=== PATIENT | female | born 1935 | race Caucasian/White ===

== ENCOUNTER 2017-10-18 13:00 | Inpatient (IN) | payer MEDICARE, OTHER ==
[2017-10-18 13:44] LABS: CHLORIDE,CL 96 mEq/L (98-106); SODIUM,NA 136 mEq/L (136-145)
[2017-10-18] MEDS ORDERED: Acetaminophen 325 MG Tab PO ONE (13:50)
--- NOTE | 2017-10-18 14:17 | EDM.PDOC ---
ED HPI GENERAL MEDICAL PROBLEM - General Chief Complaint: Respiratory Problem Stated Complaint: cough, chills Time Seen by Provider: 10/18/17 13:40 Source of Information: Reports: Patient, Family History Limitations: Reports: No Limitations - History of Present Illness INITIAL COMMENTS - FREE TEXT/NARRATIVE: Nathalia is a 81 yo female who presents to the ER, accompanied by her daughter, with concerns of not feeling well. States she had a cold this last week along with her . She states her and her both were started on Zpacks and she gradually got worse. States she became really weak today and has been running a fever. Admits to an acute cough that is nonproductive. States she has body aches as well. Admits to having both pneumococcal vaccines in the past and yearly influenza vaccines. She states she has not taken anything for the fevers. She has been having a hard time getting around due to the weakness. States she does currently smoke and has a 50+ year history. Duration: Getting Worse Location: Reports: Chest Chest Pain Score (Numeric/FACES): 7 - Related Data Allergies Allergy/AdvReac Type Severity Reaction Status Date / Time codeine Allergy Hives Verified 10/18/17 13:14 diazepam [From Valium] Allergy Hallucinati Verified 10/18/17 13:14 ons regadenoson [From Lexiscan] Allergy Syncope Verified 10/18/17 13:14 tramadol Allergy Difficulty Verified 10/18/17 13:14 Breathing Home Meds: Home Meds Aspirin [Ecotrin] 325 mg PO BID 02/01/15 [History] Cholecalciferol (Vitamin D3) [Vitamin D3] 5,000 unit PO DAILY 02/01/15 [History] Docusate Sodium [Colace] 100 mg PO BEDTIME 02/01/15 [History] Lutein 20 mg PO DAILY 02/01/15 [History] Magnesium 250 mg PO DAILY 02/01/15 [History] Vitamin B Complex [B Complex] 1 each PO DAILY 02/01/15 [History] Vitamin E 400 unit PO DAILY 02/01/15 [History] atorvaSTATin [Lipitor] 20 mg PO WITHLUNCH 02/01/15 [History] Denosumab [Prolia] 60 mg SUBCUT Q6M 02/13/15 [History] Meclizine HCl 25 mg PO Q8HR PRN 08/14/16 [History] Calcium Carbonate [Calcium] 600 mg PO DAILY 10/18/17 [History] Past Medical History HEENT History: Reports: Allergic Rhinitis Cardiovascular History: Reports: High Cholesterol Gastrointestinal History: Reports: Chronic Constipation, GERD Musculoskeletal History: Reports: Osteoporosis Neurological History: Reports: Vertigo - Past Surgical History Female Surgical History: Reports: Other (See Below) Neurological Surgical History: Reports: Lumbar Spine Musculoskeletal Surgical History: Reports: Other (See Below) Social & Family History - Family History Family Medical History: Noncontributory - Tobacco Use Smoking Status *Q: Current Every Day Smoker Years of Tobacco use: 50 Packs/Tins Daily: 0.5 - Caffeine Use Caffeine Use: Reports: Coffee, Tea - Recreational Drug Use Recreational Drug Use: No ED ROS GENERAL - Review of Systems Review Of Systems: See Below Constitutional: Reports: Fever, Chills, Weakness, Fatigue HEENT: Reports: Sinus Problem Respiratory: Reports: Shortness of Breath, Wheezing, Cough. Denies: Sputum Cardiovascular: Reports: Lightheadedness. Denies: Chest Pain, Palpitations, Syncope GI/Abdominal: Denies: Abdominal Pain, Constipation, Diarrhea, Nausea, Vomiting : Reports: No Symptoms Musculoskeletal: Reports: Other (generalized achiness) Neurological: Reports: No Symptoms Psychiatric: Reports: No Symptoms ED EXAM, GENERAL - Physical Exam Exam: See Below Exam Limited By: No Limitations General Appearance: Alert, Mild Distress, Moderate Distress Eye Exam: Bilateral Eye: Normal Inspection Ears: Normal External Exam, Normal Canal, Hearing Grossly Normal, Normal TMs Nose: No Blood, Clear Rhinorrhea. No: Nasal Tenderness, Nasal Swelling Throat/Mouth: Normal Inspection, Normal Lips, Normal Oropharynx, Normal Voice, No Airway Compromise Head: Atraumatic, Normocephalic Neck: Normal Inspection, Supple, Non-Tender. No: Lymphadenopathy (L), Lymphadenopathy (R) Respiratory/Chest: Decreased Breath Sounds, Rhonchi, Wheezing (left lower lobe) Cardiovascular: Regular Rate, Rhythm, No Edema, No Murmur GI/Abdominal: Normal Bowel Sounds, Soft, Non-Tender, No Organomegaly, No Distention, No Abnormal Bruit, No Mass Extremities: Non-Tender, No Pedal Edema, Slow Capillary Refill Neurological: Alert, Oriented, Normal Cognition Psychiatric: Normal Affect, Normal Mood Skin Exam: Dry, Intact, Normal Color, No Rash, Increased Warmth Course - Vital Signs Last Recorded V/S: Last Vital Signs Temp 99.9 F 10/18/17 13:17 Pulse 86 10/18/17 13:17 Resp 20 10/18/17 13:17 BP 137/79 10/18/17 13:17 Pulse Ox 94 L 10/18/17 13:17 - Orders/Labs/Meds Orders: Active Orders 24 hr Category Date Time Status Patient Status Manage Transfer [TRANSFER] Routine ADT 10/18/17 14:06 Ordered Chest 2V [CR] Stat Exams 10/18/17 13:10 Ordered CULTURE BLOOD [BC] Stat Lab 10/18/17 13:20 Received CULTURE BLOOD [BC] Stat Lab 10/18/17 13:20 Received Blood Culture x2 Reflex Set [OM.PC] Stat Oth 10/18/17 13:10 Ordered Resuscitation Status Routine Resus Stat 10/18/17 14:07 Ordered Labs: Laboratory Tests 10/18/17 10/18/17 Range/Units 13:20 13:20 WBC 11.8 H (5.0-10.0) 10^3/uL RBC 4.21 (4.00-5.50) 10^6/uL Hgb 13.8 (12.0-16.0) g/dL Hct 41.0 (37.0-47.0) % MCV 97.4 H (82.0-94.0) fL MCH 32.8 H (27.0-32.0) pg MCHC 33.7 (33.0-38.0) g/dL RDW Coeff of Zan 13.5 (11.0-15.0) % Plt Count 139 L (150-400) 10^3/uL Add Manual Diff Yes Neutrophils % (Manual) 77 (35-85) % Band Neutrophils % 14 H (0-5) % Lymphocytes % (Manual) 4 L (21-55) % Monocytes % (Manual) 5 (2-12) % Absolute Neutrophils 10.74 H (1.80-7.00) 10^3/uL Lymphocytes # (Manual) 0.47 L (1.00-4.80) 10^3/uL Monocytes # (Manual) 0.59 (0.00-0.80) 10^3/uL Sodium 136 (136-145) mEq/L Potassium 4.1 (3.5-5.0) mEq/L Chloride 96 L (98-106) mEq/L Carbon Dioxide 29 (21-32) mmol/L BUN 15 (7-18) mg/dL Creatinine 1.0 (0.6-1.0) mg/dL Est Cr Clr Drug Dosing 36.08 mL/min Estimated GFR (MDRD) 53 L (>=60) mL/min Glucose 104 H (75-99) mg/dL Calcium 9.8 (8.4-10.1) mg/dL C-Reactive Protein < 0.2 L (0.2-0.8) mg/dL Meds: Medications Discontinued Medications Generic Name Dose Route Start Last Admin Trade Name Freq PRN Reason Stop Dose Admin Acetaminophen 650 mg 10/18/17 13:50 10/18/17 13:52 Tylenol PO 10/18/17 13:51 650 mg NOW ONE Administration Departure - Departure Time of Disposition: 14:18 Disposition: Admitted As Inpatient 68 Clinical Impression: Pneumonia Qualifiers: Pneumonia type: due to unspecified organism Laterality: unspecified laterality Lung location: unspecified part of lung Qualified Code(s): J18.9 - Pneumonia, unspecified organism - Discharge Information Referrals: Rodolfo Rodrigues MD [Primary Care Provider] - Forms: ED Department Discharge - Problem List & Annotations (1) Pneumonia SNOMED Code(s): 296237959 Code(s): J18.9 - PNEUMONIA, UNSPECIFIED ORGANISM Status: Acute Current Visit: Yes Qualifiers: Pneumonia type: due to unspecified organism Laterality: unspecified laterality Lung location: unspecified part of lung Qualified Code(s): J18.9 - Pneumonia, unspecified organism - Problem List Review Problem List Initiated/Reviewed/Updated: Yes - My Orders Last 24 Hours: My Active Orders 10/18/17 13:10 Chest 2V [CR] Stat Blood Culture x2 Reflex Set [OM.PC] Stat 10/18/17 13:20 CULTURE BLOOD [BC] Stat CULTURE BLOOD [BC] Stat 10/18/17 14:06 Patient Status Manage Transfer [TRANSFER] Routine 10/18/17 14:07 Resuscitation Status Routine - Assessment/Plan Admission H&P: Please use this note as an admission H&P Last 24 Hours: My Active Orders 10/18/17 13:10 Chest 2V [CR] Stat Blood Culture x2 Reflex Set [OM.PC] Stat 10/18/17 13:20 CULTURE BLOOD [BC] Stat CULTURE BLOOD [BC] Stat 10/18/17 14:06 Patient Status Manage Transfer [TRANSFER] Routine 10/18/17 14:07 Resuscitation Status Routine Plan: Nathalia's laboratory work was stable with mild leukocytosis. CRP was within normal assay range. Will admit to Dr. Lundy's services under acute care. Chest showed possible infiltrate in the left lower lobe. Will start IV antibiotics, neb treatments, etc... blood cultures are pending. Dr. Lundy alerted of admission.
[2017-10-18] MEDS ORDERED: Meclizine 12.5 MG Tab PO PRN (14:47)
[2017-10-18] MEDS ORDERED: Levofloxacin/Dextrose 5%-Water 500 MG in Premix Bag 1 BAG IV SCH (15:00)
[2017-10-18] MEDS: Ibuprofen 200 MG Tab PO PRN (15:06)
[2017-10-18] MEDS: Enoxaparin 40 MG/0.4 ML Syringe SUBCUT SCH (15:07)
[2017-10-18] MEDS: Albuterol/Ipratropium 3.0-0.5 MG/3 ML Neb Soln NEB SCH ×2 (15:07→19:22)
[2017-10-18] MEDS: Sodium Chloride 0.9% 1,000 ML IV SCH (15:11)
[2017-10-18] MEDS: Aspirin 325 MG Tab.EC PO SCH (19:22)
[2017-10-18] MEDS: Docusate Sodium 100 MG Cap PO SCH (19:22)
[2017-10-19] MEDS: Ondansetron 4 MG/2 ML SDV IVPUSH PRN ×2 (01:02→15:36)
[2017-10-19] MEDS: Acetaminophen 325 MG Tab PO PRN ×2 (03:32→15:44)
[2017-10-19] MEDS: Sodium Chloride 0.9% 1,000 ML IV SCH ×3 (04:49→20:34)
[2017-10-19] MEDS: Albuterol/Ipratropium 3.0-0.5 MG/3 ML Neb Soln NEB SCH ×4 (08:03→20:34)
[2017-10-19] MEDS: Calcium Carbonate 500 MG Tab.Chew PO SCH (08:05)
[2017-10-19] MEDS: Aspirin 325 MG Tab.EC PO SCH ×2 (08:05→20:34)
[2017-10-19] MEDS: atorvaSTATin 20 MG Tab PO SCH (11:11)
[2017-10-19] MEDS: Enoxaparin 40 MG/0.4 ML Syringe SUBCUT SCH (15:35)
[2017-10-19] MEDS: Levofloxacin/Dextrose 5%-Water 250 MG in Premix Bag 1 BAG IV SCH (15:36)
[2017-10-19] MEDS: Ibuprofen 200 MG Tab PO PRN (20:34)
[2017-10-19] MEDS: guaiFENesin 200 MG Tab PO SCH (20:34)
[2017-10-19] MEDS: Docusate Sodium 100 MG Cap PO SCH (20:34)
--- NOTE | 2017-10-19 21:45 | PCM.PN ---
- General Info Date of Service: 10/19/17 Admission Dx/Problem (Free Text): Pneumonia Functional Status: Reports: Pain Controlled, Tolerating Diet, Ambulating - Review of Systems General: Reports: Fever, Weakness, Fatigue HEENT: Reports: Sinus Congestion, Rhinitis. Denies: Ear Pain, Sore Throat Pulmonary: Reports: Shortness of Breath, Cough, Sputum Cardiovascular: Denies: Chest Pain, Edema, Lightheadedness Gastrointestinal: Denies: Abdominal Pain, Decreased Appetite, Nausea, Vomiting Genitourinary: Reports: No Symptoms Musculoskeletal: Reports: No Symptoms Skin: Reports: No Symptoms Neurological: Reports: Weakness Psychiatric: Reports: No Symptoms - Patient Data Vitals - Most Recent: Last Vital Signs Temp 98.7 F 10/19/17 20:34 Pulse 86 10/19/17 20:00 Resp 20 10/19/17 20:00 BP 106/35 L 10/19/17 20:00 Pulse Ox 98 10/19/17 20:00 Weight - Most Recent: 121 lb 12.8 oz I&O - Last 24 Hours: Intake & Output 10/19/17 10/19/17 10/19/17 06:59 14:59 22:59 Intake Total 1180 Balance 1180 Lab Results Last 24 Hours: Laboratory Results - last 24 hr 10/19/17 10/19/17 Range/Units 07:16 07:16 WBC 12.0 H (5.0-10.0) 10^3/uL RBC 3.36 L (4.00-5.50) 10^6/uL Hgb 11.0 L (12.0-16.0) g/dL Hct 32.6 L (37.0-47.0) % MCV 97.0 H (82.0-94.0) fL MCH 32.7 H (27.0-32.0) pg MCHC 33.7 (33.0-38.0) g/dL RDW Coeff of Zan 13.0 (11.0-15.0) % Plt Count 102 L (150-400) 10^3/uL Neut % (Auto) 88.3 H (35-85) % Lymph % (Auto) 4.0 L (10-55) % [place] % (Auto) 7.6 (0-16) % Eos % (Auto) 0 (0-5) % Baso % (Auto) 0.1 (0-3) % Neut # (Auto) 10.60 H (1.80-7.00) 10^3/uL Lymph # (Auto) 0.48 L (1.00-4.80) 10^3/uL [place] # (Auto) 0.91 H (0.00-0.80) 10^3/uL Eos # (Auto) 0.00 (0.00-0.45) 10^3/uL Baso # (Auto) 0.01 10^3/uL Sodium 133 L (136-145) mEq/L Potassium 4.0 (3.5-5.0) mEq/L Chloride 101 (98-106) mEq/L Carbon Dioxide 25 (21-32) mmol/L BUN 15 (7-18) mg/dL Creatinine 1.2 H (0.6-1.0) mg/dL Est Cr Clr Drug Dosing 30.07 mL/min Estimated GFR (MDRD) 43 L (>=60) mL/min Glucose 92 (75-99) mg/dL Calcium 8.0 L (8.4-10.1) mg/dL C-Reactive Protein 3.9 H (0.2-0.8) mg/dL Med Orders - Current: Current Medications Acetaminophen (Tylenol) 650 mg PO Q4H PRN PRN Reason: Pain (Mild 1-3)/fever Last Admin: 10/19/17 15:44 Dose: 650 mg Albuterol/Ipratropium (Duoneb 3.0-0.5 Mg/3 Ml) 3 ml NEB QIDRT [facility] Last Admin: 10/19/17 20:34 Dose: 3 ml Aspirin (Ecotrin) 325 mg PO BID [facility] Last Admin: 10/19/17 20:34 Dose: 325 mg Atorvastatin Calcium (Lipitor) 20 mg PO WITHLUNCH [facility] Last Admin: 10/19/17 11:11 Dose: 20 mg Calcium Carbonate/Glycine (Tums) 500 mg PO DAILY [facility] Last Admin: 10/19/17 08:05 Dose: 500 mg Docusate Sodium (Colace) 100 mg PO BEDTIME [facility] Last Admin: 10/19/17 20:34 Dose: 100 mg Enoxaparin Sodium (Lovenox) 40 mg SUBCUT Q24H [facility] Last Admin: 01/08/18 15:35 Dose: 40 mg Guaifenesin (Organ-I Nr) 200 mg PO TID [facility] Last Admin: 10/19/17 20:34 Dose: 200 mg Sodium Chloride (Normal Saline) 1,000 mls @ 75 mls/hr IV ASDIRECTED [facility] Last Admin: 10/19/17 20:34 Dose: 75 mls/hr Levofloxacin/Dextrose 250 mg/ (Premix) 50 mls @ 50 mls/hr IV Q24H [facility] Last Admin: 10/19/17 15:36 Dose: 50 mls/hr Ibuprofen (Motrin) 400 mg PO Q6H PRN PRN Reason: Pain (mild 1-3) Last Admin: 10/19/17 20:34 Dose: 400 mg Magnesium Oxide (Magnesium Oxide) 250 mg PO DAILY [facility] Last Admin: 10/19/17 08:05 Dose: 250 mg Meclizine HCl (Antivert) 25 mg PO Q8H PRN PRN Reason: Dizziness Ondansetron HCl (Zofran) 4 mg IVPUSH Q6H PRN PRN Reason: Nausea/Vomiting Last Admin: 10/19/17 15:36 Dose: 4 mg Discontinued Medications Acetaminophen (Tylenol) 650 mg PO NOW ONE Stop: 10/18/17 13:51 Last Admin: 10/18/17 13:52 Dose: 650 mg Levofloxacin/Dextrose 500 mg/ (Premix) 100 mls @ 100 mls/hr IV Q24H [facility] Last Admin: 10/18/17 15:07 Dose: 100 mls/hr - Exam General: Alert, Oriented HEENT: Mucous Membr. Moist/[place] Neck: Supple Lungs: Decreased Breath Sounds, Crackles Cardiovascular: Regular Rate, Regular Rhythm GI/Abdominal Exam: Normal Bowel Sounds, Soft, Non-Tender Extremities: Normal Inspection, No Pedal Edema Skin: Warm, Dry Neurological: No New Focal Deficit - Problem List & Annotations (1) Pneumonia SNOMED Code(s): 138663619 Code(s): J18.9 - PNEUMONIA, UNSPECIFIED ORGANISM Status: Acute Priority: High Current Visit: Yes Qualifiers: Pneumonia type: due to unspecified organism Laterality: unspecified laterality Lung location: unspecified part of lung Qualified Code(s): J18.9 - Pneumonia, unspecified organism - Problem List Review Problem List Initiated/Reviewed/Updated: Yes - My Orders Last 24 Hours: My Active Orders 10/19/17 00:43 Ondansetron [Zofran] 4 mg IVPUSH Q6H PRN - Assessment Assessment:: Pneumonia - Plan Plan:: Patient relates continues to not feel well today. Ongoing wet cough but unable to expectorate. Feels short of breath. Oxygen sats are stable. Does continue to run fevers at times. Up to bathroom with standby assist, feels weak with exertion. WBC noted @ 12 today. CRP elevated at 3.9. Will continue with IV Levaquin, nebs. Add Mucinex. Encourage ambulation as tolerable. Inappropriate for transfer at this time due to weakness/cough/fever.
[2017-10-20] MEDS: Aspirin 325 MG Tab.EC PO SCH ×2 (07:38→20:44)
[2017-10-20] MEDS: Calcium Carbonate 500 MG Tab.Chew PO SCH (07:38)
[2017-10-20] MEDS: guaiFENesin 200 MG Tab PO SCH ×3 (07:38→20:44)
[2017-10-20] MEDS: Albuterol/Ipratropium 3.0-0.5 MG/3 ML Neb Soln NEB SCH ×4 (07:38→20:44)
[2017-10-20] MEDS ORDERED: Codeine/Promethazine 10-6.25 MG/5 ML Syrup 5 ML UD Cup PO PRN (08:59)
[2017-10-20] MEDS: atorvaSTATin 20 MG Tab PO SCH (11:42)
[2017-10-20] MEDS: Enoxaparin 40 MG/0.4 ML Syringe SUBCUT SCH (14:14)
[2017-10-20] MEDS: Levofloxacin/Dextrose 5%-Water 250 MG in Premix Bag 1 BAG IV SCH (14:14)
--- NOTE | 2017-10-20 15:08 | PCM.PN ---
- General Info Date of Service: 10/20/17 Admission Dx/Problem (Free Text): Pneumonia Functional Status: Reports: Pain Controlled, Tolerating Diet. Denies: Ambulating - Review of Systems General: Reports: Fever, Weakness, Fatigue HEENT: Reports: Sinus Congestion, Rhinitis. Denies: Sore Throat Pulmonary: Reports: Cough, Sputum. Denies: Shortness of Breath Cardiovascular: Denies: Chest Pain, Edema, Lightheadedness Gastrointestinal: Denies: Abdominal Pain, Nausea, Vomiting Genitourinary: Denies: Dysuria, Frequency Musculoskeletal: Reports: No Symptoms Skin: Reports: No Symptoms Neurological: Reports: No Symptoms - Patient Data Vitals - Most Recent: Last Vital Signs Temp 97.4 F 10/20/17 08:00 Pulse 72 10/20/17 08:00 Resp 16 10/20/17 08:00 BP 114/56 L 10/20/17 08:00 Pulse Ox 99 10/20/17 08:00 Weight - Most Recent: 121 lb 12.8 oz Lab Results Last 24 Hours: Laboratory Results - last 24 hr 10/20/17 10/20/17 Range/Units 07:25 07:25 WBC 6.8 (5.0-10.0) 10^3/uL RBC 3.25 L (4.00-5.50) 10^6/uL Hgb 10.7 L (12.0-16.0) g/dL Hct 32.2 L (37.0-47.0) % MCV 99.1 H (82.0-94.0) fL MCH 32.9 H (27.0-32.0) pg MCHC 33.2 (33.0-38.0) g/dL RDW Coeff of Zan 13.6 (11.0-15.0) % Plt Count 89 L (150-400) 10^3/uL Neut % (Auto) 73.0 (35-85) % Lymph % (Auto) 14.1 (10-55) % Iron % (Auto) 12.8 (0-16) % Eos % (Auto) 0 (0-5) % Baso % (Auto) 0.1 (0-3) % Neut # (Auto) 4.95 (1.80-7.00) 10^3/uL Lymph # (Auto) 0.96 L (1.00-4.80) 10^3/uL Iron # (Auto) 0.87 H (0.00-0.80) 10^3/uL Eos # (Auto) 0.00 (0.00-0.45) 10^3/uL Baso # (Auto) 0.01 10^3/uL Sodium 138 (136-145) mEq/L Potassium 4.0 (3.5-5.0) mEq/L Chloride 106 (98-106) mEq/L Carbon Dioxide 25 (21-32) mmol/L BUN 10 (7-18) mg/dL Creatinine 1.1 H (0.6-1.0) mg/dL Est Cr Clr Drug Dosing 32.80 mL/min Estimated GFR (MDRD) 48 L (>=60) mL/min Glucose 87 (75-99) mg/dL Calcium 8.0 L (8.4-10.1) mg/dL C-Reactive Protein 2.1 H (0.2-0.8) mg/dL Med Orders - Current: Current Medications Acetaminophen (Tylenol) 650 mg PO Q4H PRN PRN Reason: Pain (Mild 1-3)/fever Last Admin: 10/19/17 15:44 Dose: 650 mg Albuterol/Ipratropium (Duoneb 3.0-0.5 Mg/3 Ml) 3 ml NEB QIDRT [facility] Last Admin: 10/20/17 11:42 Dose: 3 ml Aspirin (Ecotrin) 325 mg PO BID [facility] Last Admin: 10/20/17 07:38 Dose: 325 mg Atorvastatin Calcium (Lipitor) 20 mg PO WITHLUNCH [facility] Last Admin: 10/20/17 11:42 Dose: 20 mg Calcium Carbonate/Glycine (Tums) 500 mg PO DAILY [facility] Last Admin: 10/20/17 07:38 Dose: 500 mg Docusate Sodium (Colace) 100 mg PO BEDTIME [facility] Last Admin: 10/19/17 20:34 Dose: 100 mg Enoxaparin Sodium (Lovenox) 40 mg SUBCUT Q24H [facility] Last Admin: 10/20/17 14:14 Dose: 40 mg Guaifenesin (Organ-I Nr) 200 mg PO TID [facility] Last Admin: 10/20/17 14:14 Dose: 200 mg Levofloxacin/Dextrose 250 mg/ (Premix) 50 mls @ 50 mls/hr IV Q24H [facility] Last Admin: 10/20/17 14:14 Dose: 50 mls/hr Ibuprofen (Motrin) 400 mg PO Q6H PRN PRN Reason: Pain (mild 1-3) Last Admin: 10/19/17 20:34 Dose: 400 mg Magnesium Oxide (Magnesium Oxide) 250 mg PO DAILY [facility] Last Admin: 10/20/17 07:38 Dose: 250 mg Meclizine HCl (Antivert) 25 mg PO Q8H PRN PRN Reason: Dizziness Ondansetron HCl (Zofran) 4 mg IVPUSH Q6H PRN PRN Reason: Nausea/Vomiting Last Admin: 10/19/17 15:36 Dose: 4 mg Discontinued Medications Acetaminophen (Tylenol) 650 mg PO NOW ONE Stop: 10/18/17 13:51 Last Admin: 10/18/17 13:52 Dose: 650 mg Levofloxacin/Dextrose 500 mg/ (Premix) 100 mls @ 100 mls/hr IV Q24H [facility] Last Admin: 10/18/17 15:07 Dose: 100 mls/hr Sodium Chloride (Normal Saline) 1,000 mls @ 75 mls/hr IV ASDIRECTED [facility] Last Admin: 10/19/17 20:34 Dose: 75 mls/hr - Exam General: Alert, Oriented HEENT: Mucous Membr. Moist/[place] Neck: Supple Lungs: Crackles Cardiovascular: Regular Rate, Regular Rhythm GI/Abdominal Exam: Normal Bowel Sounds, Soft, Non-Tender Back Exam: Normal Inspection Extremities: Normal Inspection, No Pedal Edema Skin: Warm, Dry Neurological: No New Focal Deficit - Problem List & Annotations (1) Pneumonia SNOMED Code(s): 251518711 Code(s): J18.9 - PNEUMONIA, UNSPECIFIED ORGANISM Status: Acute Priority: High Current Visit: Yes Qualifiers: Pneumonia type: due to unspecified organism Laterality: unspecified laterality Lung location: unspecified part of lung Qualified Code(s): J18.9 - Pneumonia, unspecified organism - Problem List Review Problem List Initiated/Reviewed/Updated: Yes - My Orders Last 24 Hours: My Active Orders 10/20/17 09:02 Ambulate [RC] .PRN - Assessment Assessment:: Pneumonia - Plan Plan:: Patient relates continues to not feel well today. Ongoing wet cough but unable to expectorate. Feels short of breath. Oxygen sats are stable. Does continue to run fevers at times. Up to bathroom with standby assist, feels weak with exertion. WBC noted @ 12 today. CRP elevated at 3.9. Will continue with IV Levaquin, nebs. Add Mucinex. Encourage ambulation as tolerable. Inappropriate for transfer at this time due to weakness/cough/fever. 10-19-2017 Patient starting to feel somewhat better. Does admit that didn't sleep well last night due to the cough but feels less discomfort and burning in her chest, no shortness of breath. Oxygen sats remain stable. Fever last evening. Tolerating diet well. Continue with IV antibiotics, nebs. Mucinex. Up and ambulating. Probable discharge tomorrow.
[2017-10-20] MEDS: Docusate Sodium 100 MG Cap PO SCH (20:44)
[2017-10-21] MEDS: Calcium Carbonate 500 MG Tab.Chew PO SCH (07:50)
[2017-10-21] MEDS: Aspirin 325 MG Tab.EC PO SCH (07:50)
[2017-10-21] MEDS: guaiFENesin 200 MG Tab PO SCH (07:50)
[2017-10-21] MEDS: Albuterol/Ipratropium 3.0-0.5 MG/3 ML Neb Soln NEB SCH (07:50)
[2017-10-21 08:51] VITALS: BP 139/57
--- NOTE | 2017-10-21 21:03 | PCM.DCSUM1 ---
Discharge Summary - Hospital Course Free Text/Narrative:: Patient presented to ER with a one week history of cough, weakness and sinus congestion. Patient had previously been treated with a course of zithromax but status was worsening. Not eating or drinking well as she wasn't getting around due to weakness. Patient running fevers at home. ADmitted for pneumonia, started on IV fluids and antibiotics. WBC on admit 11.8 with left shift. CRP negative. Influenza screen negative. - Discharge Data Discharge Date: 10/21/17 Discharge Disposition: Home, Self-Care 01 Condition: Good - Discharge Diagnosis/Problem(s) (1) Pneumonia SNOMED Code(s): 528972458 ICD Code: J18.9 - PNEUMONIA, UNSPECIFIED ORGANISM Status: Acute Priority : High Qualifiers: Pneumonia type: due to unspecified organism Laterality: unspecified laterality Lung location: unspecified part of lung Qualified Code(s): J18.9 - Pneumonia, unspecified organism - Patient Summary/Data Complications: none Hospital Course: Patient has had slow improvement of status over the last 3 days. Lungs sounds did note crackles on admit, have improved with better air exchange and crackles improved. Is up and ambulating now with less shortness of breath. Cough decreasing. Did run low grade temps throughout stay. Labs stable, WBC 4.1, CRP did increase to 3.9 but has stabilized now to 0.6. Discharge home on Levaquin and prednisone. Follow up with Dr. Rodrigues in 10 days. - Patient Instructions Diet: Usual Diet as Tolerated Activity: As Tolerated - Discharge Plan Prescriptions/Med Rec: Levofloxacin [Levaquin] 500 mg PO Q24H #7 tablet predniSONE [Prednisone] 20 mg PO DAILY #5 tablet Home Medications: Home Meds Aspirin [Ecotrin] 325 mg PO BID 02/01/15 [History] Cholecalciferol (Vitamin D3) [Vitamin D3] 5,000 unit PO DAILY 02/01/15 [History] Docusate Sodium [Colace] 100 mg PO BEDTIME 02/01/15 [History] Lutein 20 mg PO DAILY 02/01/15 [History] Magnesium 250 mg PO DAILY 02/01/15 [History] Vitamin B Complex [B Complex] 1 each PO DAILY 02/01/15 [History] Vitamin E 400 unit PO DAILY 02/01/15 [History] atorvaSTATin [Lipitor] 20 mg PO WITHLUNCH 02/01/15 [History] Denosumab [Prolia] 60 mg SUBCUT Q6M 02/13/15 [History] Meclizine HCl 25 mg PO Q8HR PRN 08/14/16 [History] Calcium Carbonate [Calcium] 600 mg PO DAILY 10/18/17 [History] Levofloxacin [Levaquin] 500 mg PO Q24H #7 tablet 10/21/17 [Rx] predniSONE [Prednisone] 20 mg PO DAILY #5 tablet 10/21/17 [Rx] Patient Handouts: Community-Acquired Pneumonia, Adult Forms: ED Department Discharge Referrals: Rodolfo Rodrigues MD [Primary Care Provider] - (Follow up with Dr. Rodrigues in 10 days ) - Discharge Summary/Plan Comment DC Time >30 min.: No Discharge Summary/Plan Comment: Discharge home on Levaquin, prednisone. - General Info Date of Service: 10/21/17 Admission Dx/Problem (Free Text: Pneumonia Functional Status: Reports: Pain Controlled, Tolerating Diet, Ambulating - Review of Systems General: Reports: Fever, Weakness, Fatigue HEENT: Reports: Rhinitis Pulmonary: Reports: Cough. Denies: Shortness of Breath, Sputum Cardiovascular: Denies: Chest Pain, Edema, Lightheadedness Gastrointestinal: Denies: Abdominal Pain, Nausea, Vomiting Genitourinary: Reports: No Symptoms Musculoskeletal: Reports: No Symptoms Skin: Reports: No Symptoms Neurological: Reports: No Symptoms - Patient Data Vitals - Most Recent: Last Vital Signs Temp 98.5 F 10/21/17 08:00 Pulse 66 10/21/17 08:00 Resp 18 10/21/17 08:00 BP 139/57 L 10/21/17 08:00 Pulse Ox 95 10/21/17 08:00 Weight - Most Recent: 121 lb 12.8 oz Lab Results - Last 24 hrs: Laboratory Results - last 24 hr 10/21/17 10/21/17 Range/Units 06:50 06:50 WBC 4.1 L (5.0-10.0) 10^3/uL RBC 3.32 L (4.00-5.50) 10^6/uL Hgb 10.9 L (12.0-16.0) g/dL Hct 32.5 L (37.0-47.0) % MCV 97.9 H (82.0-94.0) fL MCH 32.8 H (27.0-32.0) pg MCHC 33.5 (33.0-38.0) g/dL RDW Coeff of Zan 13.4 (11.0-15.0) % Plt Count 105 L (150-400) 10^3/uL Neut % (Auto) 57.9 (35-85) % Lymph % (Auto) 26.1 (10-55) % [place] % (Auto) 15.6 (0-16) % Eos % (Auto) 0.2 (0-5) % Baso % (Auto) 0.2 (0-3) % Neut # (Auto) 2.37 (1.80-7.00) 10^3/uL Lymph # (Auto) 1.07 (1.00-4.80) 10^3/uL [place] # (Auto) 0.64 (0.00-0.80) 10^3/uL Eos # (Auto) 0.01 (0.00-0.45) 10^3/uL Baso # (Auto) 0.01 10^3/uL Sodium 138 (136-145) mEq/L Potassium 4.1 (3.5-5.0) mEq/L Chloride 105 (98-106) mEq/L Carbon Dioxide 25 (21-32) mmol/L BUN 9 (7-18) mg/dL Creatinine 1.0 (0.6-1.0) mg/dL Est Cr Clr Drug Dosing 36.08 mL/min Estimated GFR (MDRD) 53 L (>=60) mL/min Glucose 87 (75-99) mg/dL Calcium 8.3 L (8.4-10.1) mg/dL C-Reactive Protein 0.6 (0.2-0.8) mg/dL Med Orders - Current: Current Medications Discontinued Medications Acetaminophen (Tylenol) 650 mg PO NOW ONE Stop: 10/18/17 13:51 Last Admin: 10/18/17 13:52 Dose: 650 mg Acetaminophen (Tylenol) 650 mg PO Q4H PRN PRN Reason: Pain (Mild 1-3)/fever Last Admin: 10/19/17 15:44 Dose: 650 mg Albuterol/Ipratropium (Duoneb 3.0-0.5 Mg/3 Ml) 3 ml NEB QIDRT [facility] Last Admin: 10/21/17 07:50 Dose: 3 ml Aspirin (Ecotrin) 325 mg PO BID [facility] Last Admin: 10/21/17 07:50 Dose: 325 mg Atorvastatin Calcium (Lipitor) 20 mg PO WITHLUNCH [facility] Last Admin: 10/20/17 11:42 Dose: 20 mg Calcium Carbonate/Glycine (Tums) 500 mg PO DAILY [facility] Last Admin: 10/21/17 07:50 Dose: 500 mg Docusate Sodium (Colace) 100 mg PO BEDTIME [facility] Last Admin: 10/20/17 20:44 Dose: 100 mg Enoxaparin Sodium (Lovenox) 40 mg SUBCUT Q24H [facility] Last Admin: 10/20/17 14:14 Dose: 40 mg Guaifenesin (Organ-I Nr) 200 mg PO TID [facility] Last Admin: 10/21/17 07:50 Dose: 200 mg Levofloxacin/Dextrose 500 mg/ (Premix) 100 mls @ 100 mls/hr IV Q24H [facility] Last Admin: 10/18/17 15:07 Dose: 100 mls/hr Sodium Chloride (Normal Saline) 1,000 mls @ 75 mls/hr IV ASDIRECTED [facility] Last Admin: 10/19/17 20:34 Dose: 75 mls/hr Levofloxacin/Dextrose 250 mg/ (Premix) 50 mls @ 50 mls/hr IV Q24H [facility] Last Admin: 10/20/17 14:14 Dose: 50 mls/hr Ibuprofen (Motrin) 400 mg PO Q6H PRN PRN Reason: Pain (mild 1-3) Last Admin: 10/19/17 20:34 Dose: 400 mg Magnesium Oxide (Magnesium Oxide) 250 mg PO DAILY [facility] Last Admin: 10/21/17 07:50 Dose: 250 mg Meclizine HCl (Antivert) 25 mg PO Q8H PRN PRN Reason: Dizziness Ondansetron HCl (Zofran) 4 mg IVPUSH Q6H PRN PRN Reason: Nausea/Vomiting Last Admin: 10/19/17 15:36 Dose: 4 mg - Exam General: Reports: Alert, Oriented HEENT: Reports: Mucous Membr. Moist/[place] Neck: Reports: Supple Lungs: Reports: Clear to Auscultation, Normal Respiratory Effort Cardiovascular: Reports: Regular Rate, Regular Rhythm GI/Abdominal Exam: Normal Bowel Sounds, Soft, Non-Tender *Q Meaningful Use (DIS) - VTE *Q VTE Criteria *Q: - Stroke *Q Stroke Criteria *Q: - AMI *Q AMI Criteria *Q:
== END 2017-10-21 10:46 | disposition home or self-care (01) | DRG 195 ==
LOC: CC.ED 13:00 → CC.MS 14:20 → UNDOADMIN 14:20 → CC.MS 14:36
PROVIDERS: ADMIT Physician Assistant Medical; ATTEND Family Medicine
DX: J18.9 Pneumonia, unspecified organism (principal); E78.00 Pure hypercholesterolemia, unspecified; L21.9 Seborrheic dermatitis, unspecified; M81.0 Age-related osteoporosis without current pathological fracture; F17.210 Nicotine dependence, cigarettes, uncomplicated; Z88.8 Allergy status to other drugs, medicaments and biological substances; Z79.82 Long term (current) use of aspirin; Z79.899 Other long term (current) drug therapy
CPT/HCPCS: 36415; 71046; 80048; 85025; 86140; 87040 ×2; 87804 ×2; 99284; A9270; 81001; 94640; J1650; J1956; J2405; J7030

== ENCOUNTER 2019-12-31 00:19 | Inpatient (IN) | payer MEDICARE, OTHER ==
[2019-12-31] MEDS ORDERED: Albuterol/Ipratropium 3.0-0.5 MG/3 ML Neb Soln NEB ONE (00:50)
[2019-12-31] MEDS ORDERED: Acetaminophen 325 MG Tab PO ONE (00:58)
[2019-12-31] MEDS ORDERED: Sodium Chloride 0.9% 1,000 ML IV SCH (01:00)
[2019-12-31] MEDS ORDERED: cefTRIAXone 2 GM Vial IVPUSH ONE (01:12)
[2019-12-31] MEDS ORDERED: Azithromycin 250 MG Tab PO ONE (01:13)
[2019-12-31 01:14] LABS: CHLORIDE,CL 96 mEq/L (98-106); SODIUM,NA 134 mEq/L (136-145)
--- NOTE | 2019-12-31 01:16 | EDM.PDOC ---
ED HPI GENERAL MEDICAL PROBLEM - General Chief Complaint: Respiratory Problem Stated Complaint: SOB Time Seen by Provider: 12/31/19 00:20 Source of Information: Reports: Patient, EMS History Limitations: Reports: No Limitations - History of Present Illness INITIAL COMMENTS - FREE TEXT/NARRATIVE: in with c/o cough and congestion with sob and fever x 1 week, was seen by [facility] and started n zithromax, has not been exposed to anyone with covid 19 and has not been to any area that has a person with covid19. denies any ear, nose or throat sx, no cp, no abd pain, no nvdc, no rash Onset: Gradual Duration: Week(s): (1 week), Getting Worse Severity: Moderate Improves with: Reports: None Worsens with: Reports: None Associated Symptoms: Reports: Cough, cough w sputum, Fever/Chills, Shortness of Breath, Weakness. Denies: Chest Pain, Headaches, Nausea/Vomiting, Rash Treatments [employer]: Reports: Other Medication(s) (zithromax) - Related Data Allergies Allergy/AdvReac Type Severity Reaction Status Date / Time codeine Allergy Hives Verified 12/31/19 00:20 diazepam [From Valium] Allergy Hallucinati Verified 12/31/19 00:20 ons regadenoson [From Lexiscan] Allergy Syncope Verified 12/31/19 00:20 tramadol Allergy Difficulty Verified 12/31/19 00:20 Breathing Home Meds: Home Meds Aspirin [Ecotrin EC] 325 mg PO BID 02/01/15 [History] Cholecalciferol (Vitamin D3) [Vitamin D3] 5,000 unit PO DAILY 02/01/15 [History] Docusate Sodium [Colace] 100 mg PO BEDTIME 02/01/15 [History] Lutein 20 mg PO DAILY 02/01/15 [History] Magnesium 250 mg PO DAILY 02/01/15 [History] Vitamin B Complex [B Complex] 1 each PO DAILY 02/01/15 [History] Vitamin E 400 unit PO DAILY 02/01/15 [History] atorvaSTATin [Lipitor] 20 mg PO WITHLUNCH 02/01/15 [History] Meclizine HCl 25 mg PO Q8HR PRN 08/14/16 [History] Calcium Carbonate [Calcium] 600 mg PO BID 10/18/17 [History] Alendronate [Fosamax] 10 mg PO Q7D 12/31/19 [History] Azithromycin 250 mg PO DAILY 12/31/19 [History] Past Medical History HEENT History: Reports: Allergic Rhinitis Cardiovascular History: Reports: High Cholesterol Respiratory History: Reports: COPD Gastrointestinal History: Reports: Chronic Constipation, GERD Musculoskeletal History: Reports: Osteoporosis Neurological History: Reports: Vertigo - Past Surgical History GI Surgical History: Reports: Cholecystectomy Neurological Surgical History: Reports: Lumbar Spine Social & Family History - Family History Family Medical History: Noncontributory - Tobacco Use Smoking Status *Q: Current Every Day Smoker Years of Tobacco use: 70 Packs/Tins Daily: 0.3 - Caffeine Use Caffeine Use: Reports: Coffee - Recreational Drug Use Recreational Drug Use: No ED ROS GENERAL - Review of Systems Review Of Systems: See Below Constitutional: Reports: Fever, Chills HEENT: Reports: No Symptoms. Denies: Ear Pain, Nose Pain, Throat Pain Respiratory: Reports: Shortness of Breath, Cough, Sputum (yellow). Denies: Wheezing, Pleuritic Chest Pain Cardiovascular: Denies: Chest Pain, Edema GI/Abdominal: Reports: No Symptoms. Denies: Abdominal Pain, Nausea, Vomiting : Reports: No Symptoms Musculoskeletal: Reports: No Symptoms. Denies: Neck Pain, Back Pain Skin: Reports: No Symptoms Neurological: Reports: No Symptoms. Denies: Dizziness, Headache Psychiatric: Reports: No Symptoms Hematologic/Lymphatic: Reports: No Symptoms Immunologic: Reports: No Symptoms ED EXAM, GENERAL - Physical Exam Exam: See Below Exam Limited By: No Limitations General Appearance: Alert, WD/WN, No Apparent Distress Ears: Normal External Exam ( ) Ear Exam: Bilateral Ear: Auricle Normal, Canal Normal, TM normal Nose: Normal Inspection Throat/Mouth: Normal Inspection, Normal Lips, Normal Oropharynx, Normal Voice, No Airway Compromise Head: Atraumatic, Normocephalic Neck: Normal Inspection, Supple, Non-Tender, Full Range of Motion Respiratory/Chest: No Respiratory Distress, Normal Breath Sounds, No Accessory Muscle Use, Chest Non-Tender, Rhonchi (right lung). No: Lungs Clear Cardiovascular: Normal Peripheral Pulses, Regular Rate, Rhythm, No Edema, No Murmur Peripheral Pulses: 2+: Radial (L), Radial (R) GI/Abdominal: Soft, Non-Tender, No Distention Back Exam: Normal Inspection, Full Range of Motion Extremities: Normal Inspection, Normal Range of Motion, Non-Tender, Normal Capillary Refill Neurological: Alert, Oriented, Normal Cognition, No Motor/Sensory Deficits Psychiatric: Normal Affect, Normal Mood Skin Exam: Warm, Dry, Intact, Normal Color, No Rash Lymphatic: No Adenopathy Course - Vital Signs Text/Narrative:: the pt was evaluated in the ED, the pts wbc is elevated with a left shift, overall general chem are neg, lactic acid is normal, Infl A&B are neg, cxr does show increased markings in the RLL compared with previous on this one view cxr, suspect RLL pneumonia, pt given a HHN of duoneb, IV drip, Rocephin 2gm IV as well as Zithromax 500mg IV, the pt was screened for covid 19 and even though she does have fever and cough with sob, she has not been exposed. Therefore is at low risk and will not be tested at this point. will admit the pt for pneumonia and will make changes to the tx plan as needed. Last Recorded V/S: Last Vital Signs Temp 38.4 C H 12/31/19 00:20 Pulse 94 12/31/19 00:20 Resp 20 12/31/19 00:20 BP 148/73 H 12/31/19 00:20 Pulse Ox 99 12/31/19 00:20 - Orders/Labs/Meds Orders: Active Orders 24 hr Category Date Time Status RT Aerosol Therapy [RC] ASDIRECTED Care 12/31/19 00:50 Active Chest 1V Frontal [CR] Stat Exams 12/31/19 00:43 Taken CULTURE BLOOD [BC] Stat Lab 12/31/19 00:30 Received CULTURE BLOOD [BC] Stat Lab 12/31/19 00:35 Received Sodium Chloride 0.9% [Normal Saline] 1,000 ml Med 12/31/19 01:00 Active IV ASDIRECTED Blood Culture x2 Reflex Set [OM.PC] Stat Oth 12/31/19 00:43 Ordered Isolation [COMM] Routine Oth 12/31/19 00:44 Active Medication Orders Sodium Chloride (Normal Saline) 1,000 mls @ 75 mls/hr IV ASDIRECTED JEFFREY Last Admin: 12/31/19 01:05 Dose: 75 mls/hr Labs: Laboratory Tests 12/31/19 12/31/19 12/31/19 Range/Units 00:35 00:46 00:46 WBC 13.8 H (5.0-10.0) 10^3/uL RBC 4.41 (4.00-5.50) 10^6/uL Hgb 14.5 (12.0-16.0) g/dL Hct 42.7 (37.0-47.0) % MCV 96.8 H (82.0-94.0) fL MCH 32.9 H (27.0-32.0) pg MCHC 34.0 (33.0-38.0) g/dL RDW Coeff of Zan 13.5 (11.0-15.0) % Plt Count 141 L (150-400) 10^3/uL Neut % (Auto) 84.6 (35-85) % Lymph % (Auto) 5.1 L (10-55) % [place] % (Auto) 9.9 (0-16) % Eos % (Auto) 0.3 (0-5) % Baso % (Auto) 0.1 (0-3) % Neut # (Auto) 11.65 H (1.80-7.00) 10^3/uL Lymph # (Auto) 0.70 L (1.00-4.80) 10^3/uL [place] # (Auto) 1.37 H (0.00-0.80) 10^3/uL Eos # (Auto) 0.04 (0.00-0.45) 10^3/uL Baso # (Auto) 0.01 10^3/uL Sodium 134 L (136-145) mEq/L Potassium 3.8 (3.5-5.0) mEq/L Chloride 96 L (98-106) mEq/L Carbon Dioxide 28 (21-32) mmol/L BUN 16 (7-18) mg/dL Creatinine 1.3 H (0.6-1.0) mg/dL Est Cr Clr Drug Dosing 27.60 mL/min Estimated GFR (MDRD) 39 L (>=60) mL/min Glucose 126 H D (75-99) mg/dL Lactic Acid 1.5 (0.4-2.0) mmol/L Calcium 9.7 (8.4-10.1) mg/dL Total Bilirubin 0.7 (0.0-1.0) mg/dL AST 24 (15-37) U/L ALT 19 (12-78) U/L Alkaline Phosphatase 85 (46-116) U/L Troponin I < 0.017 (0.00-0.06) ng/mL C-Reactive Protein < 0.2 L (0.2-0.8) mg/dL Total Protein 7.2 (6.4-8.2) g/dL Albumin 3.9 (3.4-5.0) g/dL Urine Color (YELLOW) Urine Appearance (CLEAR) Urine pH (4.5-8.0) Ur Specific [place] (1.003-1.020) Urine Protein (NEGATIVE) mg/dL Urine Glucose (UA) (NEGATIVE) mg/dL Urine Ketones (NEGATIVE) mg/dL Urine Occult Blood (NEGATIVE) Urine Nitrite (NEGATIVE) Urine Bilirubin (NEGATIVE) Urine Urobilinogen (0.2-1.0) EU/dL Ur Leukocyte Esterase (NEGATIVE) Urine RBC (0-5) /HPF Urine WBC (0-5) /HPF Ur Squamous Epith Cells (NOT SEEN) /HPF Urine Bacteria (NOT SEEN) /HPF 12/31/19 Range/Units 00:49 WBC (5.0-10.0) 10^3/uL RBC (4.00-5.50) 10^6/uL Hgb (12.0-16.0) g/dL Hct (37.0-47.0) % MCV (82.0-94.0) fL MCH (27.0-32.0) pg MCHC (33.0-38.0) g/dL RDW Coeff of Zan (11.0-15.0) % Plt Count (150-400) 10^3/uL Neut % (Auto) (35-85) % Lymph % (Auto) (10-55) % [place] % (Auto) (0-16) % Eos % (Auto) (0-5) % Baso % (Auto) (0-3) % Neut # (Auto) (1.80-7.00) 10^3/uL Lymph # (Auto) (1.00-4.80) 10^3/uL [place] # (Auto) (0.00-0.80) 10^3/uL Eos # (Auto) (0.00-0.45) 10^3/uL Baso # (Auto) 10^3/uL Sodium (136-145) mEq/L Potassium (3.5-5.0) mEq/L Chloride (98-106) mEq/L Carbon Dioxide (21-32) mmol/L BUN (7-18) mg/dL Creatinine (0.6-1.0) mg/dL Est Cr Clr Drug Dosing mL/min Estimated GFR (MDRD) (>=60) mL/min Glucose (75-99) mg/dL Lactic Acid (0.4-2.0) mmol/L Calcium (8.4-10.1) mg/dL Total Bilirubin (0.0-1.0) mg/dL AST (15-37) U/L ALT (12-78) U/L Alkaline Phosphatase (46-116) U/L Troponin I (0.00-0.06) ng/mL C-Reactive Protein (0.2-0.8) mg/dL Total Protein (6.4-8.2) g/dL Albumin (3.4-5.0) g/dL Urine Color Yellow (YELLOW) Urine Appearance Clear (CLEAR) Urine pH 8.0 (4.5-8.0) Ur Specific [place] 1.025 H (1.003-1.020) Urine Protein Negative (NEGATIVE) mg/dL Urine Glucose (UA) Negative (NEGATIVE) mg/dL Urine Ketones Negative (NEGATIVE) mg/dL Urine Occult Blood Trace-intact H (NEGATIVE) Urine Nitrite Negative (NEGATIVE) Urine Bilirubin Negative (NEGATIVE) Urine Urobilinogen 0.2 (0.2-1.0) EU/dL Ur Leukocyte Esterase Trace H (NEGATIVE) Urine RBC 0-5 (0-5) /HPF Urine WBC 0-5 (0-5) /HPF Ur Squamous Epith Cells Few H (NOT SEEN) /HPF Urine Bacteria Occasional H (NOT SEEN) /HPF Meds: Medications Generic Name Dose Route Start Last Admin Trade Name Freq PRN Reason Stop Dose Admin Sodium Chloride 1,000 mls @ 75 mls/hr 12/31/19 01:00 12/31/19 01:05 Normal Saline IV 75 mls/hr ASDIRECTED JEFFREY Administration Discontinued Medications Generic Name Dose Route Start Last Admin Trade Name Freq PRN Reason Stop Dose Admin Acetaminophen 650 mg 12/31/19 00:58 Tylenol PO 12/31/19 00:59 NOW ONE Albuterol/Ipratropium 3 ml 12/31/19 00:50 12/31/19 01:05 Duoneb 3.0-0.5 Mg/3 Ml NEB 12/31/19 00:51 3 ml ONETIME ONE Administration Azithromycin 500 mg 12/31/19 01:13 Zithromax PO 12/31/19 01:14 ONETIME ONE Ceftriaxone Sodium 2 gm 12/31/19 01:12 Rocephin IVPUSH 12/31/19 01:13 ONETIME ONE Departure - Departure Time of Disposition: 01:23 Disposition: Admitted As Inpatient 68 Condition: Good Clinical Impression: RLL pneumonia, Fever, SOB (shortness of breath) - Discharge Information *PRESCRIPTION DRUG MONITORING PROGRAM REVIEWED*: Not Applicable *COPY OF PRESCRIPTION DRUG MONITORING REPORT IN PATIENT JULIA: Not Applicable Referrals: Edna Koehler PA [Primary Care Provider] - Forms: ED Department Discharge Sepsis Event Note - Evaluation Sepsis Screening Result: Possible Sepsis Risk - Focused Exam Vital Signs: Vital Signs Temp Pulse Resp BP Pulse Ox 12/31/19 00:20 38.4 C H 94 20 148/73 H 99 Date Exam was Performed: 12/31/19 Time Exam was Performed: 01:19 - Problem List & Annotations (1) Fever SNOMED Code(s): 426416556 Code(s): R50.9 - FEVER, UNSPECIFIED Status: Acute Priority: Medium Current Visit: Yes Qualifiers: Fever type: unspecified Qualified Code(s): R50.9 - Fever, unspecified (2) RLL pneumonia SNOMED Code(s): 223542702 Code(s): J18.9 - PNEUMONIA, UNSPECIFIED ORGANISM Status: Acute Priority: High Current Visit: Yes Qualifiers: Pneumonia type: due to unspecified organism Qualified Code(s): J18.9 - Pneumonia, unspecified organism (3) SOB (shortness of breath) SNOMED Code(s): 120351598 Code(s): R06.02 - SHORTNESS OF BREATH Status: Acute Priority: High Current Visit: Yes - Problem List Review Problem List Initiated/Reviewed/Updated: Yes - My Orders Last 24 Hours: My Active Orders 12/31/19 00:30 CULTURE BLOOD [BC] Stat 12/31/19 00:35 CULTURE BLOOD [BC] Stat 12/31/19 00:43 Chest 1V Frontal [CR] Stat Blood Culture x2 Reflex Set [OM.PC] Stat 12/31/19 00:44 Isolation [COMM] Routine 12/31/19 00:50 RT Aerosol Therapy [RC] ASDIRECTED 12/31/19 01:00 Sodium Chloride 0.9% [Normal Saline] 1,000 ml IV ASDIRECTED - Assessment/Plan Admission H&P: Please use this note as an admission H&P Last 24 Hours: My Active Orders 12/31/19 00:30 CULTURE BLOOD [BC] Stat 12/31/19 00:35 CULTURE BLOOD [BC] Stat 12/31/19 00:43 Chest 1V Frontal [CR] Stat Blood Culture x2 Reflex Set [OM.PC] Stat 12/31/19 00:44 Isolation [COMM] Routine 12/31/19 00:50 RT Aerosol Therapy [RC] ASDIRECTED 12/31/19 01:00 Sodium Chloride 0.9% [Normal Saline] 1,000 ml IV ASDIRECTED Plan: as above
[2019-12-31] MEDS ORDERED: Azithromycin 500 MG in Sodium Chloride 0.9% 250 ML IV ONE (01:37)
[2019-12-31] MEDS ORDERED: ALENDRONATE 10 MG PO SCH (02:01)
[2019-12-31] MEDS ORDERED: Meclizine 12.5 MG Tab PO PRN (02:15)
[2019-12-31] MEDS: Enoxaparin 30 MG/0.3 ML Syringe SUBCUT SCH ×2 (02:35→19:33)
[2019-12-31] MEDS ORDERED: Vitamin B Complex Cap PO SCH (08:00)
[2019-12-31] MEDS ORDERED: Non-Formulary Medication 1 Each (Lutein [Lutein] 20 MG) PO SCH (08:00)
[2019-12-31] MEDS ORDERED: CALCIUM CARBONATE 600 MG PO SCH (08:00)
[2019-12-31] MEDS ORDERED: Vitamin E (dl-alpha-tocopherol acetate) 400 Unit Cap PO SCH (08:00)
[2019-12-31] MEDS ORDERED: Cholecalciferol (Vitamin D3) 25 MCG Tab PO SCH (08:00)
[2019-12-31] MEDS: Albuterol/Ipratropium 3.0-0.5 MG/3 ML Neb Soln NEB SCH ×4 (08:14→19:32)
[2019-12-31] MEDS: Aspirin 325 MG Tab.EC PO SCH ×2 (08:15→19:33)
[2019-12-31] MEDS: Calcium Carbonate 500 MG Tab.Chew PO SCH ×2 (08:15→19:33)
[2019-12-31] MEDS: Acetaminophen 325 MG Tab PO PRN ×3 (08:15→19:32)
[2019-12-31] MEDS: Sodium Chloride 0.9% 1,000 ML IV SCH ×2 (11:49→15:27)
--- NOTE | 2019-12-31 12:25 | PCM.PN ---
- General Info Date of Service: 12/31/19 Admission Dx/Problem (Free Text): RLL pneumonia, sob, fever and leukocytosis Functional Status: Reports: Tolerating Diet - Review of Systems General: Reports: Fever, Weakness HEENT: Reports: No Symptoms. Denies: Sinus Congestion, Sore Throat, Rhinitis Pulmonary: Reports: Cough, Wheezing. Denies: Shortness of Breath Cardiovascular: Reports: No Symptoms. Denies: Chest Pain Gastrointestinal: Reports: No Symptoms. Denies: Abdominal Pain, Nausea, Vomiting Genitourinary: Reports: No Symptoms Musculoskeletal: Reports: No Symptoms Skin: Reports: No Symptoms. Denies: Bruising, Rash Neurological: Reports: No Symptoms Psychiatric: Reports: No Symptoms - Patient Data Vitals - Most Recent: Last Vital Signs Temp 37.4 C 12/31/19 11:44 Pulse 78 12/31/19 11:44 Resp 16 12/31/19 11:44 BP 102/42 L 12/31/19 11:44 Pulse Ox 94 L 12/31/19 11:44 Weight - Most Recent: 57.425 kg Lab Results Last 24 Hours: Laboratory Results - last 24 hr 12/31/19 12/31/19 12/31/19 Range/Units 00:35 00:46 00:46 WBC 13.8 H (5.0-10.0) 10^3/uL RBC 4.41 (4.00-5.50) 10^6/uL Hgb 14.5 (12.0-16.0) g/dL Hct 42.7 (37.0-47.0) % MCV 96.8 H (82.0-94.0) fL MCH 32.9 H (27.0-32.0) pg MCHC 34.0 (33.0-38.0) g/dL RDW Coeff of Zan 13.5 (11.0-15.0) % Plt Count 141 L (150-400) 10^3/uL Neut % (Auto) 84.6 (35-85) % Lymph % (Auto) 5.1 L (10-55) % [place] % (Auto) 9.9 (0-16) % Eos % (Auto) 0.3 (0-5) % Baso % (Auto) 0.1 (0-3) % Neut # (Auto) 11.65 H (1.80-7.00) 10^3/uL Lymph # (Auto) 0.70 L (1.00-4.80) 10^3/uL [place] # (Auto) 1.37 H (0.00-0.80) 10^3/uL Eos # (Auto) 0.04 (0.00-0.45) 10^3/uL Baso # (Auto) 0.01 10^3/uL Sodium 134 L (136-145) mEq/L Potassium 3.8 (3.5-5.0) mEq/L Chloride 96 L (98-106) mEq/L Carbon Dioxide 28 (21-32) mmol/L BUN 16 (7-18) mg/dL Creatinine 1.3 H (0.6-1.0) mg/dL Est Cr Clr Drug Dosing 27.60 mL/min Estimated GFR (MDRD) 39 L (>=60) mL/min Glucose 126 H D (75-99) mg/dL Lactic Acid 1.5 (0.4-2.0) mmol/L Calcium 9.7 (8.4-10.1) mg/dL Magnesium (1.8-2.4) mg/dL Total Bilirubin 0.7 (0.0-1.0) mg/dL AST 24 (15-37) U/L ALT 19 (12-78) U/L Alkaline Phosphatase 85 (46-116) U/L Troponin I < 0.017 (0.00-0.06) ng/mL C-Reactive Protein < 0.2 L (0.2-0.8) mg/dL Total Protein 7.2 (6.4-8.2) g/dL Albumin 3.9 (3.4-5.0) g/dL Urine Color (YELLOW) Urine Appearance (CLEAR) Urine pH (4.5-8.0) Ur Specific [place] (1.003-1.020) Urine Protein (NEGATIVE) mg/dL Urine Glucose (UA) (NEGATIVE) mg/dL Urine Ketones (NEGATIVE) mg/dL Urine Occult Blood (NEGATIVE) Urine Nitrite (NEGATIVE) Urine Bilirubin (NEGATIVE) Urine Urobilinogen (0.2-1.0) EU/dL Ur Leukocyte Esterase (NEGATIVE) Urine RBC (0-5) /HPF Urine WBC (0-5) /HPF Ur Squamous Epith Cells (NOT SEEN) /HPF Urine Bacteria (NOT SEEN) /HPF 12/31/19 12/31/19 12/31/19 Range/Units 00:49 07:30 07:30 WBC 12.4 H (5.0-10.0) 10^3/uL RBC 3.89 L (4.00-5.50) 10^6/uL Hgb 12.7 (12.0-16.0) g/dL Hct 37.9 (37.0-47.0) % MCV 97.4 H (82.0-94.0) fL MCH 32.6 H (27.0-32.0) pg MCHC 33.5 (33.0-38.0) g/dL RDW Coeff of Zan 13.5 (11.0-15.0) % Plt Count 122 L (150-400) 10^3/uL Neut % (Auto) 84.3 (35-85) % Lymph % (Auto) 8.5 L (10-55) % [place] % (Auto) 7.0 (0-16) % Eos % (Auto) 0.1 (0-5) % Baso % (Auto) 0.1 (0-3) % Neut # (Auto) 10.41 H (1.80-7.00) 10^3/uL Lymph # (Auto) 1.05 (1.00-4.80) 10^3/uL [place] # (Auto) 0.87 H (0.00-0.80) 10^3/uL Eos # (Auto) 0.01 (0.00-0.45) 10^3/uL Baso # (Auto) 0.01 10^3/uL Sodium 134 L (136-145) mEq/L Potassium 3.8 (3.5-5.0) mEq/L Chloride 99 (98-106) mEq/L Carbon Dioxide 27 (21-32) mmol/L BUN 16 (7-18) mg/dL Creatinine 1.3 H (0.6-1.0) mg/dL Est Cr Clr Drug Dosing 27.60 mL/min Estimated GFR (MDRD) 39 L (>=60) mL/min Glucose 99 (75-99) mg/dL Lactic Acid (0.4-2.0) mmol/L Calcium 8.6 (8.4-10.1) mg/dL Magnesium 1.9 (1.8-2.4) mg/dL Total Bilirubin (0.0-1.0) mg/dL AST (15-37) U/L ALT (12-78) U/L Alkaline Phosphatase (46-116) U/L Troponin I (0.00-0.06) ng/mL C-Reactive Protein 1.2 H (0.2-0.8) mg/dL Total Protein (6.4-8.2) g/dL Albumin (3.4-5.0) g/dL Urine Color Yellow (YELLOW) Urine Appearance Clear (CLEAR) Urine pH 8.0 (4.5-8.0) Ur Specific [place] 1.025 H (1.003-1.020) Urine Protein Negative (NEGATIVE) mg/dL Urine Glucose (UA) Negative (NEGATIVE) mg/dL Urine Ketones Negative (NEGATIVE) mg/dL Urine Occult Blood Trace-intact H (NEGATIVE) Urine Nitrite Negative (NEGATIVE) Urine Bilirubin Negative (NEGATIVE) Urine Urobilinogen 0.2 (0.2-1.0) EU/dL Ur Leukocyte Esterase Trace H (NEGATIVE) Urine RBC 0-5 (0-5) /HPF Urine WBC 0-5 (0-5) /HPF Ur Squamous Epith Cells Few H (NOT SEEN) /HPF Urine Bacteria Occasional H (NOT SEEN) /HPF 12/31/19 Range/Units 07:30 WBC (5.0-10.0) 10^3/uL RBC (4.00-5.50) 10^6/uL Hgb (12.0-16.0) g/dL Hct (37.0-47.0) % MCV (82.0-94.0) fL MCH (27.0-32.0) pg MCHC (33.0-38.0) g/dL RDW Coeff of Zan (11.0-15.0) % Plt Count (150-400) 10^3/uL Neut % (Auto) (35-85) % Lymph % (Auto) (10-55) % [place] % (Auto) (0-16) % Eos % (Auto) (0-5) % Baso % (Auto) (0-3) % Neut # (Auto) (1.80-7.00) 10^3/uL Lymph # (Auto) (1.00-4.80) 10^3/uL [place] # (Auto) (0.00-0.80) 10^3/uL Eos # (Auto) (0.00-0.45) 10^3/uL Baso # (Auto) 10^3/uL Sodium (136-145) mEq/L Potassium (3.5-5.0) mEq/L Chloride (98-106) mEq/L Carbon Dioxide (21-32) mmol/L BUN (7-18) mg/dL Creatinine (0.6-1.0) mg/dL Est Cr Clr Drug Dosing mL/min Estimated GFR (MDRD) (>=60) mL/min Glucose (75-99) mg/dL Lactic Acid (0.4-2.0) mmol/L Calcium (8.4-10.1) mg/dL Magnesium (1.8-2.4) mg/dL Total Bilirubin (0.0-1.0) mg/dL AST (15-37) U/L ALT (12-78) U/L Alkaline Phosphatase (46-116) U/L Troponin I 0.019 (0.00-0.06) ng/mL C-Reactive Protein (0.2-0.8) mg/dL Total Protein (6.4-8.2) g/dL Albumin (3.4-5.0) g/dL Urine Color (YELLOW) Urine Appearance (CLEAR) Urine pH (4.5-8.0) Ur Specific [place] (1.003-1.020) Urine Protein (NEGATIVE) mg/dL Urine Glucose (UA) (NEGATIVE) mg/dL Urine Ketones (NEGATIVE) mg/dL Urine Occult Blood (NEGATIVE) Urine Nitrite (NEGATIVE) Urine Bilirubin (NEGATIVE) Urine Urobilinogen (0.2-1.0) EU/dL Ur Leukocyte Esterase (NEGATIVE) Urine RBC (0-5) /HPF Urine WBC (0-5) /HPF Ur Squamous Epith Cells (NOT SEEN) /HPF Urine Bacteria (NOT SEEN) /HPF Shravan Results Last 24 Hours: Microbiology 12/31/19 00:40 Influenza Type A Antigen Screen - Final Nasal, Unspecified NEGATIVE INFLUENZA A VIRUS AG REFERENCE RANGE: NEGATIVE Influenza Type B Antigen Screen - Final NEGATIVE INFLUENZA B VIRUS AG REFERENCE RANGE: NEGATIVE Med Orders - Current: Current Medications Acetaminophen (Tylenol) 650 mg PO Q4H PRN PRN Reason: Pain (Mild 1-3)/fever Last Admin: 12/31/19 11:49 Dose: 650 mg Albuterol/Ipratropium (Duoneb 3.0-0.5 Mg/3 Ml) 3 ml NEB QIDRT [facility] Last Admin: 12/31/19 11:49 Dose: 3 ml Aspirin (Ecotrin) 325 mg PO BID [facility] Last Admin: 12/31/19 08:15 Dose: 325 mg Atorvastatin Calcium (Lipitor) 20 mg PO BEDTIME [facility] Calcium Carbonate/Glycine (Tums) 500 mg PO BID [facility] Last Admin: 12/31/19 08:15 Dose: 500 mg Ceftriaxone Sodium (Rocephin) 1 gm IVPUSH Q24H [facility] Cholecalciferol (Vitamin D3) 125 mcg PO DAILY [facility] Last Admin: 12/31/19 08:15 Dose: 125 mcg Docusate Sodium (Colace) 100 mg PO BEDTIME [facility] Enoxaparin Sodium (Lovenox) 30 mg SUBCUT BEDTIME [facility] Last Admin: 12/31/19 02:35 Dose: 30 mg Sodium Chloride (Normal Saline) 1,000 mls @ 75 mls/hr IV ASDIRECTED [facility] Last Admin: 12/31/19 11:49 Dose: 75 mls/hr Azithromycin 500 mg/ Sodium (Chloride) 250 mls @ 250 mls/hr IV Q24H [facility] Magnesium Oxide (Magnesium Oxide) 250 mg PO DAILY [facility] Last Admin: 12/31/19 08:15 Dose: 250 mg Meclizine HCl (Antivert) 25 mg PO Q8H PRN PRN Reason: DIZZINESS Vitamin B Complex (Vitamin B Complex) 1 each PO DAILY [facility] Last Admin: 12/31/19 08:15 Dose: 1 each Vitamin E (Vitamin E) 400 units PO DAILY [facility] Last Admin: 12/31/19 08:15 Dose: 400 units Discontinued Medications Acetaminophen (Tylenol) 650 mg PO NOW ONE Stop: 12/31/19 00:59 Last Admin: 12/31/19 01:49 Dose: 650 mg Albuterol/Ipratropium (Duoneb 3.0-0.5 Mg/3 Ml) 3 ml NEB ONETIME ONE Stop: 12/31/19 00:51 Last Admin: 12/31/19 01:05 Dose: 3 ml Azithromycin (Zithromax) 500 mg PO ONETIME ONE Stop: 12/31/19 01:14 Last Admin: 12/31/19 02:28 Dose: Not Given Ceftriaxone Sodium (Rocephin) 2 gm IVPUSH ONETIME ONE Stop: 12/31/19 01:13 Last Admin: 12/31/19 01:49 Dose: 2 gm Sodium Chloride (Normal Saline) 1,000 mls @ 75 mls/hr IV ASDIRECTED [facility] Last Admin: 12/31/19 01:05 Dose: 75 mls/hr Azithromycin 500 mg/ Sodium (Chloride) 250 mls @ 250 mls/hr IV STAT ONE Stop: 12/31/19 02:36 Last Admin: 12/31/19 01:49 Dose: 250 mls/hr Non-Formulary Medication (Alendronate [Fosamax]) 10 mg PO Q7D [facility] Last Admin: 12/31/19 11:00 Dose: Not Given Non-Formulary Medication (Lutein [Lutein]) 20 mg PO DAILY [facility] Last Admin: 12/31/19 11:50 Dose: Not Given - Exam Quality Assessment: No: Supplemental Oxygen General: Alert, Oriented, Cooperative Neck: Supple, Trachea Midline Lungs: Normal Respiratory Effort, Rhonchi Cardiovascular: Regular Rate, Regular Rhythm GI/Abdominal Exam: Normal Bowel Sounds, Soft, Non-Tender Back Exam: Normal Inspection, Full Range of Motion Extremities: Normal Inspection, Normal Range of Motion, Non-Tender, No Pedal Edema, Normal Capillary Refill Peripheral Pulses: 2+: Radial (L) Skin: Warm, Dry, Intact Wound/Incisions: Healing Well Neurological: No New Focal Deficit Psy/Mental Status: Alert, Normal Affect, Normal Mood Sepsis Event Note - Evaluation Sepsis Screening Result: No Definite Risk - Focused Exam Vital Signs: Vital Signs Temp Pulse Resp BP Pulse Ox 12/31/19 11:44 37.4 C 78 16 102/42 L 94 L 12/31/19 09:36 37.2 C 12/31/19 08:00 38.0 C 76 18 107/47 L 95 12/31/19 04:00 37.2 C 18 92 L 12/31/19 03:00 36.7 C 12/31/19 02:01 38.7 C H 20 111/44 L 94 L 12/31/19 00:20 38.4 C H 94 20 148/73 H 99 Date Exam was Performed: 12/31/19 Time Exam was Performed: 12:19 - Problem List & Annotations (1) Fever SNOMED Code(s): 778162175 Code(s): R50.9 - FEVER, UNSPECIFIED Status: Acute Priority: Medium Current Visit: Yes Qualifiers: Fever type: unspecified Qualified Code(s): R50.9 - Fever, unspecified (2) RLL pneumonia SNOMED Code(s): 226062630 Code(s): J18.9 - PNEUMONIA, UNSPECIFIED ORGANISM Status: Acute Priority: High Current Visit: Yes Qualifiers: Pneumonia type: due to unspecified organism Qualified Code(s): J18.9 - Pneumonia, unspecified organism (3) SOB (shortness of breath) SNOMED Code(s): 502879258 Code(s): R06.02 - SHORTNESS OF BREATH Status: Acute Priority: High Current Visit: Yes - Problem List Review Problem List Initiated/Reviewed/Updated: Yes - My Orders Last 24 Hours: My Active Orders 12/31/19 00:30 CULTURE BLOOD [BC] Stat 12/31/19 00:35 CULTURE BLOOD [BC] Stat 12/31/19 00:43 Chest 1V Frontal [CR] Stat 12/31/19 00:50 RT Aerosol Therapy [RC] ASDIRECTED 12/31/19 01:29 Resuscitation Status Routine 12/31/19 02:01 Patient Status [ADT] Routine Cardiac Monitoring [RC] 0800,2000 Height and Weight [RC] .PRN Oxygen Therapy [RC] .PRN Pulse Oximetry [RC] .PRN RT Aerosol Therapy [RC] 0800,1200,1600,2000 Up With Assistance [RC] .PRN Vital Signs [RC] 0000,0400,0800,1200,1600,2000 Acetaminophen [Tylenol] 650 mg PO Q4H PRN Enoxaparin [Lovenox] 30 mg SUBCUT BEDTIME Sodium Chloride 0.9% [Normal Saline] 1,000 ml IV ASDIRECTED 12/31/19 02:15 Meclizine [Antivert] 25 mg PO Q8H PRN 12/31/19 02:40 Antiembolic Devices [RC] 1000,2200 YOVANY Hose [Antiembolic Hose] [OM.PC] Routine 12/31/19 08:00 Albuterol/Ipratropium [DuoNeb 3.0-0.5 MG/3 ML] 3 ml NEB QIDRT Aspirin [Ecotrin] 325 mg PO BID Calcium Carbonate [Tums] 500 mg PO BID Cholecalciferol (Vitamin D3) [Vitamin D3] 125 mcg PO DAILY Magnesium Oxide 250 mg PO DAILY Vitamin B Complex 1 each PO DAILY Vitamin E (dl, acetate) [Vitamin E] 400 units PO DAILY 12/31/19 20:00 Docusate Sodium [Colace] 100 mg PO BEDTIME atorvaSTATin [Lipitor] 20 mg PO BEDTIME 12/31/19 Breakfast 2 Gram Sodium Diet [DIET] 01/01/20 08:00 Azithromycin [Zithromax] 500 mg Sodium Chloride 0.9% [Normal Saline] 250 ml IV Q24H cefTRIAXone [Rocephin] 1 gm IVPUSH Q24H - Plan Plan:: 12/31/2019 1220 the opt is starting to feel better, still has a cough, has scattered rhonchi on the right, no cp or sob, her temp has been 99 through low 100, cxr was read by the radiologist and suggest granulomatis vs pneumonia. correlating pts sx with film and comparing to previous, I am still concerned for underling pneumonia, will continue current tx plan and will reassess tomorrow and possible DC home in am
[2019-12-31] MEDS ORDERED: Docusate Sodium 100 MG Cap PO SCH (20:00)
[2019-12-31] MEDS ORDERED: atorvaSTATin 20 MG Tab PO SCH (20:00)
[2019-12-31 20:05] VITALS: PULSE 94
[2019-12-31] MEDS ORDERED: Diltiazem 25 MG/5 ML SDV IVPUSH ONE (20:42)
[2019-12-31] MEDS ORDERED: Aspirin 81 MG Tab.Chew PO ONE (20:43)
[2019-12-31] MEDS ORDERED: Diltiazem 25 MG/5 ML SDV ONE (20:44)
[2019-12-31] MEDS ORDERED: Heparin Sodium/D5W 25,000 UNITS/500 ML BAG IV SCH (20:45)
[2019-12-31] MEDS ORDERED: Diltiazem 100 MG in Sodium Chloride 0.9% 100 ML IV SCH (20:45)
[2019-12-31] MEDS ORDERED: Heparin Sodium 10,000 Units/1 ML MDV IVPUSH ONE (20:45)
[2019-12-31] MEDS ORDERED: Heparin Sodium/D5W 500 ML ONE (20:46)
[2019-12-31] MEDS ORDERED: Diltiazem 100 MG AdvVial ONE (20:53)
[2019-12-31] MEDS ORDERED: Sodium Chloride 0.9% 100 ML ONE (20:54)
[2019-12-31] MEDS ORDERED: Heparin Sodium 10,000 Units/1 ML MDV ONE (21:15)
[2019-12-31 21:16] LABS: PTT,PARTIAL THROMBOPLSTIN TIME 35.2 SEC (23.2-32.3)
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
[2019-12-31 21:52] VITALS: BP 114/48
[2020-01-01] MEDS ORDERED: cefTRIAXone 1 GM Vial IVPUSH SCH ×2 (02:00→08:00)
[2020-01-01] MEDS ORDERED: Azithromycin 500 MG in Sodium Chloride 0.9% 250 ML IV SCH ×2 (02:00→08:00)
[2020-01-01] MEDS ORDERED: atorvaSTATin 20 MG Tab PO SCH (12:00)
== END 2019-12-31 22:15 | DRG 193 ==
LOC: CC.ED 00:19 → CC.MS 01:25 → UNDOADMIN 01:32 → UNDODISIN 22:15
PROVIDERS: ADMIT Nurse Practitioner; ATTEND Family Medicine
DX: J18.9 Pneumonia, unspecified organism (principal); I21.9 Acute myocardial infarction, unspecified; I24.9 Acute ischemic heart disease, unspecified; J44.0 Chronic obstructive pulmonary disease with (acute) lower respiratory infection; I48.91 Unspecified atrial fibrillation; E78.00 Pure hypercholesterolemia, unspecified; J44.9 Chronic obstructive pulmonary disease, unspecified; K59.09 Other constipation; K21.9 Gastro-esophageal reflux disease without esophagitis; M81.0 Age-related osteoporosis without current pathological fracture; Z90.49 Acquired absence of other specified parts of digestive tract; F17.200 Nicotine dependence, unspecified, uncomplicated; R42 Dizziness and giddiness; Z79.82 Long term (current) use of aspirin; Z79.899 Other long term (current) drug therapy; Z88.6 Allergy status to analgesic agent; Z88.5 Allergy status to narcotic agent; Z88.8 Allergy status to other drugs, medicaments and biological substances
CPT/HCPCS: 36415; 71045; 80053; 81001; 83605; 84484; 85025; 86140; 87040 ×2; 87804 ×2; 94640; J7030; 51702; 80048; 83735; 85610; 85730; 93005; 93010; 99285-25; A9270-GY; J0456; J0696; J1644; J1650; J3490; J7050; J7620-GY

== ENCOUNTER 2020-07-31 21:10 | Inpatient (IN) | payer MEDICARE, OTHER ==
[2020-07-31 21:55] LABS: PTT,PARTIAL THROMBOPLSTIN TIME 28.5 SEC (23.2-32.3)
[2020-07-31 21:58] LABS: CHLORIDE,CL 95 mEq/L (98-106); SODIUM,NA 131 mEq/L (136-145)
--- NOTE | 2020-07-31 23:11 | EDM.PDOC ---
ED HPI GENERAL MEDICAL PROBLEM - General Chief Complaint: Chest Pain Stated Complaint: chest pain Time Seen by Provider: 07/31/20 21:30 Source of Information: Reports: Patient History Limitations: Reports: No Limitations - History of Present Illness INITIAL COMMENTS - FREE TEXT/NARRATIVE: Nathalia is an 84 yo female who presents to the ED via [facility]. She states she has been having some bilateral chest pain the last few days which seemed to worsen tonight. States she has developed a cough with it as well. States it has been productive at times, admitting it is usually a yellowish phlegm. States she does have atrial fibrillation and last time her heart was racing she had similar symptoms as well. She denies any known COVID exposure. States she has been nauseated today and this evening when she layed down she didn't feel well and felt she needed to come into the ED. Location: Reports: Chest Chest Pain Score (Numeric/FACES): 3 - Related Data Allergies Allergy/AdvReac Type Severity Reaction Status Date / Time codeine Allergy Hives Verified 07/31/20 22:04 diazepam [From Valium] Allergy Hallucinati Verified 07/31/20 22:04 ons regadenoson [From Lexiscan] Allergy Syncope Verified 07/31/20 22:04 tramadol Allergy Difficulty Verified 07/31/20 22:04 Breathing Home Meds: Home Meds Cholecalciferol (Vitamin D3) [Vitamin D3] 5,000 unit PO DAILY 02/01/15 [History] Docusate Sodium [Colace] 100 mg PO BEDTIME 02/01/15 [History] Lutein 20 mg PO DAILY 02/01/15 [History] Magnesium 250 mg PO DAILY 02/01/15 [History] Vitamin B Complex [B Complex] 1 each PO DAILY 02/01/15 [History] Vitamin E 400 unit PO DAILY 02/01/15 [History] atorvaSTATin [Lipitor] 20 mg PO WITHLUNCH 02/01/15 [History] Meclizine HCl 25 mg PO Q8HR PRN 08/14/16 [History] Calcium Carbonate [Calcium] 600 mg PO BID 10/18/17 [History] Apixaban [Eliquis] 2.5 mg PO BID 07/31/20 [History] Metoprolol Succinate [Toprol XL] 25 mg PO WITHLUNCH 07/31/20 [History] Past Medical History HEENT History: Reports: Allergic Rhinitis Cardiovascular History: Reports: Afib, High Cholesterol Respiratory History: Reports: COPD Gastrointestinal History: Reports: Chronic Constipation, GERD Musculoskeletal History: Reports: Osteoporosis Neurological History: Reports: Vertigo - Infectious Disease History Infectious Disease History: Reports: None - Past Surgical History GI Surgical History: Reports: Cholecystectomy Female Surgical History: Reports: Other (See Below) Neurological Surgical History: Reports: Lumbar Spine Social & Family History - Family History Family Medical History: Noncontributory - Tobacco Use Tobacco Use Status *Q: Former Tobacco User Used Tobacco, but Quit: Yes Month/Year Tobacco Last Used: October 2019 - Caffeine Use Caffeine Use: Reports: Coffee - Recreational Drug Use Recreational Drug Use: No ED ROS GENERAL - Review of Systems Review Of Systems: See Below Constitutional: Reports: Malaise, Fatigue. Denies: Fever, Chills HEENT: Reports: No Symptoms Respiratory: Reports: Shortness of Breath, Pleuritic Chest Pain, Cough, Sputum. Denies: Wheezing Cardiovascular: Reports: Chest Pain, Lightheadedness. Denies: Palpitations, Syncope GI/Abdominal: Reports: No Symptoms : Reports: No Symptoms Musculoskeletal: Reports: No Symptoms Skin: Reports: No Symptoms Neurological: Reports: No Symptoms Psychiatric: Reports: No Symptoms ED EXAM, GENERAL - Physical Exam Exam: See Below Exam Limited By: No Limitations General Appearance: Alert, No Apparent Distress Ears: Normal External Exam, Normal Canal, Hearing Grossly Normal Nose: Normal Inspection, Normal Mucosa, No Blood Throat/Mouth: Normal Inspection, Normal Lips, Normal Oropharynx, Normal Voice, No Airway Compromise Head: Atraumatic, Normocephalic Neck: Normal Inspection, Supple. No: Lymphadenopathy (L), Lymphadenopathy (R) Respiratory/Chest: No Respiratory Distress, Crackles (bilateral midlung) Cardiovascular: No Edema, No Murmur, Irregularly Irregular GI/Abdominal: Normal Bowel Sounds, Soft, Non-Tender Extremities: Normal Inspection, No Pedal Edema Neurological: Alert, Oriented, Normal Cognition, No Motor/Sensory Deficits Psychiatric: Normal Affect, Normal Mood Skin Exam: Warm, Dry, Intact, Normal Color, No Rash #1 Interpretation EKG Date: 07/31/20 Rhythm: A-Fib Course - Vital Signs Last Recorded V/S: Last Vital Signs Temp 97 F 10/20/20 22:15 Pulse 124 H 07/31/20 22:15 Resp 24 H 07/31/20 22:15 BP 121/69 07/31/20 22:15 Pulse Ox 93 L 07/31/20 22:15 - Orders/Labs/Meds Orders: Active Orders 24 hr Category Date Time Status Chest 2V [CR] Stat Exams 07/31/20 21:23 Taken Medication Orders Sodium Chloride (Normal Saline) 1,000 mls @ 70 mls/hr IV ASDIRECTED [facility] Labs: Laboratory Tests 07/31/20 07/31/20 07/31/20 Range/Units 21:25 21:35 21:35 WBC 11.1 H (5.0-10.0) 10^3/uL RBC 3.62 L (4.00-5.50) 10^6/uL Hgb 11.7 L (12.0-16.0) g/dL Hct 34.3 L (37.0-47.0) % MCV 94.8 H (82.0-94.0) fL MCH 32.3 H (27.0-32.0) pg MCHC 34.1 (33.0-38.0) g/dL RDW Coeff of Zan 12.4 (11.0-15.0) % Plt Count 263 (150-400) 10^3/uL Neut % (Auto) 72.7 (35-85) % Lymph % (Auto) 8.7 L (10-55) % [place] % (Auto) 18.0 H (0-16) % Eos % (Auto) 0.4 (0-5) % Baso % (Auto) 0.2 (0-3) % Neut # (Auto) 8.10 H (1.80-7.00) 10^3/uL Lymph # (Auto) 0.97 L (1.00-4.80) 10^3/uL [place] # (Auto) 2.00 H (0.00-0.80) 10^3/uL Eos # (Auto) 0.05 (0.00-0.45) 10^3/uL Baso # (Auto) 0.02 10^3/uL PT 11.8 (9.7-12.3) SEC INR 1.17 (0.92-1.18) APTT 28.5 (23.2-32.3) SEC D-Dimer, Quantitative 0.80 H (0.00-0.50) Sodium (136-145) mEq/L Potassium (3.5-5.0) mEq/L Chloride (98-106) mEq/L Carbon Dioxide (21-32) mmol/L BUN (7-18) mg/dL Creatinine (0.6-1.0) mg/dL Est Cr Clr Drug Dosing Estimated GFR (MDRD) (>=60) mL/min Glucose (75-99) mg/dL Calcium (8.4-10.1) mg/dL Total Bilirubin (0.0-1.0) mg/dL AST (15-37) U/L ALT (12-78) U/L Alkaline Phosphatase (46-116) U/L Creatine Kinase (21-215) U/L Troponin I (0.00-0.06) ng/mL C-Reactive Protein (0.2-0.8) mg/dL Total Protein (6.4-8.2) g/dL Albumin (3.4-5.0) g/dL SARS CoV-2 RNA Rapid MABEL Negative (NEGATIVE) 07/31/20 Range/Units 21:35 WBC (5.0-10.0) 10^3/uL RBC (4.00-5.50) 10^6/uL Hgb (12.0-16.0) g/dL Hct (37.0-47.0) % MCV (82.0-94.0) fL MCH (27.0-32.0) pg MCHC (33.0-38.0) g/dL RDW Coeff of Zan (11.0-15.0) % Plt Count (150-400) 10^3/uL Neut % (Auto) (35-85) % Lymph % (Auto) (10-55) % [place] % (Auto) (0-16) % Eos % (Auto) (0-5) % Baso % (Auto) (0-3) % Neut # (Auto) (1.80-7.00) 10^3/uL Lymph # (Auto) (1.00-4.80) 10^3/uL [place] # (Auto) (0.00-0.80) 10^3/uL Eos # (Auto) (0.00-0.45) 10^3/uL Baso # (Auto) 10^3/uL PT (9.7-12.3) SEC INR (0.92-1.18) APTT (23.2-32.3) SEC D-Dimer, Quantitative (0.00-0.50) Sodium 131 L (136-145) mEq/L Potassium 3.8 (3.5-5.0) mEq/L Chloride 95 L (98-106) mEq/L Carbon Dioxide 28 (21-32) mmol/L BUN 18 (7-18) mg/dL Creatinine 1.5 H (0.6-1.0) mg/dL Est Cr Clr Drug Dosing TNP Estimated GFR (MDRD) 33 L (>=60) mL/min Glucose 118 H (75-99) mg/dL Calcium 9.7 (8.4-10.1) mg/dL Total Bilirubin 0.6 (0.0-1.0) mg/dL AST 20 (15-37) U/L ALT 12 (12-78) U/L Alkaline Phosphatase 72 (46-116) U/L Creatine Kinase 58 (21-215) U/L Troponin I < 0.017 (0.00-0.06) ng/mL C-Reactive Protein 0.7 (0.2-0.8) mg/dL Total Protein 6.3 L (6.4-8.2) g/dL Albumin 2.7 L (3.4-5.0) g/dL SARS CoV-2 RNA Rapid MABEL (NEGATIVE) Meds: Medications Generic Name Dose Route Start Last Admin Trade Name Freq PRN Reason Stop Dose Admin Sodium Chloride 1,000 mls @ 70 mls/hr 07/31/20 23:15 Normal Saline IV ASDIRECTED JEFFREY Departure - Departure Time of Disposition: 22:40 Disposition: Admitted As Inpatient 68 Clinical Impression: Pneumonia Qualifiers: Pneumonia type: due to unspecified organism Laterality: bilateral Lung location: unspecified part of lung Qualified Code(s): J18.9 - Pneumonia, unspecified organism Sepsis Event Note (ED) - Evaluation Sepsis Screening Result: No Definite Risk - Focused Exam Vital Signs: Vital Signs Temp Pulse Resp BP Pulse Ox 07/31/20 22:15 97 F 124 H 24 H 121/69 93 L 07/31/20 22:00 97.8 F 128 H 25 H 121/74 97 07/31/20 21:15 98.4 F 136 H 18 122/73 98 - Problem List & Annotations (1) Atrial fibrillation with rapid ventricular response SNOMED Code(s): 159534550760758 Code(s): I48.91 - UNSPECIFIED ATRIAL FIBRILLATION Status: Acute Priority: High Current Visit: No (2) Pneumonia SNOMED Code(s): 694148686 Code(s): J18.9 - PNEUMONIA, UNSPECIFIED ORGANISM Status: Acute Priority: High Current Visit: Yes Qualifiers: Pneumonia type: due to unspecified organism Laterality: bilateral Lung location: unspecified part of lung Qualified Code(s): J18.9 - Pneumonia, unspecified organism - Problem List Review Problem List Initiated/Reviewed/Updated: Yes - My Orders Last 24 Hours: My Active Orders 07/31/20 21:23 Chest 2V [CR] Stat - Assessment/Plan Admission H&P: Please use this note as an admission H&P Last 24 Hours: My Active Orders 07/31/20 21:23 Chest 2V [CR] Stat Plan: Will admit to Dr. Lundy's services under acute care. Chest x-ray did show bilateral infiltrates in the perihilar region. Will initiate IV antibiotics. Discussed code level into detail with Nathalia and she wishes to be DNR/DNI. Upon arrival to floor pulse had improved to 80. Patient is in agreement with admission at this time. Will closely monitor. Patient to be on continuous telemetry with atrial fibrillation.
[2020-07-31] MEDS ORDERED: Sodium Chloride 0.9% 1,000 ML IV SCH (23:15)
[2020-07-31] MEDS ORDERED: Ibuprofen 200 MG Tab PO PRN (23:28)
[2020-07-31] MEDS ORDERED: Acetaminophen 325 MG Tab PO PRN (23:28)
[2020-07-31] MEDS ORDERED: Sodium Chloride 0.9% 10 ML Syringe FLUSH PRN (23:28)
[2020-08-01] MEDS: cefTRIAXone 1 GM Vial IVPUSH SCH (00:03)
[2020-08-01] MEDS: Azithromycin 500 MG in Sodium Chloride 0.9% 250 ML IV SCH (00:08)
[2020-08-01] MEDS: Calcium Carbonate 500 MG Tab.Chew PO SCH ×2 (07:45→19:17)
[2020-08-01] MEDS: Cholecalciferol (Vitamin D3) 25 MCG Tab PO SCH (07:46)
[2020-08-01] MEDS: Apixaban 5 MG Tab PO SCH ×2 (07:46→19:17)
[2020-08-01] MEDS: Metoprolol Succinate 25 MG Tab.ER PO SCH (12:57)
[2020-08-01] MEDS: atorvaSTATin 20 MG Tab PO SCH (12:58)
[2020-08-01] MEDS: Docusate Sodium 100 MG Cap PO SCH (19:17)
--- NOTE | 2020-08-01 20:27 | PCM.PN ---
- General Info Date of Service: 08/01/20 Admission Dx/Problem (Free Text): Bilateral Pneumonia A Fib with RVR Functional Status: Reports: Pain Controlled, Tolerating Diet, Ambulating - Review of Systems General: Reports: Weakness, Fatigue, Malaise HEENT: Reports: No Symptoms Pulmonary: Reports: Shortness of Breath, Cough Cardiovascular: Denies: Chest Pain, Edema, Lightheadedness Gastrointestinal: Reports: No Symptoms Genitourinary: Reports: No Symptoms Musculoskeletal: Reports: No Symptoms Skin: Reports: No Symptoms Neurological: Reports: Weakness - Patient Data Vitals - Most Recent: Last Vital Signs Temp 97.9 F 08/01/20 16:00 Pulse 62 08/01/20 16:00 Resp 20 08/01/20 16:00 BP 121/49 L 08/01/20 16:00 Pulse Ox 96 08/01/20 16:00 Weight - Most Recent: 133 lb 3.2 oz I&O - Last 24 Hours: Intake & Output 08/01/20 08/01/20 08/01/20 06:59 14:59 22:59 Intake Total 1000 Balance 1000 Lab Results Last 24 Hours: Laboratory Results - last 24 hr 07/31/20 07/31/20 07/31/20 Range/Units 21:25 21:35 21:35 WBC 11.1 H (5.0-10.0) 10^3/uL RBC 3.62 L (4.00-5.50) 10^6/uL Hgb 11.7 L (12.0-16.0) g/dL Hct 34.3 L (37.0-47.0) % MCV 94.8 H (82.0-94.0) fL MCH 32.3 H (27.0-32.0) pg MCHC 34.1 (33.0-38.0) g/dL RDW Coeff of Zan 12.4 (11.0-15.0) % Plt Count 263 (150-400) 10^3/uL Neut % (Auto) 72.7 (35-85) % Lymph % (Auto) 8.7 L (10-55) % [place] % (Auto) 18.0 H (0-16) % Eos % (Auto) 0.4 (0-5) % Baso % (Auto) 0.2 (0-3) % Neut # (Auto) 8.10 H (1.80-7.00) 10^3/uL Lymph # (Auto) 0.97 L (1.00-4.80) 10^3/uL [place] # (Auto) 2.00 H (0.00-0.80) 10^3/uL Eos # (Auto) 0.05 (0.00-0.45) 10^3/uL Baso # (Auto) 0.02 10^3/uL PT 11.8 (9.7-12.3) SEC INR 1.17 (0.92-1.18) APTT 28.5 (23.2-32.3) SEC D-Dimer, Quantitative 0.80 H (0.00-0.50) Sodium (136-145) mEq/L Potassium (3.5-5.0) mEq/L Chloride (98-106) mEq/L Carbon Dioxide (21-32) mmol/L BUN (7-18) mg/dL Creatinine (0.6-1.0) mg/dL Est Cr Clr Drug Dosing Estimated GFR (MDRD) (>=60) mL/min Glucose (75-99) mg/dL Lactic Acid (0.4-2.0) mmol/L Calcium (8.4-10.1) mg/dL Total Bilirubin (0.0-1.0) mg/dL AST (15-37) U/L ALT (12-78) U/L Alkaline Phosphatase (46-116) U/L Creatine Kinase (21-215) U/L Troponin I (0.00-0.06) ng/mL C-Reactive Protein (0.2-0.8) mg/dL Total Protein (6.4-8.2) g/dL Albumin (3.4-5.0) g/dL SARS CoV-2 RNA Rapid MABEL Negative (NEGATIVE) 07/31/20 08/01/20 08/01/20 Range/Units 21:35 07:00 07:00 WBC 7.1 (5.0-10.0) 10^3/uL RBC 3.45 L (4.00-5.50) 10^6/uL Hgb 11.0 L (12.0-16.0) g/dL Hct 33.7 L (37.0-47.0) % MCV 97.7 H (82.0-94.0) fL MCH 31.9 (27.0-32.0) pg MCHC 32.6 L (33.0-38.0) g/dL RDW Coeff of Zan 12.6 (11.0-15.0) % Plt Count 249 (150-400) 10^3/uL Neut % (Auto) 67.5 (35-85) % Lymph % (Auto) 12.8 (10-55) % [place] % (Auto) 17.6 H (0-16) % Eos % (Auto) 1.8 (0-5) % Baso % (Auto) 0.3 (0-3) % Neut # (Auto) 4.80 (1.80-7.00) 10^3/uL Lymph # (Auto) 0.91 L (1.00-4.80) 10^3/uL [place] # (Auto) 1.25 H (0.00-0.80) 10^3/uL Eos # (Auto) 0.13 (0.00-0.45) 10^3/uL Baso # (Auto) 0.02 10^3/uL PT (9.7-12.3) SEC INR (0.92-1.18) APTT (23.2-32.3) SEC D-Dimer, Quantitative (0.00-0.50) Sodium 131 L 137 (136-145) mEq/L Potassium 3.8 4.0 (3.5-5.0) mEq/L Chloride 95 L 101 (98-106) mEq/L Carbon Dioxide 28 28 (21-32) mmol/L BUN 18 15 (7-18) mg/dL Creatinine 1.5 H 1.3 H (0.6-1.0) mg/dL Est Cr Clr Drug Dosing TNP 27.60 Estimated GFR (MDRD) 33 L 39 L (>=60) mL/min Glucose 118 H 86 D (75-99) mg/dL Lactic Acid (0.4-2.0) mmol/L Calcium 9.7 8.5 (8.4-10.1) mg/dL Total Bilirubin 0.6 (0.0-1.0) mg/dL AST 20 (15-37) U/L ALT 12 (12-78) U/L Alkaline Phosphatase 72 (46-116) U/L Creatine Kinase 58 (21-215) U/L Troponin I < 0.017 (0.00-0.06) ng/mL C-Reactive Protein 0.7 1.6 H (0.2-0.8) mg/dL Total Protein 6.3 L (6.4-8.2) g/dL Albumin 2.7 L (3.4-5.0) g/dL SARS CoV-2 RNA Rapid MABEL (NEGATIVE) 08/01/20 Range/Units 07:00 WBC (5.0-10.0) 10^3/uL RBC (4.00-5.50) 10^6/uL Hgb (12.0-16.0) g/dL Hct (37.0-47.0) % MCV (82.0-94.0) fL MCH (27.0-32.0) pg MCHC (33.0-38.0) g/dL RDW Coeff of Zan (11.0-15.0) % Plt Count (150-400) 10^3/uL Neut % (Auto) (35-85) % Lymph % (Auto) (10-55) % [place] % (Auto) (0-16) % Eos % (Auto) (0-5) % Baso % (Auto) (0-3) % Neut # (Auto) (1.80-7.00) 10^3/uL Lymph # (Auto) (1.00-4.80) 10^3/uL [place] # (Auto) (0.00-0.80) 10^3/uL Eos # (Auto) (0.00-0.45) 10^3/uL Baso # (Auto) 10^3/uL PT (9.7-12.3) SEC INR (0.92-1.18) APTT (23.2-32.3) SEC D-Dimer, Quantitative (0.00-0.50) Sodium (136-145) mEq/L Potassium (3.5-5.0) mEq/L Chloride (98-106) mEq/L Carbon Dioxide (21-32) mmol/L BUN (7-18) mg/dL Creatinine (0.6-1.0) mg/dL Est Cr Clr Drug Dosing Estimated GFR (MDRD) (>=60) mL/min Glucose (75-99) mg/dL Lactic Acid 0.8 (0.4-2.0) mmol/L Calcium (8.4-10.1) mg/dL Total Bilirubin (0.0-1.0) mg/dL AST (15-37) U/L ALT (12-78) U/L Alkaline Phosphatase (46-116) U/L Creatine Kinase (21-215) U/L Troponin I (0.00-0.06) ng/mL C-Reactive Protein (0.2-0.8) mg/dL Total Protein (6.4-8.2) g/dL Albumin (3.4-5.0) g/dL SARS CoV-2 RNA Rapid MABEL (NEGATIVE) Shravan Results Last 24 Hours: Microbiology 08/01/20 07:10 Influenza Type A Antigen Screen - Final Nasopharyngeal Swab NEGATIVE INFLUENZA A VIRUS AG REFERENCE RANGE: NEGATIVE Influenza Type B Antigen Screen - Final NEGATIVE INFLUENZA B VIRUS AG REFERENCE RANGE: NEGATIVE Med Orders - Current: Current Medications Acetaminophen (Tylenol) 650 mg PO Q4H PRN PRN Reason: Pain (Mild 1-3)/fever Apixaban (Eliquis) 2.5 mg PO BID [facility] Last Admin: 08/01/20 19:17 Dose: 2.5 mg Documented by: Atorvastatin Calcium (Lipitor) 20 mg PO WITHLUNCH [facility] Last Admin: 08/01/20 12:58 Dose: 20 mg Documented by: Calcium Carbonate/Glycine (Tums) 600 mg PO BID [facility] Last Admin: 08/01/20 19:17 Dose: 600 mg Documented by: Ceftriaxone Sodium (Rocephin) 1 gm IVPUSH Q24H [facility] Last Admin: 08/01/20 00:03 Dose: 1 gm Documented by: Cholecalciferol (Vitamin D3) 125 mcg PO DAILY [facility] Last Admin: 08/01/20 07:46 Dose: 125 mcg Documented by: Docusate Sodium (Colace) 100 mg PO BEDTIME [facility] Last Admin: 08/01/20 19:17 Dose: 100 mg Documented by: Azithromycin 500 mg/ Sodium (Chloride) 250 mls @ 250 mls/hr IV Q24H [facility] Last Admin: 08/01/20 00:08 Dose: 250 mls/hr Documented by: Ibuprofen (Motrin) 400 mg PO Q6H PRN PRN Reason: Pain (mild 1-3) Magnesium Oxide (Magnesium Oxide) 250 mg PO DAILY [facility] Last Admin: 08/01/20 07:45 Dose: 250 mg Documented by: Metoprolol Succinate (Toprol Xl) 25 mg PO WITHLUNCH [facility] Last Admin: 08/01/20 12:57 Dose: 25 mg Documented by: Sodium Chloride (Saline Flush) 10 ml FLUSH ASDIRECTED PRN PRN Reason: Keep Vein Open Discontinued Medications Sodium Chloride (Normal Saline) 1,000 mls @ 70 mls/hr IV ASDIRECTED [facility] Last Infusion: 08/01/20 19:16 Dose: Infused Documented by: - Exam General: Alert, Oriented HEENT: Mucous Membr. Moist/[place] Neck: Supple Lungs: Normal Respiratory Effort, Crackles (bases) Cardiovascular: Regular Rate, Regular Rhythm GI/Abdominal Exam: Normal Bowel Sounds, Soft, Non-Tender Extremities: Normal Inspection, No Pedal Edema Skin: Warm, Dry Neurological: No New Focal Deficit Sepsis Event Note - Evaluation Sepsis Screening Result: No Definite Risk - Focused Exam Vital Signs: Vital Signs Temp Pulse Pulse Resp BP BP Pulse Ox 08/01/20 16:00 97.9 F 62 20 121/49 L 96 08/01/20 12:57 68 103/57 L 08/01/20 12:00 98.1 F 60 18 102/57 L 95 - Problem List & Annotations (1) Pneumonia SNOMED Code(s): 601561930 Code(s): J18.9 - PNEUMONIA, UNSPECIFIED ORGANISM Status: Acute Priority: High Current Visit: Yes Qualifiers: Pneumonia type: due to unspecified organism Laterality: bilateral Lung location: unspecified part of lung Qualified Code(s): J18.9 - Pneumonia, unspecified organism (2) Atrial fibrillation with rapid ventricular response SNOMED Code(s): 575423181289441 Code(s): I48.91 - UNSPECIFIED ATRIAL FIBRILLATION Status: Acute Priority: High Current Visit: Yes - Problem List Review Problem List Initiated/Reviewed/Updated: Yes - Assessment Assessment:: Bilateral Pneumonia Atrial Fib with RVR - Plan Plan:: Patient is feeling better today. States "oxygen makes chest less tight". Rate is controlled in the 60s this am. Denies palpitations. Does continue to have tight cough, nonproductive. Oxygen sat 93-95% on room air. Lung sounds noted to have crackles in the bases. WBC stable at 7.1. CRP 1.6. Will continue with Zithromax and Rocephin IV. Daily labs. Reevaluate in am.
[2020-08-02] MEDS: Azithromycin 500 MG in Sodium Chloride 0.9% 250 ML IV SCH (00:09)
[2020-08-02] MEDS: cefTRIAXone 1 GM Vial IVPUSH SCH (00:09)
[2020-08-02] MEDS: Calcium Carbonate 500 MG Tab.Chew PO SCH ×2 (07:53→19:37)
[2020-08-02] MEDS: Apixaban 5 MG Tab PO SCH ×2 (07:54→19:37)
[2020-08-02] MEDS: Cholecalciferol (Vitamin D3) 25 MCG Tab PO SCH (07:54)
--- NOTE | 2020-08-02 09:00 | PCM.PN ---
- General Info Date of Service: 08/02/20 Admission Dx/Problem (Free Text): Bilateral Pneumonia A Fib with RVR Functional Status: Reports: Pain Controlled, Tolerating Diet, Ambulating - Review of Systems General: Reports: Malaise HEENT: Reports: No Symptoms Pulmonary: Reports: Cough. Denies: Shortness of Breath Cardiovascular: Denies: Chest Pain, Edema, Lightheadedness Gastrointestinal: Denies: Abdominal Pain, Nausea, Vomiting Genitourinary: Reports: No Symptoms Musculoskeletal: Reports: No Symptoms Skin: Reports: No Symptoms Neurological: Reports: Weakness - Patient Data Vitals - Most Recent: Last Vital Signs Temp 97.9 F 08/02/20 04:00 Pulse 56 L 08/02/20 04:00 Resp 20 08/02/20 04:00 BP 120/52 L 08/02/20 04:00 Pulse Ox 92 L 08/02/20 04:00 Weight - Most Recent: 133 lb 3.2 oz I&O - Last 24 Hours: Intake & Output 08/01/20 08/02/20 08/02/20 22:59 06:59 14:59 Intake Total 1000 Balance 1000 Lab Results Last 24 Hours: Laboratory Results - last 24 hr 08/02/20 08/02/20 Range/Units 05:11 05:11 WBC 6.9 (5.0-10.0) 10^3/uL RBC 3.56 L (4.00-5.50) 10^6/uL Hgb 11.4 L (12.0-16.0) g/dL Hct 35.2 L (37.0-47.0) % MCV 98.9 H (82.0-94.0) fL MCH 32.0 (27.0-32.0) pg MCHC 32.4 L (33.0-38.0) g/dL RDW Coeff of Zan 12.7 (11.0-15.0) % Plt Count 263 (150-400) 10^3/uL Neut % (Auto) 64.9 (35-85) % Lymph % (Auto) 15.0 (10-55) % [place] % (Auto) 17.8 H (0-16) % Eos % (Auto) 2.2 (0-5) % Baso % (Auto) 0.1 (0-3) % Neut # (Auto) 4.44 (1.80-7.00) 10^3/uL Lymph # (Auto) 1.03 (1.00-4.80) 10^3/uL [place] # (Auto) 1.22 H (0.00-0.80) 10^3/uL Eos # (Auto) 0.15 (0.00-0.45) 10^3/uL Baso # (Auto) 0.01 10^3/uL Sodium 138 (136-145) mEq/L Potassium 4.0 (3.5-5.0) mEq/L Chloride 103 (98-106) mEq/L Carbon Dioxide 28 (21-32) mmol/L BUN 13 (7-18) mg/dL Creatinine 1.3 H (0.6-1.0) mg/dL Est Cr Clr Drug Dosing 27.60 mL/min Estimated GFR (MDRD) 39 L (>=60) mL/min Glucose 88 (75-99) mg/dL Calcium 8.5 (8.4-10.1) mg/dL C-Reactive Protein 1.7 H (0.2-0.8) mg/dL Shravan Results Last 24 Hours: Microbiology 08/01/20 07:10 Influenza Type A Antigen Screen - Final Nasopharyngeal Swab NEGATIVE INFLUENZA A VIRUS AG REFERENCE RANGE: NEGATIVE Influenza Type B Antigen Screen - Final NEGATIVE INFLUENZA B VIRUS AG REFERENCE RANGE: NEGATIVE Med Orders - Current: Current Medications Acetaminophen (Tylenol) 650 mg PO Q4H PRN PRN Reason: Pain (Mild 1-3)/fever Apixaban (Eliquis) 2.5 mg PO BID [facility] Last Admin: 08/02/20 07:54 Dose: 2.5 mg Documented by: Atorvastatin Calcium (Lipitor) 20 mg PO WITHLUNCH [facility] Last Admin: 08/01/20 12:58 Dose: 20 mg Documented by: Calcium Carbonate/Glycine (Tums) 600 mg PO BID [facility] Last Admin: 08/02/20 07:53 Dose: 600 mg Documented by: Ceftriaxone Sodium (Rocephin) 1 gm IVPUSH Q24H [facility] Last Admin: 08/02/20 00:09 Dose: 1 gm Documented by: Cholecalciferol (Vitamin D3) 125 mcg PO DAILY [facility] Last Admin: 08/02/20 07:54 Dose: 125 mcg Documented by: Docusate Sodium (Colace) 100 mg PO BEDTIME [facility] Last Admin: 08/01/20 19:17 Dose: 100 mg Documented by: Azithromycin 500 mg/ Sodium (Chloride) 250 mls @ 250 mls/hr IV Q24H [facility] Last Admin: 08/02/20 00:09 Dose: 250 mls/hr Documented by: Ibuprofen (Motrin) 400 mg PO Q6H PRN PRN Reason: Pain (mild 1-3) Magnesium Oxide (Magnesium Oxide) 250 mg PO DAILY [facility] Last Admin: 08/02/20 07:54 Dose: 250 mg Documented by: Metoprolol Succinate (Toprol Xl) 25 mg PO WITHLUNCH [facility] Last Admin: 08/01/20 12:57 Dose: 25 mg Documented by: Sodium Chloride (Saline Flush) 10 ml FLUSH ASDIRECTED PRN PRN Reason: Keep Vein Open Discontinued Medications Sodium Chloride (Normal Saline) 1,000 mls @ 70 mls/hr IV ASDIRECTED [facility] Last Infusion: 08/01/20 19:16 Dose: Infused Documented by: - Exam General: Alert, Oriented HEENT: Mucous Membr. Moist/[place] Neck: Supple Lungs: Decreased Breath Sounds Cardiovascular: Regular Rate, Regular Rhythm GI/Abdominal Exam: Normal Bowel Sounds, Soft, Non-Tender Extremities: Normal Inspection, No Pedal Edema Skin: Warm, Dry Neurological: No New Focal Deficit Sepsis Event Note - Evaluation Sepsis Screening Result: No Definite Risk - Focused Exam Vital Signs: Vital Signs Temp Pulse Resp BP Pulse Ox 08/02/20 04:00 97.9 F 56 L 20 120/52 L 92 L 08/02/20 00:00 98.4 F 60 18 100/38 L 92 L - Problem List & Annotations (1) Pneumonia SNOMED Code(s): 929332001 Code(s): J18.9 - PNEUMONIA, UNSPECIFIED ORGANISM Status: Acute Priority: High Current Visit: Yes Qualifiers: Pneumonia type: due to unspecified organism Laterality: bilateral Lung location: unspecified part of lung Qualified Code(s): J18.9 - Pneumonia, unspecified organism (2) Atrial fibrillation with rapid ventricular response SNOMED Code(s): 274813417508875 Code(s): I48.91 - UNSPECIFIED ATRIAL FIBRILLATION Status: Acute Priority: High Current Visit: Yes - Problem List Review Problem List Initiated/Reviewed/Updated: Yes - Assessment Assessment:: Bilateral Pneumonia Atrial Fib with RVR - Plan Plan:: Patient is feeling better today. States "oxygen makes chest less tight". Rate is controlled in the 60s this am. Denies palpitations. Does continue to have tight cough, nonproductive. Oxygen sat 93-95% on room air. Lung sounds noted to have crackles in the bases. WBC stable at 7.1. CRP 1.6. Will continue with Zithromax and Rocephin IV. Daily labs. Reevaluate in am. 08-02-2020 Patient stable, admits to general malaise. Denies shortness of breath. Cough infrequent but "question if loosening up in chest". Nonproductive. Maintaining oxygen sats on room air. Afebrile. WBC remains normal today at 6.9. CRP 1.7. Chest xray repeated, continues to show infiltrates. Continue with IV Zithromax and Rocephin. Possible discharge home in am.
[2020-08-02] MEDS: Metoprolol Succinate 25 MG Tab.ER PO SCH (12:37)
[2020-08-02] MEDS: atorvaSTATin 20 MG Tab PO SCH (12:37)
[2020-08-02] MEDS: Docusate Sodium 100 MG Cap PO SCH (19:36)
[2020-08-02] MEDS ORDERED: Azithromycin 500 MG in Sodium Chloride 0.9% 250 ML IV SCH (20:00)
[2020-08-03] MEDS: cefTRIAXone 1 GM Vial IVPUSH SCH (00:03)
[2020-08-03] MEDS: Calcium Carbonate 500 MG Tab.Chew PO SCH (07:47)
[2020-08-03] MEDS: Cholecalciferol (Vitamin D3) 25 MCG Tab PO SCH (07:47)
[2020-08-03] MEDS: Apixaban 5 MG Tab PO SCH (07:48)
[2020-08-03 07:50] VITALS: BP 134/64; PULSE 56
--- NOTE | 2020-08-03 21:57 | PCM.DCSUM1 ---
Discharge Summary - Hospital Course Free Text/Narrative:: Nathalia is an 84 year old female who presented to the ER per EMS with complaints of bilateral chest discomfort for the last 3 days. Had developed a cough, yellowish production at times. Had felt like her heart was racing. No known COVID exposure. Mild nausea, just not feeling well. WBC 11.1. CRP 0.7. Covid negative. D-dimer 0.8. Electrolytes show normal potassium, sodium low at 131. Chest xray showed bilateral infiltrates. Admitted to inpatient for pneumonia. IV antibiotics of Rocephin and Zithromax ordered. Diagnosis: Stroke: No Modified [place] Scale: No Symptoms at All Modified [place] Scale Score: 0 - Discharge Data Discharge Date: 08/03/20 Discharge Disposition: Home, Self-Care 01 Condition: Fair - Referral to Home Health Primary Care Physician: JAZMINE Castanon - Discharge Diagnosis/Problem(s) (1) Pneumonia SNOMED Code(s): 936921995 ICD Code: J18.9 - PNEUMONIA, UNSPECIFIED ORGANISM Status: Acute Priority: High Qualifiers: Pneumonia type: due to unspecified organism Laterality: bilateral Lung location: unspecified part of lung Qualified Code(s): J18.9 - Pneumonia, unspecified organism (2) Atrial fibrillation with rapid ventricular response SNOMED Code(s): 175110325968849 ICD Code: I48.91 - UNSPECIFIED ATRIAL FIBRILLATION Status: Acute Priority: High - Patient Summary/Data Complications: none Hospital Course: Patient is doing well. Feeling less chest discomfort. No palpitations. Is ambulating without concern. Oxygen sats have remained above 90% on room air. Lung sounds are clear. Labs are stable. WBC is 7.3 today. CRP did peak at 1.3. Creatinine down to 1.2. Sodium stable at 137. will discharge home on Levaquin daily. Follow up with myself in 10 days in for recheck. - Patient Instructions Diet: Usual Diet as Tolerated Activity: As Tolerated - Discharge Plan *PRESCRIPTION DRUG MONITORING PROGRAM REVIEWED*: No *COPY OF PRESCRIPTION DRUG MONITORING REPORT IN PATIENT JULIA: No Prescriptions/Med Rec: Levofloxacin [Levaquin] 500 mg PO DAILY #7 tablet Home Medications: Home Meds Cholecalciferol (Vitamin D3) [Vitamin D3] 5,000 unit PO DAILY 02/01/15 [History] Docusate Sodium [Colace] 100 mg PO BEDTIME 02/01/15 [History] Lutein 20 mg PO DAILY 02/01/15 [History] Magnesium 250 mg PO DAILY 02/01/15 [History] Vitamin B Complex [B Complex] 1 each PO DAILY 02/01/15 [History] Vitamin E 400 unit PO DAILY 02/01/15 [History] atorvaSTATin [Lipitor] 20 mg PO WITHLUNCH 02/01/15 [History] Meclizine HCl 25 mg PO Q8HR PRN 08/14/16 [History] Calcium Carbonate [Calcium] 600 mg PO BID 10/18/17 [History] Apixaban [Eliquis] 2.5 mg PO BID 07/31/20 [History] Metoprolol Succinate [Toprol XL] 25 mg PO WITHLUNCH 07/31/20 [History] Levofloxacin [Levaquin] 500 mg PO DAILY #7 tablet 08/03/20 [Rx] Forms: ED Department Discharge Referrals: Edna Koehler PA [Primary Care Provider] - (Hospital follow up in 10 days with [place] in [place]) - Discharge Summary/Plan Comment DC Time >30 min.: No - General Info Date of Service: 08/05/20 Admission Dx/Problem (Free Text: Bilateral Pneumonia A Fib with RVR Functional Status: Reports: Pain Controlled, Tolerating Diet, Ambulating - Review of Systems General: Reports: Malaise HEENT: Reports: Rhinitis Pulmonary: Reports: Cough. Denies: Shortness of Breath Cardiovascular: Denies: Chest Pain, Edema, Lightheadedness Gastrointestinal: Denies: Abdominal Pain, Nausea, Vomiting Genitourinary: Reports: No Symptoms Musculoskeletal: Reports: No Symptoms Skin: Reports: No Symptoms Neurological: Reports: No Symptoms Psychiatric: Reports: No Symptoms - Patient Data Vitals - Most Recent: Last Vital Signs Temp 97.6 F 08/03/20 07:48 Pulse 56 L 08/03/20 07:48 Resp 18 08/03/20 07:48 BP 134/64 08/03/20 07:48 Pulse Ox 95 08/03/20 07:48 Weight - Most Recent: 133 lb 3.2 oz Lab Results - Last 24 hrs: Laboratory Results - last 24 hr 08/03/20 08/03/20 Range/Units 07:00 07:00 WBC 7.3 (5.0-10.0) 10^3/uL RBC 3.61 L (4.00-5.50) 10^6/uL Hgb 11.5 L (12.0-16.0) g/dL Hct 35.4 L (37.0-47.0) % MCV 98.1 H (82.0-94.0) fL MCH 31.9 (27.0-32.0) pg MCHC 32.5 L (33.0-38.0) g/dL RDW Coeff of Zan 12.4 (11.0-15.0) % Plt Count 259 (150-400) 10^3/uL Add Manual Diff Yes Neutrophils % (Manual) 72 (35-85) % Band Neutrophils % 2 (0-5) % Lymphocytes % (Manual) 18 L (21-55) % Monocytes % (Manual) 6 (2-12) % Eosinophils % (Manual) 2 (0-5) % Absolute Neutrophils 5.40 (1.80-7.00) 10^3/uL Lymphocytes # (Manual) 1.31 (1.00-4.80) 10^3/uL Monocytes # (Manual) 0.44 (0.00-0.80) 10^3/uL Eosinophils # (Manual) 0.15 (0.00-0.45) 10^3/uL Sodium 137 (136-145) mEq/L Potassium 3.9 (3.5-5.0) mEq/L Chloride 102 (98-106) mEq/L Carbon Dioxide 28 (21-32) mmol/L BUN 13 (7-18) mg/dL Creatinine 1.2 H (0.6-1.0) mg/dL Est Cr Clr Drug Dosing 29.90 mL/min Estimated GFR (MDRD) 43 L (>=60) mL/min Glucose 88 (75-99) mg/dL Calcium 8.4 (8.4-10.1) mg/dL C-Reactive Protein 1.3 H (0.2-0.8) mg/dL Med Orders - Current: Current Medications Discontinued Medications Acetaminophen (Tylenol) 650 mg PO Q4H PRN PRN Reason: Pain (Mild 1-3)/fever Apixaban (Eliquis) 2.5 mg PO BID [facility] Last Admin: 08/03/20 07:48 Dose: 2.5 mg Documented by: Atorvastatin Calcium (Lipitor) 20 mg PO WITHLUNCH [facility] Last Admin: 08/02/20 12:37 Dose: 20 mg Documented by: Calcium Carbonate/Glycine (Tums) 600 mg PO BID [facility] Last Admin: 08/03/20 07:47 Dose: 600 mg Documented by: Ceftriaxone Sodium (Rocephin) 1 gm IVPUSH Q24H [facility] Last Admin: 08/03/20 00:03 Dose: 1 gm Documented by: Cholecalciferol (Vitamin D3) 125 mcg PO DAILY [facility] Last Admin: 08/03/20 07:47 Dose: 125 mcg Documented by: Docusate Sodium (Colace) 100 mg PO BEDTIME [facility] Last Admin: 08/02/20 19:36 Dose: 100 mg Documented by: Sodium Chloride (Normal Saline) 1,000 mls @ 70 mls/hr IV ASDIRECTED [facility] Last Infusion: 08/01/20 19:16 Dose: Infused Documented by: Azithromycin 500 mg/ Sodium (Chloride) 250 mls @ 250 mls/hr IV Q24H [facility] Last Admin: 08/02/20 00:09 Dose: 250 mls/hr Documented by: Azithromycin 500 mg/ Sodium (Chloride) 250 mls @ 250 mls/hr IV DAILY@1999 [facility] Last Admin: 08/02/20 19:38 Dose: 250 mls/hr Documented by: Ibuprofen (Motrin) 400 mg PO Q6H PRN PRN Reason: Pain (mild 1-3) Magnesium Oxide (Magnesium Oxide) 250 mg PO DAILY [facility] Last Admin: 08/03/20 07:48 Dose: 250 mg Documented by: Metoprolol Succinate (Toprol Xl) 25 mg PO WITHLUNCH [facility] Last Admin: 08/02/20 12:37 Dose: 25 mg Documented by: Sodium Chloride (Saline Flush) 10 ml FLUSH ASDIRECTED PRN PRN Reason: Keep Vein Open - Exam General: Reports: Alert, Oriented HEENT: Reports: Mucous Membr. Moist/[place] Neck: Reports: Supple Lungs: Reports: Clear to Auscultation, Normal Respiratory Effort Cardiovascular: Reports: Regular Rate, Regular Rhythm GI/Abdominal Exam: Normal Bowel Sounds, Soft, Non-Tender Extremities: Normal Inspection, No Pedal Edema Skin: Reports: Warm, Dry Neurological: Reports: No New Focal Deficit
== END 2020-08-03 12:30 | disposition home or self-care (01) | DRG 195 ==
LOC: CC.ED 21:10 → CC.MS 22:40 → UNDOADMIN 22:40 → CC.MS 22:58 → UNDOADMIN 08-01 00:38 → CC.MS 08-01 00:38
PROVIDERS: ADMIT Physician Assistant Medical; ATTEND Family Medicine
DX: J18.9 Pneumonia, unspecified organism (principal); I48.91 Unspecified atrial fibrillation; J30.9 Allergic rhinitis, unspecified; J44.9 Chronic obstructive pulmonary disease, unspecified; K59.09 Other constipation; K21.9 Gastro-esophageal reflux disease without esophagitis; R42 Dizziness and giddiness; Z20.828 Contact with and (suspected) exposure to other viral communicable diseases; M81.0 Age-related osteoporosis without current pathological fracture; Z66 Do not resuscitate; I10 Essential (primary) hypertension; E78.00 Pure hypercholesterolemia, unspecified; Z88.5 Allergy status to narcotic agent; Z90.49 Acquired absence of other specified parts of digestive tract; Z88.8 Allergy status to other drugs, medicaments and biological substances; Z79.01 Long term (current) use of anticoagulants; Z99.81 Dependence on supplemental oxygen; Z87.891 Personal history of nicotine dependence; Z79.899 Other long term (current) drug therapy
CPT/HCPCS: 36415; 71046; 80048; 80053; 82550; 83605; 84484; 85025; 85379; 85610; 85730; 86140; 87804; 93005; 93010; 99285-25; A9270-GY; J0456; J0696; J7030; J7050; U0002

== ENCOUNTER 2020-09-06 10:40 | Emergency (ER) | payer MEDICARE, OTHER ==
[2020-09-06 11:17] LABS: CHLORIDE,CL 100 mEq/L (98-106); SODIUM,NA 135 mEq/L (136-145)
--- NOTE | 2020-09-06 11:29 | EDM.PDOC ---
ED HPI GENERAL MEDICAL PROBLEM - General Chief Complaint: Syncope Stated Complaint: syncope Time Seen by Provider: 09/06/20 11:10 Source of Information: Reports: Patient, EMS History Limitations: Reports: No Limitations - History of Present Illness INITIAL COMMENTS - FREE TEXT/NARRATIVE: Nathalia is an 84 year old female who presents to ER per EMS after a syncopal episode and fall. She had been up and making her breakfast, was enroute back to her chair to eat when noted "my ears closing off and knew I was going to pass out so I hollered to my ". Did fall to floor, was "out for a bit". Unsure of time of loss of consciousness. States this has happened x2 in the past and have not figured out why. Denies any chest pain, shortness of breath or nausea. Has mild headache. No longer feels dizzy or lightheaded. Does complain of pain to her right ribs and right ankle. States has increased discomfort with weight bearing. Denies covid exposure. Does have a history of dizziness, takes Meclizine. Took a tab at 0700 today. patient has worn holter monitor in past due to syncope. Onset: Today, Sudden Duration: Minutes:, Improving Location: Reports: Head, Chest, Lower Extremity, Right Quality: Reports: Ache Severity: Mild Improves with: Reports: Rest Worsens with: Reports: Movement Context: Reports: Other (fall) Associated Symptoms: Reports: Headaches, Syncope. Denies: Chest Pain, Cough, Fever/Chills, Loss of Appetite, Nausea/Vomiting, Shortness of Breath, Weakness Right Lower Trunk Pain Score (Numeric/FACES): 8 Right Ankle Pain Score (Numeric/FACES): 5 - Related Data Allergies Allergy/AdvReac Type Severity Reaction Status Date / Time codeine Allergy Hives Verified 07/31/20 22:04 diazepam [From Valium] Allergy Hallucinati Verified 07/31/20 22:04 ons regadenoson [From Lexiscan] Allergy Syncope Verified 07/31/20 22:04 tramadol Allergy Difficulty Verified 07/31/20 22:04 Breathing Home Meds: Home Meds Cholecalciferol (Vitamin D3) [Vitamin D3] 5,000 unit PO DAILY 02/01/15 [History] Docusate Sodium [Colace] 100 mg PO BEDTIME 02/01/15 [History] Lutein 20 mg PO DAILY 02/01/15 [History] Magnesium 250 mg PO DAILY 02/01/15 [History] Vitamin B Complex [B Complex] 1 each PO DAILY 02/01/15 [History] Vitamin E 400 unit PO DAILY 02/01/15 [History] atorvaSTATin [Lipitor] 20 mg PO WITHLUNCH 02/01/15 [History] Meclizine HCl 25 mg PO Q8HR PRN 08/14/16 [History] Calcium Carbonate [Calcium] 600 mg PO BID 10/18/17 [History] Apixaban [Eliquis] 2.5 mg PO BID 07/31/20 [History] Metoprolol Succinate [Toprol XL] 25 mg PO WITHLUNCH 07/31/20 [History] Levofloxacin [Levaquin] 500 mg PO DAILY #7 tablet 08/03/20 [Rx] Past Medical History HEENT History: Reports: Allergic Rhinitis Cardiovascular History: Reports: Afib, High Cholesterol Respiratory History: Reports: COPD Gastrointestinal History: Reports: Chronic Constipation, GERD Musculoskeletal History: Reports: Osteoporosis Neurological History: Reports: Vertigo - Infectious Disease History Infectious Disease History: Reports: None - Past Surgical History GI Surgical History: Reports: Cholecystectomy Female Surgical History: Reports: Other (See Below) Other Female Surgeries/Procedures: BLADDER SX Neurological Surgical History: Reports: Lumbar Spine Musculoskeletal Surgical History: Reports: Other (See Below) Other Musculoskeletal Surgeries/Procedures:: SPINE SX 2011 Social & Family History - Family History Family Medical History: No Pertinent Family History - Tobacco Use Tobacco Use Status *Q: Former Tobacco User - Caffeine Use Caffeine Use: Reports: Coffee - Recreational Drug Use Recreational Drug Use: No ED ROS GENERAL - Review of Systems Review Of Systems: See Below Constitutional: Reports: Malaise. Denies: Fever, Chills, Weakness, Fatigue, Decreased Appetite HEENT: Reports: Vertigo. Denies: Ear Pain, Rhinitis, Sinus Problem, Throat Pain Respiratory: Reports: Shortness of Breath (states has not fully recovered from recent occurrence of pneumonia) Cardiovascular: Reports: Lightheadedness. Denies: Chest Pain, Edema Endocrine: Reports: Fatigue GI/Abdominal: Denies: Abdominal Pain, Nausea, Vomiting : Reports: No Symptoms Musculoskeletal: Reports: Joint Pain (right ankle pain) Skin: Reports: No Symptoms Neurological: Reports: Syncope, Weakness. Denies: Confusion Psychiatric: Reports: No Symptoms - Physical Exam Exam: See Below Exam Limited By: No Limitations General Appearance: Alert, WD/WN, No Apparent Distress Eye Exam: Bilateral Eye: EOMI, PERRL Ears: Normal External Exam, Normal TMs Nose: Normal Inspection, Normal Mucosa, No Blood Throat/Mouth: Normal Inspection, Normal Oropharynx Head Exam: Normocephalic Neck: Normal Inspection, Supple, Non-Tender Respiratory/Chest: No Respiratory Distress, Lungs Clear, Normal Breath Sounds, Other (tender to right chest wall) Cardiovascular: Regular Rate, Rhythm GI/Abdominal: Normal Bowel Sounds, Soft, Non-Tender Neuro Exam (Abbreviated): Alert, Oriented, CN II-XII Intact, Normal Cognition, Normal Reflexes, No Motor/Sensory Deficits Extremities: Normal Inspection, No Pedal Edema, Limited Range of Motion (right ankle, no swelling, bruising or deformity noted.) Skin Exam: Warm, Dry Course - Vital Signs Last Recorded V/S: Last Vital Signs Temp 98.5 F 09/06/20 10:48 Pulse 65 09/06/20 12:32 Resp 18 09/06/20 12:32 BP 160/60 H 09/06/20 12:32 Pulse Ox 95 09/06/20 12:32 - Orders/Labs/Meds Orders: Active Orders 24 hr Category Date Time Status Ankle Min 3V Rt [CR] Stat Exams 09/06/20 10:50 Taken Head wo Cont [CT] Stat Exams 09/06/20 11:19 Taken Ribs 2V w Chest Rt [CR] Stat Exams 09/06/20 10:50 Taken EKG 12 Lead [EK] Stat Ther 09/06/20 10:49 Ordered Labs: Laboratory Tests 09/06/20 09/06/20 09/06/20 Range/Units 10:49 10:49 10:49 WBC 8.7 (5.0-10.0) 10^3/uL RBC 4.30 (4.00-5.50) 10^6/uL Hgb 13.8 (12.0-16.0) g/dL Hct 41.5 (37.0-47.0) % MCV 96.5 H (82.0-94.0) fL MCH 32.1 H (27.0-32.0) pg MCHC 33.3 (33.0-38.0) g/dL RDW Coeff of Zan 12.9 (11.0-15.0) % Plt Count 240 (150-400) 10^3/uL Neut % (Auto) 72.5 (35-85) % Lymph % (Auto) 9.9 L (10-55) % [place] % (Auto) 16.0 (0-16) % Eos % (Auto) 1.4 (0-5) % Baso % (Auto) 0.2 (0-3) % Neut # (Auto) 6.33 (1.80-7.00) 10^3/uL Lymph # (Auto) 0.86 L (1.00-4.80) 10^3/uL [place] # (Auto) 1.40 H (0.00-0.80) 10^3/uL Eos # (Auto) 0.12 (0.00-0.45) 10^3/uL Baso # (Auto) 0.02 10^3/uL D-Dimer, Quantitative 3.85 H (0.00-0.50) Sodium (136-145) mEq/L Potassium (3.5-5.0) mEq/L Chloride (98-106) mEq/L Carbon Dioxide (21-32) mmol/L BUN (7-18) mg/dL Creatinine (0.6-1.0) mg/dL Est Cr Clr Drug Dosing mL/min Estimated GFR (MDRD) (>=60) mL/min Glucose (75-99) mg/dL Calcium (8.4-10.1) mg/dL Total Bilirubin (0.0-1.0) mg/dL AST (15-37) U/L ALT (12-78) U/L Alkaline Phosphatase (46-116) U/L Lactate Dehydrogenase (100-190) U/L Creatine Kinase (21-215) U/L Troponin I (0.00-0.06) ng/mL C-Reactive Protein (0.2-0.8) mg/dL Total Protein (6.4-8.2) g/dL Albumin (3.4-5.0) g/dL Urine Color Yellow (YELLOW) Urine Appearance Clear (CLEAR) Urine pH 8.5 H (4.5-8.0) Ur Specific [place] 1.020 (1.003-1.020) Urine Protein Negative (NEGATIVE) mg/dL Urine Glucose (UA) Negative (NEGATIVE) mg/dL Urine Ketones Negative (NEGATIVE) mg/dL Urine Occult Blood Trace-intact H (NEGATIVE) Urine Nitrite Negative (NEGATIVE) Urine Bilirubin Negative (NEGATIVE) Urine Urobilinogen 0.2 (0.2-1.0) EU/dL Ur Leukocyte Esterase Trace H (NEGATIVE) Urine RBC 0-5 (0-5) /HPF Urine WBC 0-5 (0-5) /HPF Ur Epithelial Cells Occasional H (NOT SEEN) /HPF Urine Bacteria Occasional H (NOT SEEN) /HPF SARS CoV-2 RNA Rapid MABEL (NEGATIVE) 09/06/20 09/06/20 Range/Units 10:49 11:17 WBC (5.0-10.0) 10^3/uL RBC (4.00-5.50) 10^6/uL Hgb (12.0-16.0) g/dL Hct (37.0-47.0) % MCV (82.0-94.0) fL MCH (27.0-32.0) pg MCHC (33.0-38.0) g/dL RDW Coeff of Zan (11.0-15.0) % Plt Count (150-400) 10^3/uL Neut % (Auto) (35-85) % Lymph % (Auto) (10-55) % [place] % (Auto) (0-16) % Eos % (Auto) (0-5) % Baso % (Auto) (0-3) % Neut # (Auto) (1.80-7.00) 10^3/uL Lymph # (Auto) (1.00-4.80) 10^3/uL [place] # (Auto) (0.00-0.80) 10^3/uL Eos # (Auto) (0.00-0.45) 10^3/uL Baso # (Auto) 10^3/uL D-Dimer, Quantitative (0.00-0.50) Sodium 135 L (136-145) mEq/L Potassium 3.9 (3.5-5.0) mEq/L Chloride 100 (98-106) mEq/L Carbon Dioxide 30 (21-32) mmol/L BUN 14 (7-18) mg/dL Creatinine 1.2 H (0.6-1.0) mg/dL Est Cr Clr Drug Dosing 29.90 mL/min Estimated GFR (MDRD) 43 L (>=60) mL/min Glucose 94 (75-99) mg/dL Calcium 9.3 (8.4-10.1) mg/dL Total Bilirubin 0.9 (0.0-1.0) mg/dL AST 25 (15-37) U/L ALT 14 (12-78) U/L Alkaline Phosphatase 79 (46-116) U/L Lactate Dehydrogenase 285 H (100-190) U/L Creatine Kinase 61 (21-215) U/L Troponin I < 0.017 (0.00-0.06) ng/mL C-Reactive Protein 0.6 (0.2-0.8) mg/dL Total Protein 6.6 (6.4-8.2) g/dL Albumin 2.8 L (3.4-5.0) g/dL Urine Color (YELLOW) Urine Appearance (CLEAR) Urine pH (4.5-8.0) Ur Specific [place] (1.003-1.020) Urine Protein (NEGATIVE) mg/dL Urine Glucose (UA) (NEGATIVE) mg/dL Urine Ketones (NEGATIVE) mg/dL Urine Occult Blood (NEGATIVE) Urine Nitrite (NEGATIVE) Urine Bilirubin (NEGATIVE) Urine Urobilinogen (0.2-1.0) EU/dL Ur Leukocyte Esterase (NEGATIVE) Urine RBC (0-5) /HPF Urine WBC (0-5) /HPF Ur Epithelial Cells (NOT SEEN) /HPF Urine Bacteria (NOT SEEN) /HPF SARS CoV-2 RNA Rapid MABEL Negative (NEGATIVE) - Re-Assessments/Exams Free Text/Narrative Re-Assessment/Exam: 09/06/20 12:[address] is negative. Xray of right ankle is negative. Chest xray does show opacities but consistent with xray from last 2 months. 09/06/20 12:37 Discussed this with patient. Declines admission. Does feel safe to return home. Advised to limit caffeine, push fluids, rest, take cautious movements. No urinary symptoms, will culture urine. Departure - Departure Time of Disposition: 12:39 Disposition: Home, Self-Care 01 Condition: Fair Clinical Impression: Syncope, Right ankle pain - Discharge Information *PRESCRIPTION DRUG MONITORING PROGRAM REVIEWED*: No *COPY OF PRESCRIPTION DRUG MONITORING REPORT IN PATIENT JULIA: No Instructions: Dehydration, Adult, [id number], Syncope, [id number] Forms: ED Department Discharge Additional Instructions: 1. Rest 2. Push fluids 3. Slow cautious movements 4. Limit caffeine 5. Return if worsening symptoms or concerns. 6. Walker as needed until ankle improved Sepsis Event Note (ED) - Evaluation Sepsis Screening Result: No Definite Risk - Focused Exam Vital Signs: Vital Signs Temp Pulse Resp BP Pulse Ox 09/06/20 12:32 65 18 160/60 H 95 09/06/20 10:48 98.5 F 68 18 166/68 H 95 - My Orders Last 24 Hours: My Active Orders 09/06/20 10:49 EKG 12 Lead [EK] Stat 09/06/20 10:50 Ankle Min 3V Rt [CR] Stat Ribs 2V w Chest Rt [CR] Stat 09/06/20 11:19 Head wo Cont [CT] Stat - Assessment/Plan Last 24 Hours: My Active Orders 09/06/20 10:49 EKG 12 Lead [EK] Stat 09/06/20 10:50 Ankle Min 3V Rt [CR] Stat Ribs 2V w Chest Rt [CR] Stat 09/06/20 11:19 Head wo Cont [CT] Stat
[2020-09-06 12:32] VITALS: BP 160/60; PULSE 65
== END 2020-09-06 12:55 | disposition home or self-care (01) ==
LOC: CC.ED 10:40
DX: R55 Syncope and collapse (principal); M25.571 Pain in right ankle and joints of right foot; I48.91 Unspecified atrial fibrillation; E78.00 Pure hypercholesterolemia, unspecified; J44.9 Chronic obstructive pulmonary disease, unspecified; Z87.891 Personal history of nicotine dependence; Z88.5 Allergy status to narcotic agent; Z88.8 Allergy status to other drugs, medicaments and biological substances; Z79.01 Long term (current) use of anticoagulants; Z79.899 Other long term (current) drug therapy; W19.XXXA Unspecified fall, initial encounter; Z20.828 Contact with and (suspected) exposure to other viral communicable diseases
CPT/HCPCS: 36415; 70450; 71101-RT; 73610-RT; 80053; 81001; 82550; 83615; 84484; 85025; 85379; 86140; 87086; 93005; 93010; 99284; 99284-25; U0002

== ENCOUNTER 2020-09-24 08:26 | Inpatient (IN) | payer MEDICARE, OTHER ==
[2020-09-24] MEDS ORDERED: Aspirin 81 MG Tab.Chew PO ONE (08:46)
[2020-09-24 09:24] LABS: CHLORIDE,CL 100 mEq/L (98-106); SODIUM,NA 136 mEq/L (136-145)
--- NOTE | 2020-09-24 09:33 | EDM.PDOC ---
ED HPI GENERAL MEDICAL PROBLEM - General Chief Complaint: Chest Pain Stated Complaint: dizziness Time Seen by Provider: 09/24/20 09:29 Source of Information: Reports: Patient, RN History Limitations: Reports: No Limitations - History of Present Illness INITIAL COMMENTS - FREE TEXT/NARRATIVE: States that she felt really dizzy and was trying to get to chair. She became dizzy and fell. She hit her head on the right side above the eye. She denies any LOC with it. Has laceration above the right eye. She is also having chest pain midsternal. She states that since she had pneumonia a month ago it continues to feel really heavy. Has continued to have SOB with it. Minimal cough and not productive when she does. She is COVID negative today. She denies any pain to the lower extremities. She becomes very dizzy when up to the commode. Onset: Gradual Duration: Getting Worse Chest Pain Score (Numeric/FACES): 4 Lower Back Pain Score (Numeric/FACES): 6 - Related Data Allergies Allergy/AdvReac Type Severity Reaction Status Date / Time codeine Allergy Hives Verified 09/24/20 10:55 diazepam [From Valium] Allergy Hallucinati Verified 09/24/20 10:55 ons regadenoson [From Lexiscan] Allergy Syncope Verified 09/24/20 10:55 tramadol Allergy Difficulty Verified 09/24/20 10:55 Breathing Home Meds: Home Meds Cholecalciferol (Vitamin D3) [Vitamin D3] 5,000 unit PO DAILY 02/01/15 [History] Docusate Sodium [Colace] 100 mg PO BEDTIME PRN 02/01/15 [History] Lutein 20 mg PO DAILY 02/01/15 [History] Magnesium 250 mg PO DAILY 02/01/15 [History] Vitamin B Complex [B Complex] 1 each PO DAILY 02/01/15 [History] Vitamin E 400 unit PO DAILY 02/01/15 [History] atorvaSTATin [Lipitor] 20 mg PO WITHLUNCH 02/01/15 [History] Meclizine HCl 25 mg PO Q8HR PRN 08/14/16 [History] Calcium Carbonate [Calcium] 600 mg PO BID 10/18/17 [History] Apixaban [Eliquis] 2.5 mg PO BID 07/31/20 [History] Metoprolol Succinate [Toprol XL] 25 mg PO WITHLUNCH 07/31/20 [History] Omeprazole Magnesium [Prilosec Otc] 20 mg PO DAILY PRN 09/24/20 [History] Past Medical History HEENT History: Reports: Allergic Rhinitis Cardiovascular History: Reports: Afib, High Cholesterol Respiratory History: Reports: COPD Gastrointestinal History: Reports: Chronic Constipation, GERD Musculoskeletal History: Reports: Osteoporosis Neurological History: Reports: Vertigo - Infectious Disease History Infectious Disease History: Reports: None - Past Surgical History GI Surgical History: Reports: Cholecystectomy Female Surgical History: Reports: Other (See Below) Other Female Surgeries/Procedures: BLADDER SX Neurological Surgical History: Reports: Lumbar Spine Musculoskeletal Surgical History: Reports: Other (See Below) Other Musculoskeletal Surgeries/Procedures:: SPINE SX 2011 Social & Family History - Family History Family Medical History: No Pertinent Family History - Tobacco Use Tobacco Use Status *Q: Former Tobacco User Used Tobacco, but Quit: Yes Month/Year Tobacco Last Used: 10/2019 - Caffeine Use Caffeine Use: Reports: None - Recreational Drug Use Recreational Drug Use: No - Living Situation & Occupation Living situation: Reports: , with Spouse Occupation: Retired ED ROS GENERAL - Review of Systems Review Of Systems: See Below Constitutional: Denies: Fever, Chills Respiratory: Reports: Shortness of Breath Cardiovascular: Reports: Chest Pain GI/Abdominal: Reports: No Symptoms : Reports: No Symptoms Musculoskeletal: Reports: Back Pain Skin: Reports: No Symptoms Neurological: Reports: Dizziness. Denies: Confusion, Numbness, Tingling ED EXAM, GENERAL - Physical Exam Exam: See Below Exam Limited By: No Limitations General Appearance: Alert, WD/WN, Anxious, Mild Distress Ears: Normal External Exam, Normal Canal, Normal TMs Nose: Normal Inspection Throat/Mouth: Normal Inspection, Normal Oropharynx Head: Atraumatic, Normocephalic Neck: Normal Inspection, Supple, Non-Tender, Full Range of Motion Respiratory/Chest: No Respiratory Distress, Decreased Breath Sounds (to bases.), Rhonchi (to the right mid lung), Other (slightly SOB at rest. No cough in the ER. ) Cardiovascular: Normal Peripheral Pulses, Regular Rate, Rhythm, No Edema GI/Abdominal: Normal Bowel Sounds, Soft, Non-Tender Back Exam: Normal Inspection, Full Range of Motion Extremities: Normal Range of Motion, Non-Tender, Normal Capillary Refill Neurological: Alert, Oriented, CN II-XII Intact Skin Exam: Warm, Dry, Other (laceration above the right eyebrow. It is gapping and trickle of blood. Area is very ecchymotic and swollen from laceration to around the eye.) ED LACERATION PROCEDURES - Laceration/Wound Repair Right Forehead Lac/wound length in cm: 1.3 Appearance: Superficial Distal NVT: Neuro & Vascular Intact Anesthetic Type: Local Local Anesthesia - Lidocaine (Xylocaine): 1% Plain Local Anesthetic Volume: 1cc Skin Prep: Other (sure clens.) Closed with: Sutures Suture Size: 5-0 # of Sutures: 2 Suture Type: Interrupted Sterile Dressing Applied: None Tetanus Status Addressed: Yes Complications: No Course - Vital Signs Last Recorded V/S: Last Vital Signs Temp 98.7 F 09/24/20 16:00 Pulse 59 L 09/24/20 13:50 Resp 16 09/24/20 16:00 BP 133/55 L 09/24/20 16:00 Pulse Ox 95 09/24/20 16:00 - Orders/Labs/Meds Orders: Active Orders 24 hr Category Date Time Status Chest 1V Frontal [CR] Stat Exams 09/24/20 08:49 Taken Chest PE [Ang Chest] [CT] Stat Exams 09/24/20 10:29 Taken Head wo Cont [CT] Stat Exams 09/24/20 09:21 Taken Medication Orders Acetaminophen (Tylenol) 650 mg PO Q4H PRN PRN Reason: Pain Apixaban (Eliquis) 2.5 mg PO BID [facility] Atorvastatin Calcium (Lipitor) 20 mg PO WITHLUNCH [facility] Docusate Sodium (Colace) 100 mg PO BEDTIME PRN PRN Reason: Constipation Dextrose/Sodium Chloride (Dextrose 5%-1/2 Ns) 1,000 mls @ 50 mls/hr IV ASDIRECTED [facility] Last Admin: 09/24/20 14:54 Dose: 50 mls/hr Documented by: SLIME Levofloxacin/Dextrose 500 mg/ (Premix) 100 mls @ 100 mls/hr IV Q24H [facility] Last Admin: 09/24/20 13:52 Dose: 100 mls/hr Documented by: JESSICA Magnesium Oxide (Magnesium Oxide) 250 mg PO DAILY [facility] Methylprednisolone Sodium Succinate (Solu-Medrol) 62.5 mg IVPUSH Q24H [facility] Last Admin: 09/24/20 13:50 Dose: 62.5 mg Documented by: [id number] Metoprolol Succinate (Toprol Xl) 25 mg PO WITHLUNCH [facility] Last Admin: 09/24/20 13:50 Dose: 25 mg Documented by: [id number] Pantoprazole Sodium (Protonix) 40 mg PO DAILY PRN PRN Reason: Heartburn Sodium Chloride (Saline Flush) 10 ml FLUSH ASDIRECTED PRN PRN Reason: Keep Vein Open Labs: Laboratory Tests 09/24/20 09/24/20 09/24/20 Range/Units 09:00 09:00 09:00 WBC 8.3 (5.0-10.0) 10^3/uL RBC 4.38 (4.00-5.50) 10^6/uL Hgb 13.9 (12.0-16.0) g/dL Hct 42.1 (37.0-47.0) % MCV 96.1 H (82.0-94.0) fL MCH 31.7 (27.0-32.0) pg MCHC 33.0 (33.0-38.0) g/dL RDW Coeff of Zan 13.4 (11.0-15.0) % Plt Count 270 (150-400) 10^3/uL Neut % (Auto) 69.9 (35-85) % Lymph % (Auto) 11.8 (10-55) % [place] % (Auto) 16.5 H (0-16) % Eos % (Auto) 1.7 (0-5) % Baso % (Auto) 0.1 (0-3) % Neut # (Auto) 5.81 (1.80-7.00) 10^3/uL Lymph # (Auto) 0.98 L (1.00-4.80) 10^3/uL [place] # (Auto) 1.37 H (0.00-0.80) 10^3/uL Eos # (Auto) 0.14 (0.00-0.45) 10^3/uL Baso # (Auto) 0.01 10^3/uL PT 10.7 (9.7-12.3) SEC INR 1.06 (0.92-1.18) D-Dimer, Quantitative (0.00-0.50) Sodium 136 (136-145) mEq/L Potassium 3.9 (3.5-5.0) mEq/L Chloride 100 (98-106) mEq/L Carbon Dioxide 27 (21-32) mmol/L BUN 15 (7-18) mg/dL Creatinine 1.3 H (0.6-1.0) mg/dL Est Cr Clr Drug Dosing 26.39 mL/min Estimated GFR (MDRD) 39 L (>=60) mL/min Glucose 103 H (75-99) mg/dL Calcium 9.2 (8.4-10.1) mg/dL Total Bilirubin 1.1 H (0.0-1.0) mg/dL AST 25 (15-37) U/L ALT 16 (12-78) U/L Alkaline Phosphatase 99 (46-116) U/L Lactate Dehydrogenase 286 H (100-190) U/L Creatine Kinase 48 (21-215) U/L Troponin I < 0.017 (0.00-0.06) ng/mL Total Protein 6.8 (6.4-8.2) g/dL Albumin 2.9 L (3.4-5.0) g/dL Amylase (25-115) U/L Lipase 168 (73-393) U/L Urine Color (YELLOW) Urine Appearance (CLEAR) Urine pH (4.5-8.0) Ur Specific [place] (1.003-1.020) Urine Protein (NEGATIVE) mg/dL Urine Glucose (UA) (NEGATIVE) mg/dL Urine Ketones (NEGATIVE) mg/dL Urine Occult Blood (NEGATIVE) Urine Nitrite (NEGATIVE) Urine Bilirubin (NEGATIVE) Urine Urobilinogen (0.2-1.0) EU/dL Ur Leukocyte Esterase (NEGATIVE) Urine RBC (0-5) /HPF Urine WBC (0-5) /HPF SARS CoV-2 RNA Rapid MABEL (NEGATIVE) 09/24/20 09/24/20 09/24/20 Range/Units 09:00 09:00 09:00 WBC (5.0-10.0) 10^3/uL RBC (4.00-5.50) 10^6/uL Hgb (12.0-16.0) g/dL Hct (37.0-47.0) % MCV (82.0-94.0) fL MCH (27.0-32.0) pg MCHC (33.0-38.0) g/dL RDW Coeff of Zan (11.0-15.0) % Plt Count (150-400) 10^3/uL Neut % (Auto) (35-85) % Lymph % (Auto) (10-55) % [place] % (Auto) (0-16) % Eos % (Auto) (0-5) % Baso % (Auto) (0-3) % Neut # (Auto) (1.80-7.00) 10^3/uL Lymph # (Auto) (1.00-4.80) 10^3/uL [place] # (Auto) (0.00-0.80) 10^3/uL Eos # (Auto) (0.00-0.45) 10^3/uL Baso # (Auto) 10^3/uL PT (9.7-12.3) SEC INR (0.92-1.18) D-Dimer, Quantitative 6.23 H (0.00-0.50) Sodium (136-145) mEq/L Potassium (3.5-5.0) mEq/L Chloride (98-106) mEq/L Carbon Dioxide (21-32) mmol/L BUN (7-18) mg/dL Creatinine (0.6-1.0) mg/dL Est Cr Clr Drug Dosing mL/min Estimated GFR (MDRD) (>=60) mL/min Glucose (75-99) mg/dL Calcium (8.4-10.1) mg/dL Total Bilirubin (0.0-1.0) mg/dL AST (15-37) U/L ALT (12-78) U/L Alkaline Phosphatase (46-116) U/L Lactate Dehydrogenase (100-190) U/L Creatine Kinase (21-215) U/L Troponin I (0.00-0.06) ng/mL Total Protein (6.4-8.2) g/dL Albumin (3.4-5.0) g/dL Amylase 55 (25-115) U/L Lipase (73-393) U/L Urine Color (YELLOW) Urine Appearance (CLEAR) Urine pH (4.5-8.0) Ur Specific [place] (1.003-1.020) Urine Protein (NEGATIVE) mg/dL Urine Glucose (UA) (NEGATIVE) mg/dL Urine Ketones (NEGATIVE) mg/dL Urine Occult Blood (NEGATIVE) Urine Nitrite (NEGATIVE) Urine Bilirubin (NEGATIVE) Urine Urobilinogen (0.2-1.0) EU/dL Ur Leukocyte Esterase (NEGATIVE) Urine RBC (0-5) /HPF Urine WBC (0-5) /HPF SARS CoV-2 RNA Rapid MABEL Negative (NEGATIVE) 09/24/20 Range/Units 09:31 WBC (5.0-10.0) 10^3/uL RBC (4.00-5.50) 10^6/uL Hgb (12.0-16.0) g/dL Hct (37.0-47.0) % MCV (82.0-94.0) fL MCH (27.0-32.0) pg MCHC (33.0-38.0) g/dL RDW Coeff of Zan (11.0-15.0) % Plt Count (150-400) 10^3/uL Neut % (Auto) (35-85) % Lymph % (Auto) (10-55) % [place] % (Auto) (0-16) % Eos % (Auto) (0-5) % Baso % (Auto) (0-3) % Neut # (Auto) (1.80-7.00) 10^3/uL Lymph # (Auto) (1.00-4.80) 10^3/uL [place] # (Auto) (0.00-0.80) 10^3/uL Eos # (Auto) (0.00-0.45) 10^3/uL Baso # (Auto) 10^3/uL PT (9.7-12.3) SEC INR (0.92-1.18) D-Dimer, Quantitative (0.00-0.50) Sodium (136-145) mEq/L Potassium (3.5-5.0) mEq/L Chloride (98-106) mEq/L Carbon Dioxide (21-32) mmol/L BUN (7-18) mg/dL Creatinine (0.6-1.0) mg/dL Est Cr Clr Drug Dosing mL/min Estimated GFR (MDRD) (>=60) mL/min Glucose (75-99) mg/dL Calcium (8.4-10.1) mg/dL Total Bilirubin (0.0-1.0) mg/dL AST (15-37) U/L ALT (12-78) U/L Alkaline Phosphatase (46-116) U/L Lactate Dehydrogenase (100-190) U/L Creatine Kinase (21-215) U/L Troponin I (0.00-0.06) ng/mL Total Protein (6.4-8.2) g/dL Albumin (3.4-5.0) g/dL Amylase (25-115) U/L Lipase (73-393) U/L Urine Color Yellow (YELLOW) Urine Appearance Clear (CLEAR) Urine pH 7.5 (4.5-8.0) Ur Specific [place] 1.025 H (1.003-1.020) Urine Protein Negative (NEGATIVE) mg/dL Urine Glucose (UA) Negative (NEGATIVE) mg/dL Urine Ketones Negative (NEGATIVE) mg/dL Urine Occult Blood Trace-intact H (NEGATIVE) Urine Nitrite Negative (NEGATIVE) Urine Bilirubin Negative (NEGATIVE) Urine Urobilinogen 0.2 (0.2-1.0) EU/dL Ur Leukocyte Esterase Negative (NEGATIVE) Urine RBC Not seen (0-5) /HPF Urine WBC 0-5 (0-5) /HPF SARS CoV-2 RNA Rapid MABEL (NEGATIVE) Meds: Medications Generic Name Dose Route Start Last Admin Trade Name Freq PRN Reason Stop Dose Admin Acetaminophen 650 mg 09/24/20 13:09 Tylenol PO Q4H PRN Pain Apixaban 2.5 mg 09/24/20 20:00 Eliquis PO BID [facility] Atorvastatin Calcium 20 mg 09/25/20 12:00 Lipitor PO WITHLUNCH [facility] Docusate Sodium 100 mg 09/24/20 13:05 Colace PO BEDTIME PRN Constipation Dextrose/Sodium Chloride 1,000 mls @ 50 mls/hr 09/24/20 13:00 09/24/20 14:54 Dextrose 5%-1/2 Ns IV 50 mls/hr ASDIRECTED JEFFREY Administration Levofloxacin/Dextrose 500 mg/ 100 mls @ 100 mls/hr 09/24/20 13:15 09/24/20 13:52 Premix IV 100 mls/hr Q24H [facility]FF[facility] Administration Magnesium Oxide 250 mg 09/25/20 08:00 Magnesium Oxide PO DAILY [facility] Methylprednisolone Sodium Succinate 62.5 mg 09/24/20 13:15 09/24/20 13:50 Solu-Medrol IVPUSH 62.5 mg Q24H [facility] Administration Metoprolol Succinate 25 mg 09/24/20 13:45 09/24/20 13:50 Toprol Xl PO 25 mg WITHLUNCH JEFF[facility] Administration Pantoprazole Sodium 40 mg 09/24/20 13:29 Protonix PO DAILY PRN Heartburn Sodium Chloride 10 ml 09/24/20 12:56 Saline Flush FLUSH ASDIRECTED PRN Keep Vein Open Discontinued Medications Generic Name Dose Route Start Last Admin Trade Name Freq PRN Reason Stop Dose Admin Aspirin 324 mg 09/24/20 08:46 09/24/20 09:00 Aspirin PO 09/24/20 08:47 324 mg ONETIME ONE Administration Diphtheria/Tetanus/Acell Pertussis 0.5 ml 09/24/20 09:34 09/24/20 10:00 Adacel IM 09/24/20 09:35 0.5 ml .ONCE ONE Administration Iopamidol 100 ml 09/24/20 10:28 09/24/20 10:57 Isovue-370 (76%) IVPUSH 09/24/20 10:29 100 ml ONETIME ONE Administration Lidocaine HCl 5 ml 09/24/20 10:20 09/24/20 10:35 Xylocaine-Mpf 1% INJECT 09/24/20 10:21 5 ml ONETIME ONE Administration Non-Formulary Medication 20 mg 09/25/20 08:00 Lutein [Lutein] PO DAILY JEFF[facility] - Re-Assessments/Exams Free Text/Narrative Re-Assessment/Exam: 09/24/[address] Lundy. Due to the dizziness and pneumonia on CT scan she will be admitted with IV levaquin per his recommendation. She will get mild IV hydration and monitored for improvement and watch for CHF. Will repeat labs daily to monitor for improvement. Departure - Departure Time of Disposition: 11:55 Disposition: Admitted As Inpatient 68 Condition: Fair Clinical Impression: Pneumonia Sepsis Event Note (ED) - Evaluation Sepsis Screening Result: No Definite Risk - Focused Exam Vital Signs: Vital Signs Temp Pulse Resp BP Pulse Ox 09/24/20 11:15 160/71 H 09/24/20 11:00 97.5 F 20 183/63 H 97 09/24/20 08:40 97.3 F 71 20 173/75 H 93 L - Problem List & Annotations (1) Pneumonia SNOMED Code(s): 088326108 Code(s): J18.9 - PNEUMONIA, UNSPECIFIED ORGANISM Status: Acute Priority: High Current Visit: No Qualifiers: Pneumonia type: due to unspecified organism Laterality: bilateral Lung location: unspecified part of lung Qualified Code(s): J18.9 - Pneumonia, unspecified organism (2) Syncope SNOMED Code(s): 600367476 Code(s): R55 - SYNCOPE AND COLLAPSE Status: Acute Priority: High Cu rrent Visit: No (3) Laceration SNOMED Code(s): 833100976 Code(s): DHH5579 - Status: Acute Priority: Low Current Visit: Yes (4) Fall at home SNOMED Code(s): 85828518 Code(s): W19.XXXA - UNSPECIFIED FALL, INITIAL ENCOUNTER; Y92.009 - UNSP PLACE IN UNSP NON-INSTITUT (PRIVATE) RESIDENCE PLACE Status: Acute Priority: Low Current Visit: Yes Qualifiers: Encounter type: initial encounter Qualified Code(s): W19.XXXA - Unspecified fall, initial encounter; Y92.009 - Unspecified place in unspecified non- institutional (private) residence as the place of occurrence of the external cause - Problem List Review Problem List Initiated/Reviewed/Updated: Yes - My Orders Last 24 Hours: My Active Orders 09/24/20 08:49 Chest 1V Frontal [CR] Stat 09/24/20 09:21 Head wo Cont [CT] Stat 09/24/20 10:29 Chest PE [Ang Chest] [CT] Stat - Assessment/Plan Admission H&P: Please use this note as an admission H&P Last 24 Hours: My Active Orders 09/24/20 08:49 Chest 1V Frontal [CR] Stat 09/24/20 09:21 Head wo Cont [CT] Stat 09/24/20 10:29 Chest PE [Ang Chest] [CT] Stat Plan: Will be admitted for IV antibiotics and hydration. FOllow labs daily.
[2020-09-24] MEDS ORDERED: Diphtheria,Pertussis(Acell),Tetanus Vaccine 0.5 ML Syringe IM ONE (09:34)
[2020-09-24] MEDS ORDERED: Iopamidol 755 Mg/ML 100 ML Bottle IVPUSH ONE (10:28)
[2020-09-24] MEDS ORDERED: Sodium Chloride 0.9% 10 ML Syringe FLUSH PRN (12:56)
[2020-09-24] MEDS ORDERED: Dextrose 5%-0.45% NaCl 1,000 ML IV SCH (13:00)
[2020-09-24] MEDS ORDERED: Docusate Sodium 100 MG Cap PO PRN (13:05)
[2020-09-24] MEDS ORDERED: Acetaminophen 325 MG Tab PO PRN (13:09)
[2020-09-24] MEDS ORDERED: Pantoprazole 40 MG Tab.CR PO PRN (13:29)
[2020-09-24] MEDS: Metoprolol Succinate 25 MG Tab.ER PO SCH (13:50)
[2020-09-24] MEDS: methylPREDNISolone Sodium Succinate 125 MG/2 ML SDV IVPUSH SCH (13:50)
[2020-09-24] MEDS: Levofloxacin/Dextrose 5%-Water 500 MG in Premix Bag 1 BAG IV SCH (13:52)
[2020-09-24] MEDS: Apixaban 5 MG Tab PO SCH (19:15)
[2020-09-25] MEDS: Apixaban 5 MG Tab PO SCH ×2 (07:47→19:34)
[2020-09-25] MEDS ORDERED: Non-Formulary Medication 1 Each (Lutein [Lutein] 20 MG) PO SCH (08:00)
--- NOTE | 2020-09-25 11:26 | PCM.PN ---
- General Info Date of Service: 09/25/20 Admission Dx/Problem (Free Text): Bilateral Pneumonia Fall at home Laceration of right eyebrow Syncope Subjective Update: Nathalia is an 84 year old female who was admitted to the hospital yesterday from the ED with bilateral pneumonia. Apparently has been having weakness and syncopal episodes for some time now. Fell and hit eye on table causing laceration and was unable to get up so EMS was called. Was found to have elevated D-dimer. Had chest CTA which revealed bilateral infiltrates. Was admitted and started on IV antibiotics. She reports she feels slightly better this morning. Has not had any further syncopal episodes. Has had previous workup for theses syncopal episodes without significant findings. She reports she has chronic cough and sputum production. Is a smoker, but quit almost 1 year ago. She denies any chest pain, dizziness, syncope. Does report chronic shortness of breath. Is eating and drinking well. Her only complaint at time of rounds is mid back pain. She reports she has been dealing with this for awhile, but it seemed to worsen when she fell a few weeks ago. Functional Status: Reports: Pain Controlled, Tolerating Diet, Ambulating, Urinating. Denies: New Symptoms - Review of Systems General: Reports: Weakness. Denies: Fever, Fatigue, Malaise, Chills HEENT: Reports: No Symptoms Pulmonary: Reports: Shortness of Breath, Cough, Sputum. Denies: Pleuritic Chest Pain, Hemoptysis, Wheezing Cardiovascular: Reports: Dyspnea on Exertion. Denies: Chest Pain, Palpitations, Orthopnea, Edema, Lightheadedness Gastrointestinal: Reports: No Symptoms. Denies: Abdominal Pain, Decreased Appetite, Diarrhea, Nausea, Vomiting Genitourinary: Reports: No Symptoms Musculoskeletal: Reports: Back Pain Skin: Reports: Bruising (right eye) Neurological: Reports: No Symptoms Psychiatric: Reports: No Symptoms - Patient Data Vitals - Most Recent: Last Vital Signs Temp 97.7 F 09/25/20 08:00 Pulse 57 L 09/25/20 08:00 Resp 16 09/25/20 08:00 BP 149/57 H 09/25/20 08:00 Pulse Ox 94 L 09/25/20 08:00 Weight - Most Recent: 125 lb 8 oz Lab Results Last 24 Hours: Laboratory Results - last 24 hr 09/25/20 09/25/20 Range/Units 07:00 07:20 WBC 15.0 H (5.0-10.0) 10^3/uL RBC 4.10 (4.00-5.50) 10^6/uL Hgb 13.2 (12.0-16.0) g/dL Hct 39.3 (37.0-47.0) % MCV 95.9 H (82.0-94.0) fL MCH 32.2 H (27.0-32.0) pg MCHC 33.6 (33.0-38.0) g/dL RDW Coeff of Zan 13.4 (11.0-15.0) % Plt Count 238 (150-400) 10^3/uL Neut % (Auto) 84.8 (35-85) % Lymph % (Auto) 5.9 L (10-55) % [place] % (Auto) 9.2 (0-16) % Eos % (Auto) 0 (0-5) % Baso % (Auto) 0.1 (0-3) % Neut # (Auto) 12.70 H (1.80-7.00) 10^3/uL Lymph # (Auto) 0.88 L (1.00-4.80) 10^3/uL [place] # (Auto) 1.38 H (0.00-0.80) 10^3/uL Eos # (Auto) 0.00 (0.00-0.45) 10^3/uL Baso # (Auto) 0.01 10^3/uL Sodium 136 (136-145) mEq/L Potassium 4.4 (3.5-5.0) mEq/L Chloride 101 (98-106) mEq/L Carbon Dioxide 26 (21-32) mmol/L BUN 17 (7-18) mg/dL Creatinine 1.2 H (0.6-1.0) mg/dL Est Cr Clr Drug Dosing 28.59 mL/min Estimated GFR (MDRD) 43 L (>=60) mL/min Glucose 135 H D (75-99) mg/dL Calcium 8.7 (8.4-10.1) mg/dL C-Reactive Protein 0.5 (0.2-0.8) mg/dL Shravan Results Last 24 Hours: Microbiology 09/24/20 09:00 Influenza Type A Antigen Screen - Final Nasopharyngeal Swab NEGATIVE INFLUENZA A VIRUS AG REFERENCE RANGE: NEGATIVE Influenza Type B Antigen Screen - Final NEGATIVE INFLUENZA B VIRUS AG REFERENCE RANGE: NEGATIVE Med Orders - Current: Current Medications Acetaminophen (Tylenol) 650 mg PO Q4H PRN PRN Reason: Pain Apixaban (Eliquis) 2.5 mg PO BID [facility] Last Admin: 09/25/20 07:47 Dose: 2.5 mg Documented by: Atorvastatin Calcium (Lipitor) 20 mg PO WITHLUNCH [facility] Docusate Sodium (Colace) 100 mg PO BEDTIME PRN PRN Reason: Constipation Levofloxacin/Dextrose 500 mg/ (Premix) 100 mls @ 100 mls/hr IV Q24H [facility] Last Admin: 09/24/20 13:52 Dose: 100 mls/hr Documented by: Magnesium Oxide (Magnesium Oxide) 250 mg PO DAILY [facility] Last Admin: 09/25/20 07:47 Dose: 250 mg Documented by: Methylprednisolone Sodium Succinate (Solu-Medrol) 62.5 mg IVPUSH Q24H [facility] Last Admin: 09/24/20 13:50 Dose: 62.5 mg Documented by: Metoprolol Succinate (Toprol Xl) 25 mg PO WITHLUNCH [facility] Last Admin: 09/24/20 13:50 Dose: 25 mg Documented by: Pantoprazole Sodium (Protonix) 40 mg PO DAILY PRN PRN Reason: Heartburn Sodium Chloride (Saline Flush) 10 ml FLUSH ASDIRECTED PRN PRN Reason: Keep Vein Open Discontinued Medications Aspirin (Aspirin) 324 mg PO ONETIME ONE Stop: 09/24/20 08:47 Last Admin: 09/24/20 09:00 Dose: 324 mg Documented by: Diphtheria/Tetanus/Acell Pertussis (Adacel) 0.5 ml IM .ONCE ONE Stop: 09/24/20 09:35 Last Admin: 09/24/20 10:00 Dose: 0.5 ml Documented by: Dextrose/Sodium Chloride (Dextrose 5%-1/2 Ns) 1,000 mls @ 50 mls/hr IV ASDIRECTED [facility] Last Admin: 09/24/20 14:54 Dose: 50 mls/hr Documented by: Iopamidol (Isovue-370 (76%)) 100 ml IVPUSH ONETIME ONE Stop: 09/24/20 10:29 Last Admin: 09/24/20 10:57 Dose: 100 ml Documented by: Lidocaine HCl (Xylocaine-Mpf 1%) 5 ml INJECT ONETIME ONE Stop: 09/24/20 10:21 Last Admin: 09/24/20 10:35 Dose: 5 ml Documented by: Non-Formulary Medication (Lutein [Lutein]) 20 mg PO DAILY [facility] - Exam Quality Assessment: DVT Prophylaxis. No: Supplemental Oxygen General: Alert, Oriented, No Acute Distress Neck: Supple Lungs: Clear to Auscultation, Normal Respiratory Effort, Decreased Breath Sounds Cardiovascular: Regular Rate, Regular Rhythm GI/Abdominal Exam: Normal Bowel Sounds, Soft, Non-Tender, No Organomegaly, No Distention, No Abnormal Bruit, No Mass, Pelvis Stable Back Exam: Normal Inspection, Full Range of Motion, Paraspinal Tenderness (mid thoracic area). No: Vertebral Tenderness Extremities: Normal Inspection, Normal Range of Motion, Non-Tender, No Pedal Edema, Normal Capillary Refill Peripheral Pulses: 2+: Dorsalis Pedis (L), Dorsalis Pedis (R) Skin: Warm, Dry, Ecchymosis (right eye, BUE), Other (laceration right eyebrow, CDI, skin tear to right forearm) Neurological: No New Focal Deficit Psy/Mental Status: Alert, Normal Affect, Normal Mood Sepsis Event Note - Evaluation Sepsis Screening Result: No Definite Risk - Focused Exam Vital Signs: Vital Signs Temp Pulse Resp BP BP Pulse Ox 09/25/20 08:00 97.7 F 57 L 16 149/57 H 94 L 09/25/20 04:00 98.4 F 66 18 129/59 L 95 09/25/20 00:00 97.8 F 67 18 125/55 L 95 - Problem List & Annotations (1) Pneumonia SNOMED Code(s): 441847376 Code(s): J18.9 - PNEUMONIA, UNSPECIFIED ORGANISM Status: Acute Priority: High Current Visit: Yes Qualifiers: Pneumonia type: due to unspecified organism Laterality: bilateral Lung location: unspecified part of lung Qualified Code(s): J18.9 - Pneumonia, unspecified organism (2) Fall at home SNOMED Code(s): 24476718 Code(s): W19.XXXA - UNSPECIFIED FALL, INITIAL ENCOUNTER; Y92.009 - UNSP PLACE IN UNSP NON-INSTITUT (PRIVATE) RESIDENCE PLACE Status: Acute Priority: Low Current Visit: Yes Qualifiers: Encounter type: initial encounter Qualified Code(s): W19.XXXA - Unspecified fall, initial encounter; Y92.009 - Unspecified place in unspecified non- institutional (private) residence as the place of occurrence of the external cause (3) Laceration SNOMED Code(s): 586560430 Code(s): [id number] - Status: Acute Priority: Low Current Visit: Yes (4) Syncope SNOMED Code(s): 090860706 Code(s): R55 - SYNCOPE AND COLLAPSE Status: Acute Priority: High Current Visit: No - Problem List Review Problem List Initiated/Reviewed/Updated: Yes - My Orders Last 24 Hours: My Active Orders 09/25/20 11:25 CULTURE SPUTUM + SMEAR [RM] Routine - Assessment Assessment:: Bilateral Pneumonia Syncope Fall at Home Laceration - Plan Plan:: Patient doing well this morning. Continues to have loose cough with occasional sputum production. Has chronic SOB, worse with exertion. No chest pain today. VS remain stable. O2 sats 94% on RA. Lungs sounds clear. No near syncope/syncopal episodes since admission. Tele remains NSR. WBc elevated to 15 from 8.3 yesterday. Creatinine 1.2. Labs otherwise stable. Discontinue IVF. Will attempt to obtain sputum culture. Continue with IV Levaquin and SoluMedrol at this time. Repeat labs in am.
[2020-09-25] MEDS: atorvaSTATin 20 MG Tab PO SCH (11:55)
[2020-09-25] MEDS: Metoprolol Succinate 25 MG Tab.ER PO SCH (11:55)
[2020-09-25] MEDS: methylPREDNISolone Sodium Succinate 125 MG/2 ML SDV IVPUSH SCH (12:52)
[2020-09-25] MEDS: Levofloxacin/Dextrose 5%-Water 500 MG in Premix Bag 1 BAG IV SCH (12:52)
[2020-09-26] MEDS: Apixaban 5 MG Tab PO SCH ×2 (07:34→19:45)
[2020-09-26 07:42] LABS: CHLORIDE,CL 103 mEq/L (98-106); SODIUM,NA 137 mEq/L (136-145)
--- NOTE | 2020-09-26 09:03 | PCM.PN ---
- General Info Date of Service: 09/26/20 Admission Dx/Problem (Free Text): Bilateral Pneumonia Fall at home Laceration of right eyebrow Syncope Subjective Update: Nathalia reports she is feeling improved this morning. Less chest tightness and cough. Cough has been less productive. Has been unable to get a sputum sample. VS have remained stable. Has not been very motivated to get out of bed. Has only been ambulating to the bathroom and back to bed. SHe has not had any dizzy spells while here. Telemetry has remained NSR. She offers no other complaints this morning. Functional Status: Reports: Pain Controlled, Tolerating Diet, Ambulating, Urinating. Denies: New Symptoms - Review of Systems General: Reports: Weakness, Fatigue. Denies: Fever, Malaise, Chills HEENT: Reports: No Symptoms Pulmonary: Reports: Shortness of Breath, Cough (rare). Denies: Pleuritic Chest Pain, Sputum, Hemoptysis, Wheezing Cardiovascular: Reports: Dyspnea on Exertion. Denies: Chest Pain, Edema Gastrointestinal: Reports: No Symptoms. Denies: Abdominal Pain, Decreased Appetite, Diarrhea, Nausea, Vomiting Genitourinary: Reports: No Symptoms Musculoskeletal: Reports: Back Pain Skin: Reports: No Symptoms Neurological: Reports: No Symptoms - Patient Data Vitals - Most Recent: Last Vital Signs Temp 97.4 F 09/26/20 08:00 Pulse 58 L 09/26/20 08:00 Resp 16 09/26/20 08:00 BP 139/58 L 09/26/20 08:00 Pulse Ox 96 09/26/20 08:00 Weight - Most Recent: 125 lb 8 oz Lab Results Last 24 Hours: Laboratory Results - last 24 hr 09/26/20 09/26/20 Range/Units 07:00 07:20 WBC 16.9 H (5.0-10.0) 10^3/uL RBC 4.18 (4.00-5.50) 10^6/uL Hgb 13.2 (12.0-16.0) g/dL Hct 40.6 (37.0-47.0) % MCV 97.1 H (82.0-94.0) fL MCH 31.6 (27.0-32.0) pg MCHC 32.5 L (33.0-38.0) g/dL RDW Coeff of Zan 13.8 (11.0-15.0) % Plt Count 250 (150-400) 10^3/uL Neut % (Auto) 85.4 H (35-85) % Lymph % (Auto) 5.1 L (10-55) % [place] % (Auto) 9.4 (0-16) % Eos % (Auto) 0 (0-5) % Baso % (Auto) 0.1 (0-3) % Neut # (Auto) 14.40 H (1.80-7.00) 10^3/uL Lymph # (Auto) 0.86 L (1.00-4.80) 10^3/uL [place] # (Auto) 1.58 H (0.00-0.80) 10^3/uL Eos # (Auto) 0.00 (0.00-0.45) 10^3/uL Baso # (Auto) 0.01 10^3/uL Sodium 137 (136-145) mEq/L Potassium 4.1 (3.5-5.0) mEq/L Chloride 103 (98-106) mEq/L Carbon Dioxide 23 (21-32) mmol/L BUN 20 H (7-18) mg/dL Creatinine 1.1 H (0.6-1.0) mg/dL Est Cr Clr Drug Dosing 31.19 mL/min Estimated GFR (MDRD) 48 L (>=60) mL/min Glucose 103 H (75-99) mg/dL Calcium 8.9 (8.4-10.1) mg/dL C-Reactive Protein < 0.2 L (0.2-0.8) mg/dL Med Orders - Current: Current Medications Acetaminophen (Tylenol) 650 mg PO Q4H PRN PRN Reason: Pain Apixaban (Eliquis) 2.5 mg PO BID [facility] Last Admin: 09/26/20 07:34 Dose: 2.5 mg Documented by: Atorvastatin Calcium (Lipitor) 20 mg PO WITHLUNCH [facility] Last Admin: 09/25/20 11:55 Dose: 20 mg Documented by: Docusate Sodium (Colace) 100 mg PO BEDTIME PRN PRN Reason: Constipation Levofloxacin/Dextrose 500 mg/ (Premix) 100 mls @ 100 mls/hr IV Q24H [facility] Last Admin: 09/25/20 12:52 Dose: 100 mls/hr Documented by: Magnesium Oxide (Magnesium Oxide) 250 mg PO DAILY [facility] Last Admin: 09/26/20 07:34 Dose: 250 mg Documented by: Methylprednisolone Sodium Succinate (Solu-Medrol) 62.5 mg IVPUSH Q24H [facility] Last Admin: 09/25/20 12:52 Dose: 62.5 mg Documented by: Metoprolol Succinate (Toprol Xl) 25 mg PO WITHLUNCH [facility] Last Admin: 09/25/20 11:55 Dose: 25 mg Documented by: Pantoprazole Sodium (Protonix) 40 mg PO DAILY PRN PRN Reason: Heartburn Sodium Chloride (Saline Flush) 10 ml FLUSH ASDIRECTED PRN PRN Reason: Keep Vein Open Discontinued Medications Aspirin (Aspirin) 324 mg PO ONETIME ONE Stop: 09/24/20 08:47 Last Admin: 09/24/20 09:00 Dose: 324 mg Documented by: Diphtheria/Tetanus/Acell Pertussis (Adacel) 0.5 ml IM .ONCE ONE Stop: 09/24/20 09:35 Last Admin: 09/24/20 10:00 Dose: 0.5 ml Documented by: Dextrose/Sodium Chloride (Dextrose 5%-1/2 Ns) 1,000 mls @ 50 mls/hr IV ASDIRECTED [facility] Last Admin: 09/24/20 14:54 Dose: 50 mls/hr Documented by: Iopamidol (Isovue-370 (76%)) 100 ml IVPUSH ONETIME ONE Stop: 09/24/20 10:29 Last Admin: 09/24/20 10:57 Dose: 100 ml Documented by: Lidocaine HCl (Xylocaine-Mpf 1%) 5 ml INJECT ONETIME ONE Stop: 09/24/20 10:21 Last Admin: 09/24/20 10:35 Dose: 5 ml Documented by: Non-Formulary Medication (Lutein [Lutein]) 20 mg PO DAILY [facility] - Exam Quality Assessment: DVT Prophylaxis. No: Supplemental Oxygen General: Alert, Oriented, No Acute Distress Neck: Supple Lungs: Clear to Auscultation, Normal Respiratory Effort, Decreased Breath Sounds Cardiovascular: Regular Rate, Regular Rhythm GI/Abdominal Exam: Normal Bowel Sounds, Soft, Non-Tender, No Organomegaly, No Distention, No Abnormal Bruit, No Mass, Pelvis Stable Back Exam: Normal Inspection, Full Range of Motion Extremities: Normal Inspection, Normal Range of Motion, Non-Tender, No Pedal Edema, Normal Capillary Refill Skin: Other (laceration with sutures to right eyebrow- CDI, scattered ecchymosis, skin tear right forearm) Neurological: No New Focal Deficit Psy/Mental Status: Alert, Normal Affect, Normal Mood Sepsis Event Note - Evaluation Sepsis Screening Result: No Definite Risk - Focused Exam Vital Signs: Vital Signs Temp Pulse Resp BP Pulse Ox 09/26/20 08:00 97.4 F 58 L 16 139/58 L 96 09/26/20 04:00 97.4 F 57 L 18 142/63 H 94 L 09/26/20 00:00 96.2 F L 60 18 131/59 L 94 L - Problem List & Annotations (1) Pneumonia SNOMED Code(s): 958225995 Code(s): J18.9 - PNEUMONIA, UNSPECIFIED ORGANISM Status: Acute Priority: High Current Visit: Yes Qualifiers: Pneumonia type: due to unspecified organism Laterality: bilateral Lung location: unspecified part of lung Qualified Code(s): J18.9 - Pneumonia, unspecified organism (2) Fall at home SNOMED Code(s): 87103826 Code(s): W19.XXXA - UNSPECIFIED FALL, INITIAL ENCOUNTER; Y92.009 - UNSP PLACE IN UNSP NON-INSTITUT (PRIVATE) RESIDENCE PLACE Status: Acute Priority: Low Current Visit: Yes Qualifiers: Encounter type: initial encounter Qualified Code(s): W19.XXXA - Unspecified fall, initial encounter; Y92.009 - Unspecified place in unspecified non- institutional (private) residence as the place of occurrence of the external cause (3) Laceration SNOMED Code(s): 150509646 Code(s): KPH8229 - Status: Acute Priority: Low Current Visit: Yes (4) Syncope SNOMED Code(s): 092895802 Code(s): R55 - SYNCOPE AND COLLAPSE Status: Acute Priority: High Current Visit: No - Problem List Review Problem List Initiated/Reviewed/Updated: Yes - My Orders Last 24 Hours: My Active Orders 09/25/20 11:25 CULTURE SPUTUM + SMEAR [RM] Routine - Assessment Assessment:: Bilateral Pneumonia Syncope Fall at Home Laceration - Plan Plan:: Patient continue to do well. Has rare cough. Has not been productive so have been unable to obtain sputum sample. Has chronic SOB, worse with exertion. No chest pain today. VS remain stable. O2 sats 94% on RA. Lungs sounds clear. No near syncope/syncopal episodes since admission. Has not had any dizzy spells. Tele remains NSR. WBC elevated to 16.9, probably steroid induced leukocytosis. Creatinine 1.1. CRP WNL. Labs otherwise stable. Encourage activity. Has not been motived to ambulate. PT consult for balance assessment. Continue with IV Levaquin and SoluMedrol at this time. Repeat labs in am. Anticipate discharge home tomorrow on oral antibiotics.
[2020-09-26] MEDS: atorvaSTATin 20 MG Tab PO SCH (12:08)
[2020-09-26] MEDS: Metoprolol Succinate 25 MG Tab.ER PO SCH (12:08)
[2020-09-26] MEDS: methylPREDNISolone Sodium Succinate 125 MG/2 ML SDV IVPUSH SCH (13:57)
[2020-09-26] MEDS: Levofloxacin/Dextrose 5%-Water 500 MG in Premix Bag 1 BAG IV SCH (14:03)
[2020-09-27 07:36] LABS: CHLORIDE,CL 103 mEq/L (98-106); SODIUM,NA 137 mEq/L (136-145)
[2020-09-27] MEDS: Apixaban 5 MG Tab PO SCH ×2 (08:03→19:13)
[2020-09-27] MEDS: Metoprolol Succinate 25 MG Tab.ER PO SCH (11:32)
[2020-09-27] MEDS: atorvaSTATin 20 MG Tab PO SCH (11:32)
[2020-09-27] MEDS: Levofloxacin/Dextrose 5%-Water 500 MG in Premix Bag 1 BAG IV SCH (12:30)
[2020-09-27] MEDS: methylPREDNISolone Sodium Succinate 125 MG/2 ML SDV IVPUSH SCH (12:30)
--- NOTE | 2020-09-27 13:10 | PCM.PN ---
- General Info Date of Service: 09/27/20 Admission Dx/Problem (Free Text): Bilateral Pneumonia Fall at home Laceration of right eyebrow Syncope Subjective Update: Nathalia reports she is feeling improved this morning. Less chest tightness and cough. Cough has been less productive. Has been unable to get a sputum sample. VS have remained stable. Has not been very motivated to get out of bed. Has only been ambulating to the bathroom and back to bed. SHe has not had any dizzy spells while here. Telemetry has remained NSR. She offers no other complaints this morning. Nathalia states she is feeling okay this morning. States she feels she is continuously improving daily since admit. Has been up ambulating to the bathroom without difficulty. States she hasn't had any further dizziness or syncope during her stay. No current concerns. - Review of Systems General: Reports: Fatigue. Denies: Fever, Weakness HEENT: Reports: No Symptoms Pulmonary: Reports: Cough, Sputum. Denies: Shortness of Breath Cardiovascular: Reports: Other (chest pressure) Gastrointestinal: Reports: No Symptoms Genitourinary: Reports: No Symptoms Musculoskeletal: Reports: No Symptoms Neurological: Reports: No Symptoms Psychiatric: Reports: No Symptoms - Patient Data Vitals - Most Recent: Last Vital Signs Temp 98.2 F 09/27/20 11:32 Pulse 75 09/27/20 11:32 Resp 18 09/27/20 11:32 BP 112/56 L 09/27/20 11:32 Pulse Ox 95 09/27/20 11:32 Weight - Most Recent: 125 lb 8 oz I&O - Last 24 Hours: Intake & Output 09/26/20 09/27/20 09/27/20 22:59 06:59 14:59 Intake Total 100 Balance 100 Lab Results Last 24 Hours: Laboratory Results - last 24 hr 09/27/20 09/27/20 Range/Units 07:00 07:00 WBC 12.6 H (5.0-10.0) 10^3/uL RBC 4.13 (4.00-5.50) 10^6/uL Hgb 13.1 (12.0-16.0) g/dL Hct 39.9 (37.0-47.0) % MCV 96.6 H (82.0-94.0) fL MCH 31.7 (27.0-32.0) pg MCHC 32.8 L (33.0-38.0) g/dL RDW Coeff of Zan 13.7 (11.0-15.0) % Plt Count 255 (150-400) 10^3/uL Neut % (Auto) 86.3 H (35-85) % Lymph % (Auto) 6.3 L (10-55) % [place] % (Auto) 7.3 (0-16) % Eos % (Auto) 0 (0-5) % Baso % (Auto) 0.1 (0-3) % Neut # (Auto) 10.89 H (1.80-7.00) 10^3/uL Lymph # (Auto) 0.79 L (1.00-4.80) 10^3/uL [place] # (Auto) 0.92 H (0.00-0.80) 10^3/uL Eos # (Auto) 0.00 (0.00-0.45) 10^3/uL Baso # (Auto) 0.01 10^3/uL Sodium 137 (136-145) mEq/L Potassium 4.5 (3.5-5.0) mEq/L Chloride 103 (98-106) mEq/L Carbon Dioxide 26 (21-32) mmol/L BUN 23 H (7-18) mg/dL Creatinine 1.2 H (0.6-1.0) mg/dL Est Cr Clr Drug Dosing 28.59 mL/min Estimated GFR (MDRD) 43 L (>=60) mL/min Glucose 104 H (75-99) mg/dL Calcium 8.7 (8.4-10.1) mg/dL C-Reactive Protein < 0.2 L (0.2-0.8) mg/dL Med Orders - Current: Current Medications Acetaminophen (Tylenol) 650 mg PO Q4H PRN PRN Reason: Pain Apixaban (Eliquis) 2.5 mg PO BID [facility] Last Admin: 09/27/20 08:03 Dose: 2.5 mg Documented by: Atorvastatin Calcium (Lipitor) 20 mg PO WITHLUNCH [facility] Last Admin: 09/27/20 11:32 Dose: 20 mg Documented by: Docusate Sodium (Colace) 100 mg PO BEDTIME PRN PRN Reason: Constipation Levofloxacin/Dextrose 500 mg/ (Premix) 100 mls @ 100 mls/hr IV Q24H [facility] Last Admin: 09/27/20 12:30 Dose: 100 mls/hr Documented by: Magnesium Oxide (Magnesium Oxide) 250 mg PO DAILY [facility] Last Admin: 09/27/20 08:03 Dose: 250 mg Documented by: Methylprednisolone Sodium Succinate (Solu-Medrol) 62.5 mg IVPUSH Q24H [facility] Last Admin: 09/27/20 12:30 Dose: 62.5 mg Documented by: Metoprolol Succinate (Toprol Xl) 25 mg PO WITHLUNCH [facility] Last Admin: 09/27/20 11:32 Dose: 25 mg Documented by: Pantoprazole Sodium (Protonix) 40 mg PO DAILY PRN PRN Reason: Heartburn Sodium Chloride (Saline Flush) 10 ml FLUSH ASDIRECTED PRN PRN Reason: Keep Vein Open Discontinued Medications Aspirin (Aspirin) 324 mg PO ONETIME ONE Stop: 09/24/20 08:47 Last Admin: 09/24/20 09:00 Dose: 324 mg Documented by: Diphtheria/Tetanus/Acell Pertussis (Adacel) 0.5 ml IM .ONCE ONE Stop: 09/24/20 09:35 Last Admin: 09/24/20 10:00 Dose: 0.5 ml Documented by: Dextrose/Sodium Chloride (Dextrose 5%-1/2 Ns) 1,000 mls @ 50 mls/hr IV ASDIRECTED [facility] Last Admin: 09/24/20 14:54 Dose: 50 mls/hr Documented by: Iopamidol (Isovue-370 (76%)) 100 ml IVPUSH ONETIME ONE Stop: 09/24/20 10:29 Last Admin: 09/24/20 10:57 Dose: 100 ml Documented by: Lidocaine HCl (Xylocaine-Mpf 1%) 5 ml INJECT ONETIME ONE Stop: 09/24/20 10:21 Last Admin: 09/24/20 10:35 Dose: 5 ml Documented by: Non-Formulary Medication (Lutein [Lutein]) 20 mg PO DAILY [facility] - Exam General: Alert, Oriented, Cooperative, No Acute Distress Lungs: Clear to Auscultation, Normal Respiratory Effort Cardiovascular: Regular Rate, Murmurs GI/Abdominal Exam: Normal Bowel Sounds, Soft Extremities: Normal Inspection, No Pedal Edema Skin: Warm, Dry, Intact Neurological: No New Focal Deficit Psy/Mental Status: Alert, Normal Affect, Normal Mood Sepsis Event Note - Evaluation Sepsis Screening Result: No Definite Risk - Focused Exam Vital Signs: Vital Signs Temp Pulse Pulse Resp BP BP Pulse Ox 09/27/20 11:32 98.2 F 75 75 18 112/56 L 112/56 L 95 09/27/20 08:00 98 F 94 18 138/68 95 09/27/20 04:00 97.5 F 56 L 18 149/58 H 97 - Problem List & Annotations (1) Fall at home SNOMED Code(s): 92823953 Code(s): W19.XXXA - UNSPECIFIED FALL, INITIAL ENCOUNTER; Y92.009 - UNSP PLACE IN UNSP NON-INSTITUT (PRIVATE) RESIDENCE PLACE Status: Acute Priority: Low Current Visit: Yes Qualifiers: Encounter type: initial encounter Qualified Code(s): W19.XXXA - Unspecified fall, initial encounter; Y92.009 - Unspecified place in unspecified non-insti tutional (private) residence as the place of occurrence of the external cause (2) Laceration SNOMED Code(s): 440805506 Code(s): FWP3913 - Status: Acute Priority: Low Current Visit: Yes (3) Pneumonia SNOMED Code(s): 345758591 Code(s): J18.9 - PNEUMONIA, UNSPECIFIED ORGANISM Status: Acute Priority: High Current Visit: Yes Qualifiers: Pneumonia type: due to unspecified organism Laterality: bilateral Lung location: unspecified part of lung Qualified Code(s): J18.9 - Pneumonia, unspecified organism - Problem List Review Problem List Initiated/Reviewed/Updated: Yes - Assessment Assessment:: Bilateral Pneumonia Syncope Fall at Home Laceration - Plan Plan:: Patient continue to do well. Has rare cough. Has not been productive so have been unable to obtain sputum sample. Has chronic SOB, worse with exertion. No chest pain today. VS remain stable. O2 sats 94% on RA. Lungs sounds clear. No near syncope/syncopal episodes since admission. Has not had any dizzy spells. Tele remains NSR. WBC elevated to 16.9, probably steroid induced leukocytosis. Creatinine 1.1. CRP WNL. Labs otherwise stable. Encourage activity. Has not been motived to ambulate. PT consult for balance assessment. Continue with IV Levaquin and SoluMedrol at this time. Repeat labs in am. Anticipate discharge home tomorrow on oral antibiotics. 09/27/2020 Patient has shown improvement since admission. Laboratory work continues to improve. WBC is 12.9. CRP unremarkable. Creatinine stable at 1.2. Will continue with IV Levaquin today. Will d/c Solumedrol. PT was in to see her yesterday and gave home exercises. Will ambulate today and see how well she is walking. Repeat labs in am and anticipate discharge tomorrow. Vital signs are stable.
[2020-09-28] MEDS: Apixaban 5 MG Tab PO SCH (07:32)
[2020-09-28 07:38] LABS: CHLORIDE,CL 103 mEq/L (98-106); SODIUM,NA 136 mEq/L (136-145)
[2020-09-28] MEDS: atorvaSTATin 20 MG Tab PO SCH (12:03)
[2020-09-28] MEDS: Metoprolol Succinate 25 MG Tab.ER PO SCH (12:04)
--- NOTE | 2020-09-28 12:40 | PCM.DCSUM1 ---
Discharge Summary - Hospital Course HPI Initial Comments: Nathalia is an 84 year old female who was admitted to the hospital from the ED with bilateral pneumonia. Apparently had been having weakness and syncopal episodes for some time now. Fell and hit eye on table causing laceration and was unable to get up so EMS was called. Was found to have elevated D-dimer. Had chest CTA which revealed bilateral infiltrates. Was admitted and started on IV antibiotics. Prior tobacco use, but quit smoking 1 year ago. Has history of Diagnosis: Stroke: No - Discharge Data Discharge Date: 09/28/20 Discharge Disposition: Home, Self-Care 01 Condition: Good - Referral to Home Health Primary Care Physician: Anna Magana PA-C - Discharge Diagnosis/Problem(s) (1) Fall at home SNOMED Code(s): 25795744 ICD Code: W19.XXXA - UNSPECIFIED FALL, INITIAL ENCOUNTER; Y92.009 - UNSP PLACE IN UNSP NON-INSTITUT (PRIVATE) RESIDENCE PLACE Status: Acute Priority: Low Current Visit: Yes Qualifiers: Encounter type: initial encounter Qualified Code(s): W19.XXXA - Unspecified fall, initial encounter; Y92.009 - Unspecified place in unspecified non- institutional (private) residence as the place of occurrence of the external cause (2) Laceration SNOMED Code(s): 101735989 ICD Code: [id number] - Status: Acute Priority: Low Current Visit: Yes (3) Pneumonia SNOMED Code(s): 223700034 ICD Code: J18.9 - PNEUMONIA, UNSPECIFIED ORGANISM Status: Acute Priority: High Current Visit: Yes Qualifiers: Pneumonia type: due to unspecified organism Laterality: bilateral Lung location: unspecified part of lung Qualified Code(s): J18.9 - Pneumonia, unspecified organism - Patient Summary/Data Consults: Consultations 09/26/20 09:08 Consult to Physical Therapy [PT Evaluation and Treatment] [CONS] Routine - Patient Instructions Diet: Usual Diet as Tolerated Activity: As Tolerated Activity, Other: Encourage using walker when ambulating Showering/Bathing: May Shower - Discharge Plan *PRESCRIPTION DRUG MONITORING PROGRAM REVIEWED*: Not Applicable *COPY OF PRESCRIPTION DRUG MONITORING REPORT IN PATIENT JULIA: Not Applicable Prescriptions/Med Rec: Levofloxacin [Levaquin] 500 mg PO DAILY #7 tablet Home Medications: Home Meds Cholecalciferol (Vitamin D3) [Vitamin D3] 5,000 unit PO DAILY 02/01/15 [History] Docusate Sodium [Colace] 100 mg PO BEDTIME PRN 02/01/15 [History] Lutein 20 mg PO DAILY 02/01/15 [History] Magnesium 250 mg PO DAILY 02/01/15 [History] Vitamin B Complex [B Complex] 1 each PO DAILY 02/01/15 [History] Vitamin E 400 unit PO DAILY 02/01/15 [History] atorvaSTATin [Lipitor] 20 mg PO WITHLUNCH 02/01/15 [History] Meclizine HCl 25 mg PO Q8HR PRN 08/14/16 [History] Calcium Carbonate [Calcium] 600 mg PO BID 10/18/17 [History] Apixaban [Eliquis] 2.5 mg PO BID 07/31/20 [History] Metoprolol Succinate [Toprol XL] 25 mg PO WITHLUNCH 07/31/20 [History] Omeprazole Magnesium [Prilosec Otc] 20 mg PO DAILY PRN 09/24/20 [History] Levofloxacin [Levaquin] 500 mg PO DAILY #7 tablet 09/28/20 [Rx] Forms: ED Department Discharge Referrals: Edna Koehler PA [ED Midlevel Provider] - 10/03/20 (Follow up labs and suture removal) - Discharge Summary/Plan Comment DC Time >30 min.: Yes Discharge Summary/Plan Comment: Patient's labs have been stable during her stay. Discussed home health consult, which Nathalia declined at this time. Feels as if she can be independent at home. lives with her and helps her out as well. Discussed into detail orthostatic hypotension, dizziness, meclizine use. Advise slowly getting up from seated and lying positions. Waiting for a few minutes before getting up completely. Patient will be discharged with oral Levaquin. Will need follow up with Madison Koehler, primary provider, next week Thursday for suture removal and follow up labs. Nathalia verbalized understanding. She feels safe at home at this time. - General Info Date of Service: 09/28/20 Subjective Update: Nathalia states she is feeling okay this morning. States she feels she is continuously improving daily since admit. Has been up ambulating to the bathroom without difficulty. States she hasn't had any further dizziness or syncope during her stay. No current concerns. Functional Status: Reports: Tolerating Diet, Ambulating, Urinating - Review of Systems General: Reports: No Symptoms HEENT: Reports: No Symptoms Pulmonary: Reports: Cough, Sputum. Denies: Shortness of Breath, Wheezing Cardiovascular: Reports: No Symptoms. Denies: Chest Pain Gastrointestinal: Reports: No Symptoms Genitourinary: Reports: No Symptoms Musculoskeletal: Reports: No Symptoms Neurological: Reports: No Symptoms - Patient Data Vitals - Most Recent: Last Vital Signs Temp 96.9 F 09/28/20 12:00 Pulse 67 09/28/20 12:04 Resp 20 09/28/20 12:00 BP 129/70 09/28/20 12:04 Pulse Ox 93 L 09/28/20 12:00 Weight - Most Recent: 125 lb 8 oz Lab Results - Last 24 hrs: Laboratory Results - last 24 hr 09/28/20 09/28/20 Range/Units 06:55 06:55 WBC 12.2 H (5.0-10.0) 10^3/uL RBC 4.19 (4.00-5.50) 10^6/uL Hgb 13.4 (12.0-16.0) g/dL Hct 40.4 (37.0-47.0) % MCV 96.4 H (82.0-94.0) fL MCH 32.0 (27.0-32.0) pg MCHC 33.2 (33.0-38.0) g/dL RDW Coeff of Zan 13.6 (11.0-15.0) % Plt Count 248 (150-400) 10^3/uL Neut % (Auto) 82.0 (35-85) % Lymph % (Auto) 8.8 L (10-55) % [place] % (Auto) 9.2 (0-16) % Eos % (Auto) 0 (0-5) % Baso % (Auto) 0 (0-3) % Neut # (Auto) 9.99 H (1.80-7.00) 10^3/uL Lymph # (Auto) 1.07 (1.00-4.80) 10^3/uL [place] # (Auto) 1.12 H (0.00-0.80) 10^3/uL Eos # (Auto) 0.00 (0.00-0.45) 10^3/uL Baso # (Auto) 0.00 10^3/uL Sodium 136 (136-145) mEq/L Potassium 4.5 (3.5-5.0) mEq/L Chloride 103 (98-106) mEq/L Carbon Dioxide 26 (21-32) mmol/L BUN 23 H (7-18) mg/dL Creatinine 1.2 H (0.6-1.0) mg/dL Est Cr Clr Drug Dosing 28.59 mL/min Estimated GFR (MDRD) 43 L (>=60) mL/min Glucose 95 (75-99) mg/dL Calcium 8.7 (8.4-10.1) mg/dL C-Reactive Protein < 0.2 L (0.2-0.8) mg/dL Med Orders - Current: Current Medications Acetaminophen (Tylenol) 650 mg PO Q4H PRN PRN Reason: Pain Apixaban (Eliquis) 2.5 mg PO BID [facility] Last Admin: 09/28/20 07:32 Dose: 2.5 mg Documented by: Atorvastatin Calcium (Lipitor) 20 mg PO WITHLUNCH [facility] Last Admin: 09/28/20 12:03 Dose: 20 mg Documented by: Docusate Sodium (Colace) 100 mg PO BEDTIME PRN PRN Reason: Constipation Levofloxacin/Dextrose 500 mg/ (Premix) 100 mls @ 100 mls/hr IV Q24H [facility] Last Admin: 09/27/20 12:30 Dose: 100 mls/hr Documented by: Magnesium Oxide (Magnesium Oxide) 250 mg PO DAILY [facility] Last Admin: 09/28/20 07:33 Dose: 250 mg Documented by: Methylprednisolone Sodium Succinate (Solu-Medrol) 62.5 mg IVPUSH Q24H [facility] Last Admin: 09/27/20 12:30 Dose: 62.5 mg Documented by: Metoprolol Succinate (Toprol Xl) 25 mg PO WITHLUNCH [facility] Last Admin: 09/28/20 12:04 Dose: 25 mg Documented by: Pantoprazole Sodium (Protonix) 40 mg PO DAILY PRN PRN Reason: Heartburn Sodium Chloride (Saline Flush) 10 ml FLUSH ASDIRECTED PRN PRN Reason: Keep Vein Open Discontinued Medications Aspirin (Aspirin) 324 mg PO ONETIME ONE Stop: 12/14/20 08:47 Last Admin: 09/24/20 09:00 Dose: 324 mg Documented by: Diphtheria/Tetanus/Acell Pertussis (Adacel) 0.5 ml IM .ONCE ONE Stop: 09/24/20 09:35 Last Admin: 09/24/20 10:00 Dose: 0.5 ml Documented by: Dextrose/Sodium Chloride (Dextrose 5%-1/2 Ns) 1,000 mls @ 50 mls/hr IV ASDIRECTED [facility] Last Admin: 09/24/20 14:54 Dose: 50 mls/hr Documented by: Iopamidol (Isovue-370 (76%)) 100 ml IVPUSH ONETIME ONE Stop: 09/24/20 10:29 Last Admin: 09/24/20 10:57 Dose: 100 ml Documented by: Lidocaine HCl (Xylocaine-Mpf 1%) 5 ml INJECT ONETIME ONE Stop: 09/24/20 10:21 Last Admin: 09/24/20 10:35 Dose: 5 ml Documented by: Non-Formulary Medication (Lutein [Lutein]) 20 mg PO DAILY [facility] - Exam General: Reports: Alert, Oriented, Cooperative, No Acute Distress HEENT: Reports: Pupils Equal, Other (ecchymosis to right periorbital region. ) Neck: Reports: Supple Lungs: Reports: Clear to Auscultation, Normal Respiratory Effort Cardiovascular: Reports: Regular Rate, Regular Rhythm GI/Abdominal Exam: Normal Bowel Sounds, Soft, No Distention Extremities: Normal Inspection, No Pedal Edema Skin: Reports: Warm, Dry, Ecchymosis (with healing laceration to left forehead. Sutures intact. No drainage. No signs of infection. ) Psy/Mental Status: Reports: Alert, Normal Affect, Normal Mood
[2020-09-28] MEDS: Levofloxacin/Dextrose 5%-Water 500 MG in Premix Bag 1 BAG IV SCH (13:11)
[2020-09-28] MEDS: methylPREDNISolone Sodium Succinate 125 MG/2 ML SDV IVPUSH SCH (13:23)
[2020-09-28 13:39] VITALS: BP 129/70; PULSE 60
== END 2020-09-28 14:15 | disposition home or self-care (01) | DRG 195 ==
LOC: CC.ED 08:26 → UNDOADMIN 11:56 → CC.MS 11:56
PROVIDERS: ADMIT Physician Assistant Medical; ATTEND Family Medicine
DX: J18.9 Pneumonia, unspecified organism (principal); S09.90XA Unspecified injury of head, initial encounter; S01.81XA Laceration without foreign body of other part of head, initial encounter; W19.XXXA Unspecified fall, initial encounter; J30.9 Allergic rhinitis, unspecified; I48.91 Unspecified atrial fibrillation; E78.00 Pure hypercholesterolemia, unspecified; M81.0 Age-related osteoporosis without current pathological fracture; R42 Dizziness and giddiness; R55 Syncope and collapse; T38.0X5A Adverse effect of glucocorticoids and synthetic analogues, initial encounter; S01.111A Laceration without foreign body of right eyelid and periocular area, initial encounter; J44.0 Chronic obstructive pulmonary disease with (acute) lower respiratory infection; K59.09 Other constipation; K21.9 Gastro-esophageal reflux disease without esophagitis; Z88.6 Allergy status to analgesic agent; Z87.891 Personal history of nicotine dependence; Z90.49 Acquired absence of other specified parts of digestive tract; W01.10XA Fall on same level from slipping, tripping and stumbling with subsequent striking against unspecified object, initial encounter; Y92.009 Unspecified place in unspecified non-institutional (private) residence as the place of occurrence of the external cause; Z79.01 Long term (current) use of anticoagulants; Z79.899 Other long term (current) drug therapy; Z88.5 Allergy status to narcotic agent; Z88.8 Allergy status to other drugs, medicaments and biological substances; Z20.828 Contact with and (suspected) exposure to other viral communicable diseases
CPT/HCPCS: 12011; 36415; 70450; 71045; 71275; 80048; 80053; 81001; 82150; 82550; 83615; 83690; 84484; 85025; 85379; 85610; 86140; 87804; 90471; 90715; 93005; 93010; 97110-GP; 97161-GP; 99285-25; A9270-GY; J1956; J2001; J2930; J7042; Q9967; U0002

== ENCOUNTER 2022-11-24 17:50 | Observation (INO) | payer MEDICARE, OTHER ==
[2022-11-24] MEDS: Sodium Chloride 0.9% 1,000 ML IV SCH (18:56)
[2022-11-24] MEDS ORDERED: Docusate Sodium 100 MG Cap PO PRN (19:37)
[2022-11-24] MEDS ORDERED: Pantoprazole 40 MG Tab.CR PO PRN (19:37)
[2022-11-24] MEDS ORDERED: Ondansetron 4 MG Tab.DIS PO PRN (20:03)
[2022-11-24] MEDS ORDERED: Ondansetron 4 MG/2 ML SDV IV PRN (20:03)
[2022-11-24] MEDS: Calcium Carbonate 500 MG Tab.Chew PO SCH (20:33)
[2022-11-25] MEDS: Sodium Chloride 0.9% 1,000 ML IV SCH (06:06)
[2022-11-25] MEDS: Cholecalciferol (Vitamin D3) 5,000 UNIT Tab PO SCH (07:16)
[2022-11-25] MEDS: Meclizine 12.5 MG Tab PO PRN ×2 (07:16→19:24)
[2022-11-25] MEDS: Calcium Carbonate 500 MG Tab.Chew PO SCH ×2 (07:17→19:21)
[2022-11-25] MEDS: Vitamin E (dl-alpha-tocopherol acetate) 400 Unit Cap PO SCH (07:17)
[2022-11-25] MEDS: Vitamin B Complex Cap PO SCH (07:17)
[2022-11-25] MEDS ORDERED: Lutein [Lutein] 20 MG Capsule PO SCH (08:00)
[2022-11-25] MEDS: Acetaminophen 325 MG Tab PO PRN ×2 (10:58→19:26)
[2022-11-25] MEDS: Metoprolol Succinate 25 MG Tab.ER **PTOM PO SCH (11:33)
[2022-11-26] MEDS: Vitamin E (dl-alpha-tocopherol acetate) 400 Unit Cap PO SCH (07:52)
[2022-11-26] MEDS: Cholecalciferol (Vitamin D3) 5,000 UNIT Tab PO SCH (07:52)
[2022-11-26] MEDS: Vitamin B Complex Cap PO SCH (07:52)
[2022-11-26] MEDS: Calcium Carbonate 500 MG Tab.Chew PO SCH (07:53)
[2022-11-26] MEDS: Meclizine 12.5 MG Tab PO PRN (09:30)
[2022-11-26] MEDS: Metoprolol Succinate 25 MG Tab.ER **PTOM PO SCH (11:32)
[2022-11-26 14:25] VITALS: BP 120/62; PULSE 53
== END 2022-11-26 13:35 | disposition home or self-care (01) ==
LOC: CC.ED 17:50 → CC.MS 19:30 → UNDOADMOB 19:44 → CC.MS 19:44
PROVIDERS: ADMIT Nurse Practitioner Family; ATTEND Nurse Practitioner Family
DX: R55 Syncope and collapse (principal); E87.1 Hypo-osmolality and hyponatremia; I48.91 Unspecified atrial fibrillation; K21.9 Gastro-esophageal reflux disease without esophagitis; N18.9 Chronic kidney disease, unspecified; J44.9 Chronic obstructive pulmonary disease, unspecified; E78.00 Pure hypercholesterolemia, unspecified; M81.0 Age-related osteoporosis without current pathological fracture; Z88.5 Allergy status to narcotic agent; Z88.8 Allergy status to other drugs, medicaments and biological substances; Z79.01 Long term (current) use of anticoagulants; Z79.899 Other long term (current) drug therapy; W18.30XA Fall on same level, unspecified, initial encounter; Y92.002 Bathroom of unspecified non-institutional (private) residence as the place of occurrence of the external cause
CPT/HCPCS: 36415; 70450; 71045; 72125; 73080-LT; 80048; 80053; 81001; 82550; 83735; 84484; 85025; 93005; 93010; 97110-GP; 97161-GP; 99223; 99232; 99238; 99285; A9270-GY; G0378; J7030

== ENCOUNTER 2024-04-12 18:52 | Observation (INO) | payer MEDICARE, OTHER ==
[2024-04-12 19:19] LABS: BASOPHILS ABSOLUTE AUTO 0.04 10^3/uL (0.00-0.50); BASOPHILS PERCENT AUTO 0.6 % (0-1); EOSINOPHILS ABSOLUTE AUTO 0.35 10^3/uL (0.00-1.50); EOSINOPHILS PERCENT AUTO 5.7 % (0-6); HEMATOCRIT 39.4 % (37.0-47.0); LYMPHOCYTES ABSOLUTE AUTO 1.56 10^3/uL (0.60-5.00); LYMPHOCYTES PERCENT AUTO 25.3 % (24-44); MEAN CORPUSCULAR HEMOGLOBIN 33.2 pg (27.0-32.0); MEAN CORPUSCULAR VOLUME 100.5 fL (83.0-97.0); MONOCYTES ABSOLUTE AUTO 0.96 10^3/uL (0.00-1.50); MONOCYTES PERCENT AUTO 15.6 % (0-10); NEUTROPHILS ABSOLUTE AUTO 3.25 x10^3/uL (1.80-8.00); NEUTROPHILS PERCENT AUTO 52.8 % (41-71); PLATELET COUNT,PLT 147 10^3/uL (150-400); RED BLOOD CELL COUNT 3.92 x10^6/uL (4.00-5.50); WHITE BLOOD CELL COUNT,WBC 6.2 10^3/uL (4.0-11.0)
[2024-04-12 19:30] LABS: INR 1.19 (0.92-1.18); PROTHROMBIN TIME 12.4 SEC (9.3-11.3); PTT,PARTIAL THROMBOPLSTIN TIME 29.5 SEC (20.0-30.0)
[2024-04-12 19:35] LABS: BLOOD UREA NITROGEN,BUN 21 mg/dL (7-18); CALCIUM 9.2 mg/dL (8.4-10.1); CARBON DIOXIDE,CO2 26 mmol/L (21-32); CHLORIDE,CL 101 mEq/L (98-106); CREATINE KINASE,CK 48 U/L (21-215); CREATININE 1.3 mg/dL (0.6-1.0); ESTIMATED GFR 40 mL/min (>=60); GLUCOSE RANDOM 119 mg/dL (75-99); SODIUM,NA 137 mEq/L (136-145)
[2024-04-12 19:51] LABS: APPEARANCE,URINE CLEAR (CLEAR); BILIRUBIN,URINE NEGATIVE (NEGATIVE); COLOR,URINE YELLOW (YELLOW); GLUCOSE,URINE NEGATIVE (NEGATIVE); KETONES,URINE NEGATIVE (NEGATIVE); LEUKOCYTE ESTERASE,URINE SMALL (NEGATIVE); NITRITE,URINE NEGATIVE (NEGATIVE); OCCULT BLOOD,URINE TRACE-INTACT (NEGATIVE); PROTEIN,URINE NEGATIVE (NEGATIVE); UROBILINOGEN,URINE 0.2 EU/dL (0.2-1.0)
[2024-04-12 19:56] LABS: BACTERIA,URINE OCCASIONAL /HPF (NOT SEEN); EPITHELIAL CELLS,URINE NOT SEEN /HPF (NOT SEEN); MUCUS,URINE NOT SEEN /HPF (NOT SEEN); RBC,URINE NOT SEEN /HPF (0-5); WBC,URINE 0-5 /HPF (0-5)
[2024-04-12] MEDS ORDERED: Sodium Chloride 0.9% 10 ML Syringe FLUSH PRN (20:14)
[2024-04-12] MEDS ORDERED: Ondansetron 4 MG Tab.DIS PO PRN (20:14)
[2024-04-12] MEDS ORDERED: Ondansetron 4 MG/2 ML SDV IV PRN (20:14)
[2024-04-12] MEDS ORDERED: Acetaminophen 325 MG Tab PO PRN (20:14)
[2024-04-12] MEDS ORDERED: Docusate Sodium 100 MG Cap PO PRN (20:14)
[2024-04-12] MEDS: Apixaban 5 MG Tab PO ONE (22:06)
[2024-04-12] MEDS: Sodium Chloride 0.9% 1,000 ML IV SCH (22:08)
[2024-04-12] MEDS: Meclizine 12.5 MG Tab PO PRN (22:50)
[2024-04-13] MEDS: Cholecalciferol (Vitamin D3) 5,000 UNIT Tab PO SCH (07:16)
[2024-04-13] MEDS: Magnesium Oxide 400 MG Tab PO SCH (07:16)
[2024-04-13] MEDS: Calcium Carbonate 500 MG Tab.Chew PO SCH (07:16)
[2024-04-13] MEDS: Apixaban 5 MG Tab PO SCH (07:16)
[2024-04-13] MEDS: Famotidine 20 MG Tab PO SCH (07:16)
[2024-04-13 07:17] LABS: BASOPHILS ABSOLUTE AUTO 0.04 10^3/uL (0.00-0.50); BASOPHILS PERCENT AUTO 0.7 % (0-1); EOSINOPHILS ABSOLUTE AUTO 0.34 10^3/uL (0.00-1.50); HEMATOCRIT 37.2 % (37.0-47.0); HEMOGLOBIN 12.2 g/dL (12.0-16.0); LYMPHOCYTES ABSOLUTE AUTO 1.25 10^3/uL (0.60-5.00); LYMPHOCYTES PERCENT AUTO 22.2 % (24-44); MEAN CORPUSCULAR HEMOGLOBIN 32.9 pg (27.0-32.0); MEAN CORPUSCULAR HGB CONC 32.8 g/dL (32.0-36.0); MEAN CORPUSCULAR VOLUME 100.3 fL (83.0-97.0); MONOCYTES ABSOLUTE AUTO 0.96 10^3/uL (0.00-1.50); NEUTROPHILS ABSOLUTE AUTO 3.05 x10^3/uL (1.80-8.00); NEUTROPHILS PERCENT AUTO 54.1 % (41-71); PLATELET COUNT,PLT 137 10^3/uL (150-400); RED BLOOD CELL COUNT 3.71 x10^6/uL (4.00-5.50); WHITE BLOOD CELL COUNT,WBC 5.6 10^3/uL (4.0-11.0)
[2024-04-13 07:37] LABS: ALANINE AMINOTRANSFERASE,ALT 14 U/L (12-78); ALBUMIN 2.6 g/dL (3.4-5.0); ALKALINE PHOSPHATASE 69 U/L (46-116); ASPARTATE AMNIOTRANSFERASE,AST 23 U/L (15-37); BILIRUBIN TOTAL 1.1 mg/dL (0.0-1.0); BLOOD UREA NITROGEN,BUN 15 mg/dL (7-18); CALCIUM 8.5 mg/dL (8.4-10.1); CARBON DIOXIDE,CO2 26 mmol/L (21-32); CHLORIDE,CL 106 mEq/L (98-106); CREATININE 1.1 mg/dL (0.6-1.0); GLUCOSE RANDOM 81 mg/dL (75-99); POTASSIUM,K 3.9 mEq/L (3.5-5.0); PROTEIN TOTAL,TP 5.4 g/dL (6.4-8.2); SODIUM,NA 139 mEq/L (136-145)
[2024-04-13 07:49] LABS: C-REACTIVE PROTEIN < 0.50 mg/dL (<=0.50); ESTIMATED GFR 49 mL/min (>=60)
[2024-04-13 11:02] VITALS: BP 128/68; PULSE 68
[2024-04-13] MEDS: atorvaSTATin 20 MG Tab PO SCH (13:42)
[2024-04-14] MEDS ORDERED: Beta-Carotene (Vitamin A) w/Vitamin C & E plus Minerals Tab PO SCH (08:00)
== END 2024-04-13 14:52 | disposition home or self-care (01) ==
LOC: CC.ED 18:52 → CC.MS 20:14 → UNDOADMOB 21:20
PROVIDERS: ADMIT Nurse Practitioner Family; ATTEND Nurse Practitioner Family
DX: R53.1 Weakness (principal); R68.2 Dry mouth, unspecified; K21.9 Gastro-esophageal reflux disease without esophagitis; J44.9 Chronic obstructive pulmonary disease, unspecified; E78.00 Pure hypercholesterolemia, unspecified; Z79.899 Other long term (current) drug therapy; Z79.01 Long term (current) use of anticoagulants; Z88.8 Allergy status to other drugs, medicaments and biological substances; Z88.5 Allergy status to narcotic agent
CPT/HCPCS: 36415; 70450; 80048; 80053; 81001; 82550; 84484; 85025; 85610; 85730; 86140; 97161; 99285; A9270; J7030; G0378

== ENCOUNTER 2024-10-09 11:01 | Inpatient (IN) | payer MEDICARE, OTHER ==
[2024-10-09 11:22] LABS: BASOPHILS ABSOLUTE AUTO 0.04 10^3/uL (0.00-0.50); BASOPHILS PERCENT AUTO 0.6 % (0-1); EOSINOPHILS ABSOLUTE AUTO 0.13 10^3/uL (0.00-1.50); EOSINOPHILS PERCENT AUTO 1.9 % (0-6); HEMATOCRIT 42.3 % (37.0-47.0); HEMOGLOBIN 13.8 g/dL (12.0-16.0); IMMATURE GRAN ABSOLUTE AUTO 0.01 10^3/uL (0.00-0.49); IMMATURE GRAN PERCENT AUTO 0.1 % (0.0-4.9); LYMPHOCYTES ABSOLUTE AUTO 0.55 10^3/uL (0.60-5.00); MEAN CORPUSCULAR HEMOGLOBIN 33.3 pg (27.0-32.0); MEAN CORPUSCULAR HGB CONC 32.6 g/dL (32.0-36.0); MEAN CORPUSCULAR VOLUME 101.9 fL (83.0-97.0); MONOCYTES ABSOLUTE AUTO 0.81 10^3/uL (0.00-1.50); MONOCYTES PERCENT AUTO 11.8 % (0-10); NEUTROPHILS ABSOLUTE AUTO 5.31 x10^3/uL (1.80-8.00); NEUTROPHILS PERCENT AUTO 77.6 % (41-71); PLATELET COUNT,PLT 182 10^3/uL (150-400); RED BLOOD CELL COUNT 4.15 x10^6/uL (4.00-5.50); WHITE BLOOD CELL COUNT,WBC 6.9 10^3/uL (4.0-11.0)
[2024-10-09 11:44] LABS: ALANINE AMINOTRANSFERASE,ALT 57 U/L (12-78); ALBUMIN 3.4 g/dL (3.4-5.0); ALKALINE PHOSPHATASE 90 U/L (46-116); ASPARTATE AMNIOTRANSFERASE,AST 51 U/L (15-37); BILIRUBIN TOTAL 2.2 mg/dL (0.0-1.0); BLOOD UREA NITROGEN,BUN 13 mg/dL (7-18); CALCIUM 9.9 mg/dL (8.4-10.1); CARBON DIOXIDE,CO2 29 mmol/L (21-32); CHLORIDE,CL 95 mEq/L (98-106); CREATININE 1.4 mg/dL (0.6-1.0); EST CRCL DRUG DOSING (CG) 21.77 mL/min; GLUCOSE RANDOM 111 mg/dL (75-99); MAGNESIUM 1.6 mg/dL (1.8-2.4); POTASSIUM,K 4.1 mEq/L (3.5-5.0); PRO B-TYPE NATRIUR PEPT,BNPPRO 2869 pg/mL (0-1000); PROTEIN TOTAL,TP 6.5 g/dL (6.4-8.2); SODIUM,NA 135 mEq/L (136-145)
[2024-10-09 11:45] LABS: C-REACTIVE PROTEIN < 0.50 mg/dL (<=0.50); ESTIMATED GFR 37 mL/min (>=60)
[2024-10-09] MEDS: Metoprolol Tartrate 5 MG/5 ML SDV IVPUSH ONE ×2 (12:09→18:29)
[2024-10-09] MEDS: Metoprolol Succinate 25 MG Tab.ER PO ONE (12:18)
[2024-10-09] MEDS: Furosemide 20 MG/2 ML VIAL IVPUSH SCH (12:21)
[2024-10-09] MEDS ORDERED: Acetaminophen 325 MG Tab PO PRN (12:24)
[2024-10-09] MEDS ORDERED: Pantoprazole 40 MG Tab.CR PO PRN (12:24)
[2024-10-09] MEDS ORDERED: Ondansetron 4 MG/2 ML SDV IV PRN (12:24)
[2024-10-09] MEDS ORDERED: Loratadine 10 MG Tab PO PRN (12:24)
[2024-10-09] MEDS ORDERED: Albuterol/Ipratropium 3.0-0.5 MG/3 ML Neb Soln NEB PRN (12:24)
[2024-10-09] MEDS ORDERED: Polyethylene Glycol 3350 Powder 17 GM Packet PO PRN (12:24)
[2024-10-09] MEDS ORDERED: Ondansetron 4 MG Tab.DIS PO PRN (12:24)
[2024-10-09] MEDS: Apixaban 5 MG Tab PO SCH (19:39)
[2024-10-09] MEDS: Calcium Carbonate/Vitamin D3 1250 MG-5 MCG Tab PO SCH (19:39)
[2024-10-10] MEDS: Diltiazem 25 MG/5 ML SDV IVPUSH ONE (06:20)
[2024-10-10] MEDS: Diltiazem 100 MG in Sodium Chloride 0.9% 100 ML IV SCH (06:30)
[2024-10-10] MEDS: Furosemide 20 MG/2 ML VIAL IVPUSH SCH (07:39)
[2024-10-10] MEDS: Famotidine 20 MG Tab PO SCH (07:40)
[2024-10-10 07:42] LABS: BASOPHILS ABSOLUTE AUTO 0.03 10^3/uL (0.00-0.50); BASOPHILS PERCENT AUTO 0.5 % (0-1); EOSINOPHILS ABSOLUTE AUTO 0.27 10^3/uL (0.00-1.50); EOSINOPHILS PERCENT AUTO 4.2 % (0-6); HEMATOCRIT 41.7 % (37.0-47.0); HEMOGLOBIN 13.7 g/dL (12.0-16.0); LYMPHOCYTES ABSOLUTE AUTO 0.78 10^3/uL (0.60-5.00); LYMPHOCYTES PERCENT AUTO 12.2 % (24-44); MEAN CORPUSCULAR HEMOGLOBIN 33.3 pg (27.0-32.0); MEAN CORPUSCULAR HGB CONC 32.9 g/dL (32.0-36.0); MEAN CORPUSCULAR VOLUME 101.2 fL (83.0-97.0); MONOCYTES ABSOLUTE AUTO 0.86 10^3/uL (0.00-1.50); MONOCYTES PERCENT AUTO 13.4 % (0-10); NEUTROPHILS ABSOLUTE AUTO 4.47 x10^3/uL (1.80-8.00); NEUTROPHILS PERCENT AUTO 69.7 % (41-71); PLATELET COUNT,PLT 187 10^3/uL (150-400); RED BLOOD CELL COUNT 4.12 x10^6/uL (4.00-5.50); WHITE BLOOD CELL COUNT,WBC 6.4 10^3/uL (4.0-11.0)
[2024-10-10] MEDS: Magnesium Oxide 400 MG Tab PO SCH ×2 (07:42→19:32)
[2024-10-10] MEDS: Vitamin B Complex Cap PO SCH (07:42)
[2024-10-10] MEDS: Vitamin E (dl-alpha-tocopherol acetate) 400 Unit Cap PO SCH (07:42)
[2024-10-10] MEDS: Cholecalciferol (Vitamin D3) 5,000 UNIT Tab PO SCH (07:43)
[2024-10-10 07:55] LABS: CALCIUM 9.8 mg/dL (8.4-10.1); CREATININE 1.4 mg/dL (0.6-1.0); EST CRCL DRUG DOSING (CG) 25.95 mL/min; MAGNESIUM 1.5 mg/dL (1.8-2.4); POTASSIUM,K 3.5 mEq/L (3.5-5.0)
[2024-10-10] MEDS: atorvaSTATin 20 MG Tab PO SCH (11:44)
[2024-10-10] MEDS ORDERED: Non-Formulary Medication 1 Each (Lutein [Lutein] 20 MG Capsule) PO SCH (12:00)
[2024-10-10] MEDS ORDERED: Metoprolol Succinate 25 MG Tab.ER PO SCH (12:00)
[2024-10-10] MEDS: Furosemide 20 MG/2 ML VIAL IVPUSH ONE (12:12)
[2024-10-10] MEDS: Diltiazem 120 MG Cap.CD PO SCH (12:13)
[2024-10-10] MEDS: Potassium Chloride 10 MEQ Tab.ER PO SCH (12:15)
[2024-10-11] MEDS: Meclizine 12.5 MG Tab PO PRN (06:17)
[2024-10-11] MEDS: Furosemide 40 MG/4 ML VIAL IVPUSH SCH (07:35)
[2024-10-11] MEDS: Metoprolol Succinate 25 MG Tab.ER PO SCH (07:38)
[2024-10-11 07:59] LABS: BASOPHILS ABSOLUTE AUTO 0.03 10^3/uL (0.00-0.50); BASOPHILS PERCENT AUTO 0.5 % (0-1); EOSINOPHILS ABSOLUTE AUTO 0.24 10^3/uL (0.00-1.50); HEMATOCRIT 39.7 % (37.0-47.0); HEMOGLOBIN 13.2 g/dL (12.0-16.0); IMMATURE GRAN ABSOLUTE AUTO 0.01 10^3/uL (0.00-0.49); IMMATURE GRAN PERCENT AUTO 0.2 % (0.0-4.9); LYMPHOCYTES ABSOLUTE AUTO 0.78 10^3/uL (0.60-5.00); LYMPHOCYTES PERCENT AUTO 13.1 % (24-44); MEAN CORPUSCULAR HEMOGLOBIN 33.5 pg (27.0-32.0); MEAN CORPUSCULAR HGB CONC 33.2 g/dL (32.0-36.0); MEAN CORPUSCULAR VOLUME 100.8 fL (83.0-97.0); MONOCYTES ABSOLUTE AUTO 0.86 10^3/uL (0.00-1.50); MONOCYTES PERCENT AUTO 14.4 % (0-10); NEUTROPHILS ABSOLUTE AUTO 4.04 x10^3/uL (1.80-8.00); NEUTROPHILS PERCENT AUTO 67.8 % (41-71); PLATELET COUNT,PLT 188 10^3/uL (150-400); RED BLOOD CELL COUNT 3.94 x10^6/uL (4.00-5.50)
[2024-10-11 08:38] LABS: CALCIUM 9.6 mg/dL (8.4-10.1); CREATININE 1.4 mg/dL (0.6-1.0); EST CRCL DRUG DOSING (CG) 25.95 mL/min; MAGNESIUM 1.5 mg/dL (1.8-2.4); POTASSIUM,K 3.6 mEq/L (3.5-5.0)
[2024-10-11] MEDS: Magnesium Sulfate/Water Premix 2 GM in Premix Bag 1 BAG IV ONE (11:59)
[2024-10-12] MEDS: Furosemide 40 MG Tab PO SCH (07:54)
[2024-10-12 09:07] LABS: POTASSIUM,K 3.7 mEq/L (3.5-5.0)
[2024-10-12 09:08] LABS: CALCIUM 9.2 mg/dL (8.4-10.1); CREATININE 1.5 mg/dL (0.6-1.0); EST CRCL DRUG DOSING (CG) 24.23 mL/min
[2024-10-13] MEDS: Docusate Sodium 100 MG Cap PO PRN (04:45)
[2024-10-13 07:28] LABS: BASOPHILS ABSOLUTE AUTO 0.04 10^3/uL (0.00-0.50); BASOPHILS PERCENT AUTO 0.6 % (0-1); EOSINOPHILS ABSOLUTE AUTO 0.32 10^3/uL (0.00-1.50); EOSINOPHILS PERCENT AUTO 5.2 % (0-6); HEMATOCRIT 37.6 % (37.0-47.0); HEMOGLOBIN 12.4 g/dL (12.0-16.0); IMMATURE GRAN ABSOLUTE AUTO 0.01 10^3/uL (0.00-0.49); IMMATURE GRAN PERCENT AUTO 0.2 % (0.0-4.9); LYMPHOCYTES ABSOLUTE AUTO 0.91 10^3/uL (0.60-5.00); LYMPHOCYTES PERCENT AUTO 14.7 % (24-44); MEAN CORPUSCULAR HEMOGLOBIN 33.1 pg (27.0-32.0); MEAN CORPUSCULAR VOLUME 100.3 fL (83.0-97.0); MONOCYTES ABSOLUTE AUTO 1.05 10^3/uL (0.00-1.50); NEUTROPHILS ABSOLUTE AUTO 3.86 x10^3/uL (1.80-8.00); NEUTROPHILS PERCENT AUTO 62.3 % (41-71); PLATELET COUNT,PLT 184 10^3/uL (150-400); RED BLOOD CELL COUNT 3.75 x10^6/uL (4.00-5.50); WHITE BLOOD CELL COUNT,WBC 6.2 10^3/uL (4.0-11.0)
[2024-10-13 07:58] LABS: CALCIUM 9.3 mg/dL (8.4-10.1); CREATININE 1.5 mg/dL (0.6-1.0); EST CRCL DRUG DOSING (CG) 24.23 mL/min; MAGNESIUM 1.9 mg/dL (1.8-2.4); POTASSIUM,K 3.6 mEq/L (3.5-5.0)
[2024-10-13 12:49] VITALS: BP 115/53; PULSE 79
== END 2024-10-13 13:15 | disposition home health service (06) | DRG 292 ==
LOC: CC.ED 11:01 → CC.MS 11:50 → UNDOADMOB 11:50 → CC.MS 12:10 → OBSVTOIN 10-10 11:24
PROVIDERS: ADMIT Nurse Practitioner; ATTEND Nurse Practitioner
DX: I50.9 Heart failure, unspecified (principal); I48.20 Chronic atrial fibrillation, unspecified; E78.00 Pure hypercholesterolemia, unspecified; J44.9 Chronic obstructive pulmonary disease, unspecified; K59.09 Other constipation; K21.9 Gastro-esophageal reflux disease without esophagitis; M81.0 Age-related osteoporosis without current pathological fracture; F15.90 Other stimulant use, unspecified, uncomplicated; Z90.49 Acquired absence of other specified parts of digestive tract; Z88.6 Allergy status to analgesic agent; Z88.5 Allergy status to narcotic agent; Z88.8 Allergy status to other drugs, medicaments and biological substances; Z79.02 Long term (current) use of antithrombotics/antiplatelets; Z79.899 Other long term (current) drug therapy; Z79.1 Long term (current) use of non-steroidal anti-inflammatories (NSAID); Z98.890 Other specified postprocedural states
CPT/HCPCS: 36415; 71046; 80048; 80053; 83735; 83880; 84484; 85025; 85379; 86140; 87428-QW; 93005; 93010; 93306; 96365; 96366; 96374; 96375; 96376; 97110-GP; 97161-GP; 99285-25; A9270-GY; G0378; J1940; J3475; J3490

== ENCOUNTER 2024-10-31 09:04 | Observation (INO) | payer MEDICARE, OTHER ==
[2024-10-31 09:57] LABS: BASOPHILS ABSOLUTE AUTO 0.03 10^3/uL (0.00-0.50); BASOPHILS PERCENT AUTO 0.3 % (0-1); EOSINOPHILS PERCENT AUTO 1.1 % (0-6); HEMATOCRIT 46.6 % (37.0-47.0); HEMOGLOBIN 15.9 g/dL (12.0-16.0); IMMATURE GRAN ABSOLUTE AUTO 0.01 10^3/uL (0.00-0.49); IMMATURE GRAN PERCENT AUTO 0.1 % (0.0-4.9); LYMPHOCYTES ABSOLUTE AUTO 1.12 10^3/uL (0.60-5.00); LYMPHOCYTES PERCENT AUTO 12.7 % (24-44); MEAN CORPUSCULAR HEMOGLOBIN 32.4 pg (27.0-32.0); MEAN CORPUSCULAR HGB CONC 34.1 g/dL (32.0-36.0); MEAN CORPUSCULAR VOLUME 94.9 fL (83.0-97.0); MONOCYTES ABSOLUTE AUTO 0.82 10^3/uL (0.00-1.50); MONOCYTES PERCENT AUTO 9.3 % (0-10); NEUTROPHILS ABSOLUTE AUTO 6.73 x10^3/uL (1.80-8.00); NEUTROPHILS PERCENT AUTO 76.5 % (41-71); PLATELET COUNT,PLT 185 10^3/uL (150-400); RED BLOOD CELL COUNT 4.91 x10^6/uL (4.00-5.50); WHITE BLOOD CELL COUNT,WBC 8.8 10^3/uL (4.0-11.0)
[2024-10-31 10:12] LABS: ALANINE AMINOTRANSFERASE,ALT 25 U/L (12-78); ALBUMIN 3.7 g/dL (3.4-5.0); ALKALINE PHOSPHATASE 100 U/L (46-116); ASPARTATE AMNIOTRANSFERASE,AST 33 U/L (15-37); BILIRUBIN TOTAL 2.4 mg/dL (0.0-1.0); BLOOD UREA NITROGEN,BUN 26 mg/dL (7-18); CALCIUM 11.6 mg/dL (8.4-10.1); CARBON DIOXIDE,CO2 35 mmol/L (21-32); CHLORIDE,CL 87 mEq/L (98-106); GLUCOSE RANDOM 134 mg/dL (75-99); MAGNESIUM 2.4 mg/dL (1.8-2.4); PROTEIN TOTAL,TP 7.2 g/dL (6.4-8.2); SODIUM,NA 128 mEq/L (136-145)
[2024-10-31 10:17] LABS: ESTIMATED GFR 24 mL/min (>=60)
[2024-10-31 10:23] LABS: INR 1.16 (0.92-1.18); PROTHROMBIN TIME 12.1 SEC (9.3-11.3)
[2024-10-31 10:23] LABS: APPEARANCE,URINE CLEAR (CLEAR); BILIRUBIN,URINE NEGATIVE (NEGATIVE); COLOR,URINE YELLOW (YELLOW); GLUCOSE,URINE NEGATIVE (NEGATIVE); KETONES,URINE NEGATIVE (NEGATIVE); LEUKOCYTE ESTERASE,URINE SMALL (NEGATIVE); NITRITE,URINE NEGATIVE (NEGATIVE); OCCULT BLOOD,URINE NEGATIVE (NEGATIVE); PH,URINE 7.5 (4.5-8.0); PROTEIN,URINE NEGATIVE (NEGATIVE); UROBILINOGEN,URINE 0.2 EU/dL (0.2-1.0)
[2024-10-31 10:41] LABS: BACTERIA,URINE RARE /HPF (NOT SEEN); EPITHELIAL CELLS,URINE RARE /HPF (NOT SEEN); MUCUS,URINE NOT SEEN /HPF (NOT SEEN); RBC,URINE NOT SEEN /HPF (0-5); WBC,URINE 0-5 /HPF (0-5)
[2024-10-31] MEDS: Potassium Chloride 20 MEQ Tab.ER PO ONE (11:21)
[2024-10-31] MEDS: NS + KCl 20mEq/L 1,000 ML IV SCH (11:21)
[2024-10-31] MEDS ORDERED: Docusate Sodium 100 MG Cap PO PRN (11:33)
[2024-10-31] MEDS ORDERED: Acetaminophen 325 MG Tab PO PRN (11:33)
[2024-10-31] MEDS ORDERED: Albuterol/Ipratropium 3.0-0.5 MG/3 ML Neb Soln NEB PRN (11:33)
[2024-10-31] MEDS ORDERED: Polyethylene Glycol 3350 Powder 17 GM Packet PO PRN (11:33)
[2024-10-31] MEDS ORDERED: Ondansetron 4 MG/2 ML SDV IV PRN (11:33)
[2024-10-31] MEDS ORDERED: Ondansetron 4 MG Tab.DIS PO PRN (11:33)
[2024-10-31] MEDS ORDERED: Pantoprazole 40 MG Tab.CR PO PRN (11:51)
[2024-10-31] MEDS ORDERED: Loratadine 10 MG Tab PO PRN (11:52)
[2024-10-31] MEDS ORDERED: Non-Formulary Medication 1 Each (Lutein [Lutein] 20 MG Capsule) PO SCH (12:00)
[2024-10-31] MEDS: Furosemide 40 MG Tab PO ONE (12:10)
[2024-10-31] MEDS: Apixaban 5 MG Tab PO ONE (12:10)
[2024-10-31] MEDS: Famotidine 20 MG Tab PO ONE (12:10)
[2024-10-31] MEDS: atorvaSTATin 20 MG Tab PO SCH (12:10)
[2024-10-31] MEDS: Diltiazem 120 MG Cap.CD PO ONE (12:11)
[2024-10-31] MEDS: Metoprolol Succinate 25 MG Tab.ER PO SCH (12:11)
[2024-10-31] MEDS ORDERED: Meclizine 12.5 MG Tab PO PRN (13:34)
[2024-10-31] MEDS: Furosemide 20 MG Tab PO SCH (16:55)
[2024-10-31] MEDS: Calcium Carbonate 500 MG Tab.Chew PO SCH (16:56)
[2024-10-31] MEDS ORDERED: Potassium Chloride 20 MEQ Tab.ER PO SCH (20:00)
[2024-10-31] MEDS ORDERED: Potassium Chloride 20 MEQ Packet PO SCH (20:00)
[2024-10-31] MEDS: Potassium Chloride 10 MEQ Tab.ER PO SCH (20:15)
[2024-10-31] MEDS: Magnesium Oxide 400 MG Tab PO SCH (20:16)
[2024-10-31] MEDS: Apixaban 5 MG Tab PO SCH (20:16)
[2024-11-01 07:45] LABS: BASOPHILS ABSOLUTE AUTO 0.05 10^3/uL (0.00-0.50); BASOPHILS PERCENT AUTO 0.7 % (0-1); EOSINOPHILS ABSOLUTE AUTO 0.31 10^3/uL (0.00-1.50); HEMATOCRIT 45.2 % (37.0-47.0); HEMOGLOBIN 15.2 g/dL (12.0-16.0); IMMATURE GRAN ABSOLUTE AUTO 0.01 10^3/uL (0.00-0.49); IMMATURE GRAN PERCENT AUTO 0.1 % (0.0-4.9); LYMPHOCYTES PERCENT AUTO 15.6 % (24-44); MEAN CORPUSCULAR HEMOGLOBIN 32.7 pg (27.0-32.0); MEAN CORPUSCULAR HGB CONC 33.6 g/dL (32.0-36.0); MEAN CORPUSCULAR VOLUME 97.2 fL (83.0-97.0); MONOCYTES ABSOLUTE AUTO 1.24 10^3/uL (0.00-1.50); MONOCYTES PERCENT AUTO 16.2 % (0-10); NEUTROPHILS ABSOLUTE AUTO 4.86 x10^3/uL (1.80-8.00); NEUTROPHILS PERCENT AUTO 63.4 % (41-71); PLATELET COUNT,PLT 181 10^3/uL (150-400); RED BLOOD CELL COUNT 4.65 x10^6/uL (4.00-5.50); WHITE BLOOD CELL COUNT,WBC 7.7 10^3/uL (4.0-11.0)
[2024-11-01] MEDS: Vitamin B Complex Cap PO SCH (07:52)
[2024-11-01] MEDS: Furosemide 40 MG Tab PO SCH (07:53)
[2024-11-01] MEDS: Vitamin E (dl-alpha-tocopherol acetate) 400 Unit Cap PO SCH (07:53)
[2024-11-01] MEDS: Famotidine 20 MG Tab PO SCH (07:53)
[2024-11-01] MEDS: Cholecalciferol (Vitamin D3) 5,000 UNIT Tab PO SCH (07:54)
[2024-11-01] MEDS ORDERED: Magnesium Oxide 400 MG Tab PO SCH (08:00)
[2024-11-01] MEDS: Diltiazem 120 MG Cap.CD PO SCH (08:53)
[2024-11-01 08:55] LABS: ALBUMIN 3.2 g/dL (3.4-5.0); BILIRUBIN TOTAL 1.7 mg/dL (0.0-1.0); CALCIUM 10.2 mg/dL (8.4-10.1); CREATININE 1.8 mg/dL (0.6-1.0); EST CRCL DRUG DOSING (CG) 16.93 mL/min; MAGNESIUM 2.1 mg/dL (1.8-2.4); POTASSIUM,K 3.3 mEq/L (3.5-5.0); PROTEIN TOTAL,TP 6.5 g/dL (6.4-8.2)
[2024-11-01 13:52] VITALS: BP 116/52
[2024-11-01] MEDS: Potassium Chloride 20 MEQ Tab.ER PO ONE (13:53)
[2024-11-01 13:54] VITALS: PULSE 78
== END 2024-11-01 16:45 | disposition home or self-care (01) ==
LOC: CC.ED 09:04 → INTOOBSV 11:01 → UNDOADMOB 11:01 → CC.MS 11:01
PROVIDERS: ADMIT Nurse Practitioner; ATTEND Nurse Practitioner
DX: E87.6 Hypokalemia (principal); N17.9 Acute kidney failure, unspecified; R42 Dizziness and giddiness; I48.91 Unspecified atrial fibrillation; E78.00 Pure hypercholesterolemia, unspecified; K21.9 Gastro-esophageal reflux disease without esophagitis; Z79.01 Long term (current) use of anticoagulants; Z88.5 Allergy status to narcotic agent; Z88.8 Allergy status to other drugs, medicaments and biological substances; Z79.899 Other long term (current) drug therapy; Z20.822 Contact with and (suspected) exposure to COVID-19
CPT/HCPCS: 36415; 70450; 71046; 72125; 72170; 80053; 81001; 83735; 84484; 85025; 85610; 85730; 87428-QW; 93005; 93010; 96365; 96366; 99223; 99238; 99285-25; A9270-GY; G0378; J3480

== ENCOUNTER 2024-11-02 13:05 | Inpatient (IN) | payer MEDICARE, OTHER ==
[2024-11-02] MEDS: Metoprolol Tartrate 5 MG/5 ML SDV IVPUSH ONE (13:20)
[2024-11-02] MEDS: Metoprolol Tartrate 5 MG/5 ML SDV ONE (13:20)
[2024-11-02] MEDS: Ondansetron 4 MG/2 ML SDV IVPUSH SCH (13:23)
[2024-11-02] MEDS: fentaNYL 50 MCG/ML SDV IVPUSH ONE (13:26)
[2024-11-02 13:42] LABS: BASOPHILS ABSOLUTE AUTO 0.04 10^3/uL (0.00-0.50); BASOPHILS PERCENT AUTO 0.3 % (0-1); EOSINOPHILS ABSOLUTE AUTO 0.16 10^3/uL (0.00-1.50); EOSINOPHILS PERCENT AUTO 1.3 % (0-6); HEMATOCRIT 50.5 % (37.0-47.0); HEMOGLOBIN 16.8 g/dL (12.0-16.0); IMMATURE GRAN ABSOLUTE AUTO 0.04 10^3/uL (0.00-0.49); IMMATURE GRAN PERCENT AUTO 0.3 % (0.0-4.9); LYMPHOCYTES ABSOLUTE AUTO 1.82 10^3/uL (0.60-5.00); LYMPHOCYTES PERCENT AUTO 15.3 % (24-44); MEAN CORPUSCULAR HEMOGLOBIN 32.3 pg (27.0-32.0); MEAN CORPUSCULAR HGB CONC 33.3 g/dL (32.0-36.0); MEAN CORPUSCULAR VOLUME 97.1 fL (83.0-97.0); MONOCYTES ABSOLUTE AUTO 0.78 10^3/uL (0.00-1.50); MONOCYTES PERCENT AUTO 6.6 % (0-10); NEUTROPHILS ABSOLUTE AUTO 9.02 x10^3/uL (1.80-8.00); NEUTROPHILS PERCENT AUTO 76.2 % (41-71); PLATELET COUNT,PLT 203 10^3/uL (150-400); WHITE BLOOD CELL COUNT,WBC 11.9 10^3/uL (4.0-11.0)
[2024-11-02 13:52] LABS: ALANINE AMINOTRANSFERASE,ALT 32 U/L (12-78); ALBUMIN 3.9 g/dL (3.4-5.0); ALKALINE PHOSPHATASE 114 U/L (46-116); ASPARTATE AMNIOTRANSFERASE,AST 51 U/L (15-37); BILIRUBIN TOTAL 2.1 mg/dL (0.0-1.0); BLOOD UREA NITROGEN,BUN 33 mg/dL (7-18); C-REACTIVE PROTEIN < 0.50 mg/dL (<=0.50); CALCIUM 11.7 mg/dL (8.4-10.1); CARBON DIOXIDE,CO2 30 mmol/L (21-32); CHLORIDE,CL 89 mEq/L (98-106); CREATININE 2.3 mg/dL (0.6-1.0); ESTIMATED GFR 20 mL/min (>=60); GLUCOSE RANDOM 184 mg/dL (75-99); MAGNESIUM 2.3 mg/dL (1.8-2.4); POTASSIUM,K 3.4 mEq/L (3.5-5.0); PRO B-TYPE NATRIUR PEPT,BNPPRO 2293 pg/mL (0-1000); SODIUM,NA 135 mEq/L (136-145)
[2024-11-02] MEDS: Diltiazem 25 MG/5 ML SDV IVPUSH ONE (14:15)
[2024-11-02] MEDS: Diltiazem 100 MG in Sodium Chloride 0.9% 100 ML IV SCH (14:20)
[2024-11-02] MEDS: Pantoprazole 40 MG Vial IVPUSH ONE (15:15)
[2024-11-02] MEDS: Sodium Chloride 0.9% 1,000 ML IV ONE (15:15)
[2024-11-02] MEDS: Sodium Chloride 0.9% 500 ML IV SCH (15:15)
[2024-11-02] MEDS ORDERED: metroNIDAZOLE/Normal Saline 500 MG in Premix Bag 1 BAG IV SCH (16:45)
[2024-11-02 16:46] LABS: APPEARANCE,URINE CLEAR (CLEAR); BILIRUBIN,URINE NEGATIVE (NEGATIVE); COLOR,URINE YELLOW (YELLOW); GLUCOSE,URINE NEGATIVE (NEGATIVE); KETONES,URINE NEGATIVE (NEGATIVE); LEUKOCYTE ESTERASE,URINE NEGATIVE (NEGATIVE); NITRITE,URINE NEGATIVE (NEGATIVE); OCCULT BLOOD,URINE NEGATIVE (NEGATIVE); PH,URINE 7.5 (4.5-8.0); PROTEIN,URINE NEGATIVE (NEGATIVE); UROBILINOGEN,URINE 0.2 EU/dL (0.2-1.0)
[2024-11-02] MEDS: cefTRIAXone 2 GM Vial IVPUSH ONE (17:03)
[2024-11-02] MEDS: Piperacillin/Tazobactam 4.5 GM in Sodium Chloride 0.9% 100 ML IV ONE (17:11)
[2024-11-02] MEDS: Albuterol/Ipratropium 3.0-0.5 MG/3 ML Neb Soln NEB ONE (17:11)
[2024-11-02] MEDS ORDERED: Albuterol 0.083% 2.5 MG/3 ML Neb Soln NEB PRN (17:51)
[2024-11-02] MEDS ORDERED: Acetaminophen 650 MG Supp RECTAL PRN (17:51)
[2024-11-02] MEDS ORDERED: Ondansetron 4 MG/2 ML SDV IV PRN (17:51)
[2024-11-02] MEDS ORDERED: Morphine 2 MG/ML SYRINGE IVPUSH PRN (17:51)
[2024-11-02] MEDS ORDERED: Ondansetron 4 MG Tab.DIS PO PRN (17:51)
[2024-11-02 18:05] LABS: CALCIUM 9.9 mg/dL (8.4-10.1); CREATININE 2.4 mg/dL (0.6-1.0); EST CRCL DRUG DOSING (CG) 12.7 mL/min; POTASSIUM,K 3.3 mEq/L (3.5-5.0)
[2024-11-02] MEDS ORDERED: Meclizine 12.5 MG Tab PO PRN (18:32)
[2024-11-02] MEDS: Sodium Chloride 0.9% 1,000 ML IV SCH (18:34)
[2024-11-02] MEDS: Apixaban 5 MG Tab PO SCH (19:30)
[2024-11-02] MEDS: Potassium Chloride 10 MEQ Tab.ER PO SCH (19:36)
[2024-11-02] MEDS: Albuterol/Ipratropium 3.0-0.5 MG/3 ML Neb Soln NEB SCH (19:36)
[2024-11-02] MEDS: Magnesium Oxide 400 MG Tab PO SCH (19:36)
[2024-11-02] MEDS: Piperacillin/Tazobactam 4.5 GM in Sodium Chloride 0.9% 100 ML IV SCH (20:33)
[2024-11-02] MEDS ORDERED: Piperacillin/Tazobactam 4.5 GM in Sodium Chloride 0.9% 100 ML IV SCH (22:00)
[2024-11-03] MEDS: Vitamin B Complex Cap PO SCH (07:33)
[2024-11-03 07:34] LABS: CREATININE 2.1 mg/dL (0.6-1.0); EST CRCL DRUG DOSING (CG) 14.51 mL/min; MAGNESIUM 1.8 mg/dL (1.8-2.4)
[2024-11-03] MEDS: Furosemide 40 MG Tab PO SCH (07:34)
[2024-11-03] MEDS: Lactobacillus Rhamnosus GG (Probiotic) Cap PO SCH (07:34)
[2024-11-03 07:36] LABS: BASOPHILS ABSOLUTE AUTO 0.04 10^3/uL (0.00-0.50); BASOPHILS PERCENT AUTO 0.3 % (0-1); EOSINOPHILS ABSOLUTE AUTO 0.05 10^3/uL (0.00-1.50); EOSINOPHILS PERCENT AUTO 0.4 % (0-6); HEMATOCRIT 44.7 % (37.0-47.0); HEMOGLOBIN 14.7 g/dL (12.0-16.0); IMMATURE GRAN ABSOLUTE AUTO 0.02 10^3/uL (0.00-0.49); IMMATURE GRAN PERCENT AUTO 0.2 % (0.0-4.9); LYMPHOCYTES ABSOLUTE AUTO 1.27 10^3/uL (0.60-5.00); LYMPHOCYTES PERCENT AUTO 10.7 % (24-44); MEAN CORPUSCULAR HEMOGLOBIN 32.6 pg (27.0-32.0); MEAN CORPUSCULAR HGB CONC 32.9 g/dL (32.0-36.0); MEAN CORPUSCULAR VOLUME 99.1 fL (83.0-97.0); MONOCYTES ABSOLUTE AUTO 1.35 10^3/uL (0.00-1.50); MONOCYTES PERCENT AUTO 11.4 % (0-10); NEUTROPHILS ABSOLUTE AUTO 9.14 x10^3/uL (1.80-8.00); PLATELET COUNT,PLT 187 10^3/uL (150-400); RED BLOOD CELL COUNT 4.51 x10^6/uL (4.00-5.50); WHITE BLOOD CELL COUNT,WBC 11.9 10^3/uL (4.0-11.0)
[2024-11-03 07:58] LABS: POTASSIUM,K 2.8 mEq/L (3.5-5.0)
[2024-11-03] MEDS: Pantoprazole 40 MG Vial IVPUSH SCH (08:16)
[2024-11-03] MEDS ORDERED: Calcium Carbonate 500 MG Tab.Chew PO PRN (09:42)
[2024-11-03] MEDS: Calcium Carbonate 500 MG Tab.Chew PO ONE (10:06)
[2024-11-03] MEDS: Potassium Chloride Riders 20 MEQ in Premix Bag 1 BAG IV ONE (10:21)
[2024-11-03] MEDS: Acetaminophen 325 MG Tab PO PRN (11:55)
[2024-11-03] MEDS: Loperamide 2 MG Cap PO PRN (11:56)
[2024-11-03] MEDS: Metoprolol Succinate 25 MG Tab.ER PO SCH (11:57)
[2024-11-03] MEDS: atorvaSTATin 20 MG Tab PO SCH (11:57)
[2024-11-03 12:05] LABS: CORONAVIRUS COVID-19 NAA NEGATIVE (NEGATIVE); INFLUENZA A NAA NEGATIVE (NEGATIVE); INFLUENZA B NAA NEGATIVE (NEGATIVE)
[2024-11-03] MEDS: Furosemide 20 MG Tab PO SCH (15:52)
[2024-11-03 16:19] LABS: CALCIUM 8.9 mg/dL (8.4-10.1); CREATININE 2.2 mg/dL (0.6-1.0); EST CRCL DRUG DOSING (CG) 13.85 mL/min
[2024-11-03] MEDS: Potassium Chloride 20 MEQ Tab.ER PO SCH (17:17)
[2024-11-04 07:31] LABS: BASOPHILS ABSOLUTE AUTO 0.04 10^3/uL (0.00-0.50); BASOPHILS PERCENT AUTO 0.4 % (0-1); EOSINOPHILS ABSOLUTE AUTO 0.28 10^3/uL (0.00-1.50); EOSINOPHILS PERCENT AUTO 2.7 % (0-6); HEMATOCRIT 44.8 % (37.0-47.0); HEMOGLOBIN 14.7 g/dL (12.0-16.0); IMMATURE GRAN ABSOLUTE AUTO 0.03 10^3/uL (0.00-0.49); IMMATURE GRAN PERCENT AUTO 0.3 % (0.0-4.9); LYMPHOCYTES ABSOLUTE AUTO 1.26 10^3/uL (0.60-5.00); LYMPHOCYTES PERCENT AUTO 12.3 % (24-44); MEAN CORPUSCULAR HEMOGLOBIN 32.8 pg (27.0-32.0); MEAN CORPUSCULAR HGB CONC 32.8 g/dL (32.0-36.0); MONOCYTES ABSOLUTE AUTO 1.13 10^3/uL (0.00-1.50); NEUTROPHILS ABSOLUTE AUTO 7.49 x10^3/uL (1.80-8.00); NEUTROPHILS PERCENT AUTO 73.3 % (41-71); PLATELET COUNT,PLT 189 10^3/uL (150-400); RED BLOOD CELL COUNT 4.48 x10^6/uL (4.00-5.50); WHITE BLOOD CELL COUNT,WBC 10.2 10^3/uL (4.0-11.0)
[2024-11-04 07:37] LABS: ALANINE AMINOTRANSFERASE,ALT 28 U/L (12-78); ALKALINE PHOSPHATASE 77 U/L (46-116); ASPARTATE AMNIOTRANSFERASE,AST 43 U/L (15-37); BILIRUBIN TOTAL 1.6 mg/dL (0.0-1.0); BLOOD UREA NITROGEN,BUN 22 mg/dL (7-18); CALCIUM 8.4 mg/dL (8.4-10.1); CARBON DIOXIDE,CO2 35 mmol/L (21-32); CHLORIDE,CL 98 mEq/L (98-106); CREATININE 1.8 mg/dL (0.6-1.0); EST CRCL DRUG DOSING (CG) 16.93 mL/min; GLUCOSE RANDOM 88 mg/dL (75-99); MAGNESIUM 1.6 mg/dL (1.8-2.4); POTASSIUM,K 3.7 mEq/L (3.5-5.0); PROTEIN TOTAL,TP 6.4 g/dL (6.4-8.2); SODIUM,NA 140 mEq/L (136-145)
[2024-11-04 07:38] LABS: C-REACTIVE PROTEIN < 0.50 mg/dL (<=0.50); ESTIMATED GFR 27 mL/min (>=60)
[2024-11-04] MEDS: Metoprolol Succinate 25 MG Tab.ER PO ONE (11:54)
[2024-11-04] MEDS: Metoprolol Succinate 100 MG Tab.ER PO SCH (12:16)
[2024-11-04] MEDS: Diltiazem 25 MG/5 ML SDV IVPUSH STA (15:58)
[2024-11-04] MEDS ORDERED: Albuterol/Ipratropium 3.0-0.5 MG/3 ML Neb Soln NEB PRN (16:10)
[2024-11-04] MEDS: Diltiazem 120 MG Cap.CD PO SCH (16:44)
[2024-11-05] MEDS: Pantoprazole 40 MG Tab.CR PO SCH (06:43)
[2024-11-05 09:03] LABS: BASOPHILS ABSOLUTE AUTO 0.04 10^3/uL (0.00-0.50); BASOPHILS PERCENT AUTO 0.5 % (0-1); EOSINOPHILS ABSOLUTE AUTO 0.26 10^3/uL (0.00-1.50); EOSINOPHILS PERCENT AUTO 3.4 % (0-6); HEMATOCRIT 48.2 % (37.0-47.0); HEMOGLOBIN 15.7 g/dL (12.0-16.0); IMMATURE GRAN ABSOLUTE AUTO 0.01 10^3/uL (0.00-0.49); IMMATURE GRAN PERCENT AUTO 0.1 % (0.0-4.9); LYMPHOCYTES ABSOLUTE AUTO 1.21 10^3/uL (0.60-5.00); MEAN CORPUSCULAR HEMOGLOBIN 32.3 pg (27.0-32.0); MEAN CORPUSCULAR HGB CONC 32.6 g/dL (32.0-36.0); MEAN CORPUSCULAR VOLUME 99.2 fL (83.0-97.0); MONOCYTES ABSOLUTE AUTO 0.65 10^3/uL (0.00-1.50); MONOCYTES PERCENT AUTO 8.6 % (0-10); NEUTROPHILS ABSOLUTE AUTO 5.38 x10^3/uL (1.80-8.00); NEUTROPHILS PERCENT AUTO 71.4 % (41-71); PLATELET COUNT,PLT 196 10^3/uL (150-400); RED BLOOD CELL COUNT 4.86 x10^6/uL (4.00-5.50); WHITE BLOOD CELL COUNT,WBC 7.6 10^3/uL (4.0-11.0)
[2024-11-05 09:17] LABS: ALANINE AMINOTRANSFERASE,ALT 26 U/L (12-78); ALBUMIN 3.2 g/dL (3.4-5.0); ALKALINE PHOSPHATASE 80 U/L (46-116); ASPARTATE AMNIOTRANSFERASE,AST 35 U/L (15-37); BILIRUBIN TOTAL 1.8 mg/dL (0.0-1.0); BLOOD UREA NITROGEN,BUN 19 mg/dL (7-18); CALCIUM 9.1 mg/dL (8.4-10.1); CARBON DIOXIDE,CO2 33 mmol/L (21-32); CHLORIDE,CL 95 mEq/L (98-106); CREATININE 1.7 mg/dL (0.6-1.0); EST CRCL DRUG DOSING (CG) 17.92 mL/min; GLUCOSE RANDOM 129 mg/dL (75-99); POTASSIUM,K 3.4 mEq/L (3.5-5.0); PROTEIN TOTAL,TP 6.9 g/dL (6.4-8.2); SODIUM,NA 135 mEq/L (136-145)
[2024-11-05 09:21] LABS: C-REACTIVE PROTEIN < 0.50 mg/dL (<=0.50); ESTIMATED GFR 29 mL/min (>=60)
[2024-11-05] MEDS ORDERED: [UNRECOGNIZED DRUG - REMARK] PO SCH (12:00)
[2024-11-06 08:23] LABS: BASOPHILS ABSOLUTE AUTO 0.05 10^3/uL (0.00-0.50); BASOPHILS PERCENT AUTO 0.7 % (0-1); EOSINOPHILS ABSOLUTE AUTO 0.29 10^3/uL (0.00-1.50); EOSINOPHILS PERCENT AUTO 3.8 % (0-6); HEMATOCRIT 48.4 % (37.0-47.0); IMMATURE GRAN ABSOLUTE AUTO 0.03 10^3/uL (0.00-0.49); IMMATURE GRAN PERCENT AUTO 0.4 % (0.0-4.9); LYMPHOCYTES ABSOLUTE AUTO 1.38 10^3/uL (0.60-5.00); LYMPHOCYTES PERCENT AUTO 18.3 % (24-44); MEAN CORPUSCULAR HEMOGLOBIN 32.6 pg (27.0-32.0); MEAN CORPUSCULAR HGB CONC 33.1 g/dL (32.0-36.0); MEAN CORPUSCULAR VOLUME 98.6 fL (83.0-97.0); MONOCYTES ABSOLUTE AUTO 0.86 10^3/uL (0.00-1.50); MONOCYTES PERCENT AUTO 11.4 % (0-10); NEUTROPHILS ABSOLUTE AUTO 4.95 x10^3/uL (1.80-8.00); NEUTROPHILS PERCENT AUTO 65.4 % (41-71); PLATELET COUNT,PLT 202 10^3/uL (150-400); RED BLOOD CELL COUNT 4.91 x10^6/uL (4.00-5.50); WHITE BLOOD CELL COUNT,WBC 7.6 10^3/uL (4.0-11.0)
[2024-11-06 08:45] LABS: CALCIUM 9.6 mg/dL (8.4-10.1); CREATININE 1.7 mg/dL (0.6-1.0); EST CRCL DRUG DOSING (CG) 17.92 mL/min; POTASSIUM,K 3.2 mEq/L (3.5-5.0)
[2024-11-06] MEDS: Potassium Chloride 20 MEQ Tab.ER PO SCH (12:29)
[2024-11-06 12:46] VITALS: BP 100/51
[2024-11-06 18:03] VITALS: PULSE 88
== END 2024-11-06 19:19 | disposition swing bed (61) | DRG 308 ==
LOC: CC.ED 13:05 → UNDOADMIN 15:43 → CC.MS 15:43
PROVIDERS: ADMIT Nurse Practitioner; ATTEND Nurse Practitioner Family
DX: I48.91 Unspecified atrial fibrillation (principal); J18.9 Pneumonia, unspecified organism; E87.20 Acidosis, unspecified; N17.9 Acute kidney failure, unspecified; R10.84 Generalized abdominal pain; R19.7 Diarrhea, unspecified; E78.00 Pure hypercholesterolemia, unspecified; M81.0 Age-related osteoporosis without current pathological fracture; J44.9 Chronic obstructive pulmonary disease, unspecified; N18.9 Chronic kidney disease, unspecified; E87.6 Hypokalemia; Z79.01 Long term (current) use of anticoagulants; Z88.6 Allergy status to analgesic agent; Z88.5 Allergy status to narcotic agent; Z88.8 Allergy status to other drugs, medicaments and biological substances; Z79.899 Other long term (current) drug therapy; Z79.1 Long term (current) use of non-steroidal anti-inflammatories (NSAID); Z79.02 Long term (current) use of antithrombotics/antiplatelets; Z90.49 Acquired absence of other specified parts of digestive tract; Z98.890 Other specified postprocedural states
CPT/HCPCS: 0240U; 36415; 70450; 71045; 71250; 72125; 72170; 74176; 80048; 80053; 81003; 82270; 82272; 82306; 83605; 83735; 83880; 84484; 85025; 85730; 86140; 87040; 87070; 87205; 87428-QW; 87493; 93005; 93010; 94640; 96365; 96366; 96375; 97110-GP; 99223; 99232; 99233; 99238; 99285-25; A9270-GY; J2405; J2470; J2543; J3010; J3480; J3490; J7030; J7040; J7620-GY

== ENCOUNTER 2024-11-06 18:54 | Inpatient (IN) | payer MEDICARE, OTHER ==
[2024-11-06] MEDS ORDERED: Ondansetron 4 MG Tab.DIS PO PRN (19:51)
[2024-11-06] MEDS ORDERED: Albuterol 0.083% 2.5 MG/3 ML Neb Soln NEB PRN (19:51)
[2024-11-06] MEDS ORDERED: Morphine 2 MG/ML SYRINGE IVPUSH PRN (19:51)
[2024-11-06] MEDS ORDERED: Acetaminophen 325 MG Tab PO PRN (19:51)
[2024-11-06] MEDS ORDERED: Calcium Carbonate 500 MG Tab.Chew PO PRN (19:51)
[2024-11-06] MEDS ORDERED: Ondansetron 4 MG/2 ML SDV IV PRN (19:51)
[2024-11-06] MEDS ORDERED: Acetaminophen 650 MG Supp RECTAL PRN (19:51)
[2024-11-06] MEDS ORDERED: Albuterol/Ipratropium 3.0-0.5 MG/3 ML Neb Soln NEB PRN (19:51)
[2024-11-06] MEDS ORDERED: Meclizine 12.5 MG Tab PO PRN (19:51)
[2024-11-06] MEDS: Apixaban 5 MG Tab PO SCH (20:44)
[2024-11-06] MEDS: Magnesium Oxide 400 MG Tab PO SCH (20:44)
[2024-11-06] MEDS: Amoxicillin/Clavulanate K 875-125 MG Tab PO SCH (20:44)
[2024-11-07] MEDS: Pantoprazole 40 MG Tab.CR PO SCH (07:02)
[2024-11-07] MEDS: Vitamin B Complex Cap PO SCH (07:39)
[2024-11-07] MEDS: Potassium Chloride 20 MEQ Tab.ER PO SCH (07:39)
[2024-11-07] MEDS: Lactobacillus Rhamnosus GG (Probiotic) Cap PO SCH (07:40)
[2024-11-07] MEDS: Furosemide 40 MG Tab PO SCH (07:40)
[2024-11-07] MEDS: Diltiazem 120 MG Cap.CD PO SCH (07:40)
[2024-11-07 07:48] LABS: BASOPHILS ABSOLUTE AUTO 0.05 10^3/uL (0.00-0.50); BASOPHILS PERCENT AUTO 0.6 % (0-1); EOSINOPHILS ABSOLUTE AUTO 0.39 10^3/uL (0.00-1.50); EOSINOPHILS PERCENT AUTO 4.8 % (0-6); HEMATOCRIT 45.1 % (37.0-47.0); HEMOGLOBIN 14.9 g/dL (12.0-16.0); IMMATURE GRAN ABSOLUTE AUTO 0.03 10^3/uL (0.00-0.49); IMMATURE GRAN PERCENT AUTO 0.4 % (0.0-4.9); LYMPHOCYTES ABSOLUTE AUTO 1.39 10^3/uL (0.60-5.00); LYMPHOCYTES PERCENT AUTO 17.2 % (24-44); MEAN CORPUSCULAR HEMOGLOBIN 32.7 pg (27.0-32.0); MEAN CORPUSCULAR VOLUME 99.1 fL (83.0-97.0); MONOCYTES ABSOLUTE AUTO 1.09 10^3/uL (0.00-1.50); MONOCYTES PERCENT AUTO 13.5 % (0-10); NEUTROPHILS ABSOLUTE AUTO 5.14 x10^3/uL (1.80-8.00); NEUTROPHILS PERCENT AUTO 63.5 % (41-71); PLATELET COUNT,PLT 203 10^3/uL (150-400); RED BLOOD CELL COUNT 4.55 x10^6/uL (4.00-5.50); WHITE BLOOD CELL COUNT,WBC 8.1 10^3/uL (4.0-11.0)
[2024-11-07 08:30] LABS: CALCIUM 9.6 mg/dL (8.4-10.1); CREATININE 1.7 mg/dL (0.6-1.0); EST CRCL DRUG DOSING (CG) 17.92 mL/min; POTASSIUM,K 3.9 mEq/L (3.5-5.0)
[2024-11-07] MEDS: Metoprolol Succinate 100 MG Tab.ER PO SCH (11:57)
[2024-11-07] MEDS: atorvaSTATin 20 MG Tab PO SCH (11:57)
[2024-11-07] MEDS: Loperamide 2 MG Cap PO PRN (13:00)
[2024-11-07] MEDS: Furosemide 20 MG Tab PO SCH (16:35)
[2024-11-09 07:26] VITALS: BP 103/52; PULSE 78
== END 2024-11-09 09:44 | disposition home or self-care (01) | DRG 947 ==
LOC: CC.MS 18:54 → UNDOADMIN 19:19
PROVIDERS: ADMIT Nurse Practitioner Family; ATTEND Nurse Practitioner Family
DX: R53.1 Weakness (principal); J18.9 Pneumonia, unspecified organism; Z66 Do not resuscitate; I48.91 Unspecified atrial fibrillation; Z79.899 Other long term (current) drug therapy; Z79.01 Long term (current) use of anticoagulants
CPT/HCPCS: 36415; 80048; 85025; 97110-GP; A9270-GY

== ENCOUNTER 2025-05-16 11:45 | Observation (INO) | payer MEDICARE, OTHER ==
[2025-05-16 12:11] LABS: BASOPHILS ABSOLUTE AUTO 0.04 10^3/uL (0.00-0.50); BASOPHILS PERCENT AUTO 0.7 % (0-1); EOSINOPHILS ABSOLUTE AUTO 0.23 10^3/uL (0.00-1.50); EOSINOPHILS PERCENT AUTO 4.3 % (0-6); IMMATURE GRAN ABSOLUTE AUTO 0.00 10^3/uL (0.00-0.49); IMMATURE GRAN PERCENT AUTO 0.0 % (0.0-4.9); LYMPHOCYTES ABSOLUTE AUTO 0.63 10^3/uL (0.60-5.00); LYMPHOCYTES PERCENT AUTO 11.7 % (24-44); MONOCYTES ABSOLUTE AUTO 0.91 10^3/uL (0.00-1.50); MONOCYTES PERCENT AUTO 16.9 % (0-10); NEUTROPHILS ABSOLUTE AUTO 3.58 x10^3/uL (1.80-8.00); NEUTROPHILS PERCENT AUTO 66.4 % (41-71); PLATELET COUNT,PLT 143 10^3/uL (150-400); RED BLOOD CELL COUNT 4.93 x10^6/uL (4.00-5.50); WHITE BLOOD CELL COUNT,WBC 5.4 10^3/uL (4.0-11.0)
[2025-05-16 12:24] LABS: INR 1.26 (0.92-1.18)
[2025-05-16 12:33] LABS: APPEARANCE,URINE CLEAR (CLEAR); GLUCOSE,URINE NEGATIVE (NEGATIVE); OCCULT BLOOD,URINE NEGATIVE (NEGATIVE)
[2025-05-16 12:43] LABS: ALANINE AMINOTRANSFERASE,ALT 18.0 U/L (12-78); ASPARTATE AMNIOTRANSFERASE,AST 22.0 U/L (15-37); BILIRUBIN TOTAL 2.7 mg/dL (0.0-1.0); BLOOD UREA NITROGEN,BUN 28.0 mg/dL (7-18); CARBON DIOXIDE,CO2 30.0 mmol/L (21-32); CHLORIDE,CL 98.0 mEq/L (98-106); CREATINE KINASE,CK 26.0 U/L (21-215); CREATININE 2.1 mg/dL (0.6-1.0); EST CRCL DRUG DOSING (CG) 14.93 mL/min; GLUCOSE RANDOM 85.0 mg/dL (75-99); LACTATE DEHYDROGENASE,LDH 219.0 U/L (100-190); POTASSIUM,K 4.7 mEq/L (3.5-5.0); PROTEIN TOTAL,TP 7.3 g/dL (6.4-8.2); SODIUM,NA 137.0 mEq/L (136-145)
[2025-05-16 12:47] LABS: SQUAMOUS EPITHELIAL CELLS,UR FEW /HPF (NOT SEEN)
[2025-05-16 12:50] LABS: ESTIMATED GFR 22.0 mL/min (>=60)
[2025-05-16] MEDS: Furosemide 40 MG/4 ML VIAL IVPUSH ONE (13:13)
[2025-05-16] MEDS ORDERED: Ondansetron 4 MG/2 ML SDV IV PRN (14:16)
[2025-05-16] MEDS ORDERED: Sodium Chloride 0.9% 10 ML Syringe FLUSH PRN (14:16)
[2025-05-16] MEDS ORDERED: Ondansetron 4 MG Tab.DIS PO PRN (14:16)
[2025-05-16] MEDS: Potassium Chloride 20 MEQ Tab.ER PO SCH (18:19)
[2025-05-17] MEDS: Furosemide 40 MG/4 ML VIAL IVPUSH SCH (07:25)
[2025-05-17] MEDS: Diltiazem 120 MG Cap.CD PO SCH (07:25)
[2025-05-17 07:52] LABS: BASOPHILS ABSOLUTE AUTO 0.03 10^3/uL (0.00-0.50); BASOPHILS PERCENT AUTO 0.6 % (0-1); EOSINOPHILS ABSOLUTE AUTO 0.26 10^3/uL (0.00-1.50); EOSINOPHILS PERCENT AUTO 4.8 % (0-6); IMMATURE GRAN ABSOLUTE AUTO 0.00 10^3/uL (0.00-0.49); IMMATURE GRAN PERCENT AUTO 0.0 % (0.0-4.9); LYMPHOCYTES ABSOLUTE AUTO 0.72 10^3/uL (0.60-5.00); LYMPHOCYTES PERCENT AUTO 13.3 % (24-44); MONOCYTES ABSOLUTE AUTO 1.17 10^3/uL (0.00-1.50); MONOCYTES PERCENT AUTO 21.5 % (0-10); NEUTROPHILS ABSOLUTE AUTO 3.25 x10^3/uL (1.80-8.00); NEUTROPHILS PERCENT AUTO 59.8 % (41-71); PLATELET COUNT,PLT 154 10^3/uL (150-400); RED BLOOD CELL COUNT 5.02 x10^6/uL (4.00-5.50); WHITE BLOOD CELL COUNT,WBC 5.4 10^3/uL (4.0-11.0)
[2025-05-17 09:46] LABS: ALANINE AMINOTRANSFERASE,ALT 19 U/L (12-78); ASPARTATE AMNIOTRANSFERASE,AST 22 U/L (15-37); BILIRUBIN TOTAL 2.5 mg/dL (0.0-1.0); BLOOD UREA NITROGEN,BUN 30 mg/dL (7-18); CARBON DIOXIDE,CO2 31 mmol/L (21-32); CHLORIDE,CL 97 mEq/L (98-106); CREATININE 2.0 mg/dL (0.6-1.0); EST CRCL DRUG DOSING (CG) 15.67 mL/min; GLUCOSE RANDOM 88 mg/dL (75-99); POTASSIUM,K 4.1 mEq/L (3.5-5.0); PROTEIN TOTAL,TP 7.2 g/dL (6.4-8.2); SODIUM,NA 136 mEq/L (136-145)
[2025-05-17 09:47] LABS: ESTIMATED GFR 24 mL/min (>=60)
[2025-05-17] MEDS ORDERED: Non-Formulary Medication 1 Each (Lutein [Lutein] 20 MG Capsule) PO SCH (12:00)
[2025-05-18 07:48] LABS: BASOPHILS ABSOLUTE AUTO 0.03 10^3/uL (0.00-0.50); BASOPHILS PERCENT AUTO 0.5 % (0-1); EOSINOPHILS ABSOLUTE AUTO 0.34 10^3/uL (0.00-1.50); EOSINOPHILS PERCENT AUTO 5.5 % (0-6); IMMATURE GRAN ABSOLUTE AUTO 0.01 10^3/uL (0.00-0.49); IMMATURE GRAN PERCENT AUTO 0.2 % (0.0-4.9); LYMPHOCYTES ABSOLUTE AUTO 0.98 10^3/uL (0.60-5.00); LYMPHOCYTES PERCENT AUTO 15.9 % (24-44); MONOCYTES ABSOLUTE AUTO 1.27 10^3/uL (0.00-1.50); MONOCYTES PERCENT AUTO 20.6 % (0-10); NEUTROPHILS ABSOLUTE AUTO 3.53 x10^3/uL (1.80-8.00); NEUTROPHILS PERCENT AUTO 57.3 % (41-71); PLATELET COUNT,PLT 155 10^3/uL (150-400); RED BLOOD CELL COUNT 4.77 x10^6/uL (4.00-5.50); WHITE BLOOD CELL COUNT,WBC 6.2 10^3/uL (4.0-11.0)
[2025-05-18 08:11] LABS: ALANINE AMINOTRANSFERASE,ALT 13 U/L (12-78); ASPARTATE AMNIOTRANSFERASE,AST 21 U/L (15-37); BILIRUBIN TOTAL 1.8 mg/dL (0.0-1.0); BLOOD UREA NITROGEN,BUN 34 mg/dL (7-18); CARBON DIOXIDE,CO2 32 mmol/L (21-32); CHLORIDE,CL 100 mEq/L (98-106); CREATININE 2.2 mg/dL (0.6-1.0); EST CRCL DRUG DOSING (CG) 14.25 mL/min; GLUCOSE RANDOM 99 mg/dL (75-99); POTASSIUM,K 4.5 mEq/L (3.5-5.0); PROTEIN TOTAL,TP 6.8 g/dL (6.4-8.2); SODIUM,NA 138 mEq/L (136-145)
[2025-05-18 08:16] LABS: ESTIMATED GFR 21 mL/min (>=60)
[2025-05-18 15:41] VITALS: BP 100/60; PULSE 72
== END 2025-05-18 15:25 | disposition home or self-care (01) ==
LOC: CC.ED 11:45 → CC.MS 13:27
PROVIDERS: ADMIT Nurse Practitioner Family; ATTEND Nurse Practitioner Family
DX: I50.9 Heart failure, unspecified (principal); R53.1 Weakness; R42 Dizziness and giddiness; I48.91 Unspecified atrial fibrillation; E78.00 Pure hypercholesterolemia, unspecified; K21.9 Gastro-esophageal reflux disease without esophagitis; Z88.5 Allergy status to narcotic agent; Z88.8 Allergy status to other drugs, medicaments and biological substances; Z79.01 Long term (current) use of anticoagulants; Z79.899 Other long term (current) drug therapy
CPT/HCPCS: 36415; 71045; 80053; 81001; 82550; 83615; 83690; 83735; 83880; 84484; 85025; 85610; 85730; 86140; 93005; 93010; 97161-GP; 97530-GP; 99223; 99233; 99238; A9270-GY; J1938